=== PATIENT | female | born 1960 | race African-American/Black ===

== ENCOUNTER 2017-06-01 15:18 | Outpatient (CLI) | payer MEDICARE, MEDICAID | END 2017-06-01 15:19 | disposition home or self-care (01) | LOC: BICMAMMO 15:18 | PROVIDERS: ATTEND Family Medicine | DX: Z12.31 Encounter for screening mammogram for malignant neoplasm of breast (principal) | CPT/HCPCS: 77063; 77067 ==

== ENCOUNTER 2017-10-05 11:43 | Outpatient (CLI) | payer MEDICARE, MEDICAID | END 2017-10-05 11:44 | disposition home or self-care (01) | LOC: BICRAD 11:43 | PROVIDERS: ATTEND Internal Medicine | DX: R10.12 Left upper quadrant pain (principal); R10.13 Epigastric pain; K59.00 Constipation, unspecified; R11.2 Nausea with vomiting, unspecified; R63.4 Abnormal weight loss; I70.0 Atherosclerosis of aorta; I77.810 Thoracic aortic ectasia | CPT/HCPCS: 74022 ==

== ENCOUNTER 2017-12-20 08:38 | Outpatient (CLI) | payer MEDICARE, MEDICAID ==
--- NOTE | 2017-12-20 10:51 | CT ---
CT ABDOMEN AND PELVIS WITHOUT CONTRAST: 12/20/2017 PROVIDED CLINICAL HISTORY: Left upper quadrant pain. Early satiety. COMPARISON: 12/02/2014 FINDINGS: The visualized lung bases are free of significant opacity. The solid abdominal organs are suboptimally evaluated in the absence of IV contrast material. Promin ent vascular calcifications are seen. Predominantly vascular calcifications are noted involving each kidney, with urinary tract calculi difficult to entirely exclude. There is no evidence for ureteral or bladder calculus. There is no bowel dilatation, inflammatory fat stranding, free fluid, or lymph node enlargement appar ent. The abdominal aorta is ectatic, measuring up to 2.7 cm proximally. Conspicuous atherosclerotic vascular calcification involves the iliac arteries bilaterally. The osseous structures demonstrate no concerning osteoblastic or osteolytic lesions. A benign appear ing sclerotic focus in the left femoral neck appears stable, with respect to the prior study. There is a small gastric diverticulum arising from the gastric cardia. IMPRESSION: No evidence for an acute process. POS: [facility]
== END 2017-12-20 08:39 | disposition home or self-care (01) ==
LOC: BICCT 08:38
PROVIDERS: ATTEND Internal Medicine
DX: K29.60 Other gastritis without bleeding (principal); R10.12 Left upper quadrant pain; R68.81 Early satiety; R63.4 Abnormal weight loss
CPT/HCPCS: 74176

== ENCOUNTER 2018-01-11 06:59 | Outpatient (CLI) | payer MEDICARE, MEDICAID ==
--- NOTE | 2018-01-11 13:09 | NM ---
RADIONUCLIDE GASTRIC EMPTYING SCAN: HISTORY: Abdominal pain. Gastritis. FINDINGS: Gated anterior planar images show good mixing of radiotracer. Half-life emptying calculated at 81 mi nutes. TIME PERCENT EMPTYING 30 minutes 26% 60 minutes 42% 2 hours 68% 3 hours 83% 4 hours 91% IMPRESSION: No evidence of gastric outlet obstruction. Half-life emptying upper limits of normal. POS: [facility]
== END 2018-01-11 07:00 | disposition home or self-care (01) ==
LOC: NM 06:59
PROVIDERS: ATTEND Internal Medicine
DX: K29.60 Other gastritis without bleeding (principal); R10.12 Left upper quadrant pain; R68.81 Early satiety
CPT/HCPCS: 78264; A9541

== ENCOUNTER 2018-02-10 09:54 | Inpatient (IN) | payer MEDICARE, MEDICAID ==
[2018-02-10] MEDS ORDERED: Nitroglycerin 2% Ointment 1 INCH/1 GM Packet ONE (10:22)
[2018-02-10] MEDS ORDERED: Metoprolol Tartrate 5 MG/5 ML VIAL ONE ×2 (10:22→12:33)
[2018-02-10 10:25] LABS: #Lymphocytes 2.1 thou/uL (1.20-3.40); #Monocytes 0.4 thou/uL (0.11-0.59); #Neutrophils 5.7 thou/uL (1.40-6.50); %Basophils 0.4 % (0.0-1.0); %Eosinophils 0.5 % (0.0-10.0); %Lymphocytes 24.7 % (21.0-51.0); %Monocytes 5.2 % (0.0-10.0); %Neutrophils 69.2 % (42.0-75.0); Hemoglobin 11.2 g/dL (12.0-16.0); Mean Corpuscular HGB CONC 32.4 g/dL (32.0-36.0); Mean Corpuscular Hemoglobin 33.2 pg (27.0-31.0); Mean Platelet Volume 7.7 fL (7.4-10.4); Platelet Count 212 thou/uL (130-400); RBC Distribution Width 16.2 % (11.5-14.5); Red Blood Cell (RBC) Count 3.38 mill/uL (4.20-5.40); White Blood Cell (WBC) Count 8.3 thou/uL (4.8-10.8)
[2018-02-10] MEDS ORDERED: Ondansetron PF 4 MG/2 ML Vial ONE (10:33)
[2018-02-10 10:39] LABS: ALT (SGPT) 7 U/L (8-55); AST (SGOT) 12 U/L (5-34); Albumin 3.7 g/dL (3.5-5.0); Alkaline Phosphatase 80 U/L (40-150); Anion Gap 19 mmol/L (10-20); BUN (Urea Nitrogen) 17 mg/dL (9.8-20.1); Bilirubin, Total 0.6 mg/dL (0.2-1.2); CK (CPK) 63 U/L (29-168); Calc. Creatinine Clearance 0 mL/min (70-130); Calcium 9.5 mg/dL (7.8-10.44); Carbon Dioxide 19 mmol/L (22-29); Chloride 104 mmol/L (98-107); Estimated GFR-MDRD 45; Globulin 4.1 g/dL (2.4-3.5); Glucose 92 mg/dL (70-105); Protein, Total 7.8 g/dL (6.0-8.3); Sodium 138 mmol/L (136-145)
[2018-02-10 10:44] LABS: CKMB 2.2 ng/mL (0-6.6); Troponin I 0.215 ng/mL (< 0.028)
--- NOTE | 2018-02-10 12:14 | RAD ---
PORTABLE CHEST 1 VIEW: Date: 02/10/18 Time: 0927 hours HISTORY: Chest pain. FINDINGS: Comparison made with exam of 12/25/07. The heart size is normal. The aorta is tortuous. The lungs are well expanded without focal areas of c onsolidation, pneumothoraces, or pleural effusions. IMPRESSION: No radiographic evidence of acute cardiopulmonary process. POS: [facility]
--- NOTE | 2018-02-10 12:26 | PDOC.FPRHP ---
- History of Present Illness Chief Complaint: Chest pain History of Present Illness: Ms. Bustillos is a 58 year old female that presents to the ED with complain of CP She reports the CP began this morning and describes it as right sided and radiating into both arms, made worse by lying flat. She attempted taking Pepcid without relief. She has never had this kind of pain before, she reports abdominal pain for 6 months with associated nausea with PO intake. She does not have a history of CAD disease and denies SOB, CARPENTER, palpitations, N/V/D, changes in vision or headache. Pain is not made worse with activity. She reports vomiting red tinged sputum in ED. recently being treated outpatient for h. pylori gastritis and gastroparesis ED Course: CBC, CMP, Lipase, CK, Trop .215, occult blood of sputum Zofran, metoprolol, TD nitro Dynamic EKG changes: T wave inversions/ST segment depression - Allergies/Adverse Reactions Allergies Allergy/AdvReac Type Severity Reaction Status Date / Time sulfamethoxazole Allergy Verified 01/28/16 15:21 [From Bactrim] trimethoprim [From Bactrim] Allergy Verified 01/28/16 15:21 - Home Medications Medication Instructions Recorded Confirmed Type Aspirin [Ecotrin] 81 mg PO DAILY 02/10/18 02/10/18 History Clopidogrel Bisulfate [Plavix] 75 mg PO DAILY 02/10/18 02/10/18 History Lubiprostone [Amitiza] 24 mcg PO BID- 02/10/18 02/10/18 History Metoclopramide HCl [Reglan] 5 mg PO TID- 02/10/18 02/10/18 History Metoprolol Tartrate [Lopressor] 50 mg PO BID 02/10/18 02/10/18 History NIFEdipine [Nifedipine ER] 60 mg PO DAILY 02/10/18 02/10/18 History Pioglitazone HCl [Actos] 45 mg PO DAILY 02/10/18 02/10/18 History Simvastatin 40 mg PO HS 02/10/18 02/10/18 History - History PMHx:DMII, HTN, HLD, PVD, h. pylori gastritis, gastroparesis, CKD3 PSHx: AKA, vascular stenting of carotid and LE, hysterectomy, csection FHx: unsure Social: 30+ pk year smoking history, former alcohol and drug abuser, still smoking marijuana, no IVDA - Review of Systems General: reports: weight/appetite/sleep changes. denies: fever/chills, night sweats Eyes: denies: eye pain, vision changes ENT: reports: nasal congestion, rhinorrhea Respiratory: reports: cough, congestion. denies: shortness of breath, exercise intolerance Cardiovascular: reports: chest pain. denies: palpitation, edema, paroxysmal nocturnal dyspnea, orthopnea Gastrointestinal: reports: nausea, vomiting, abdominal pain. denies: diarrhea, constipation Genitourinary: denies: incontinence, dysuria Skin: denies: rashes, lesions Musculoskeletal: denies: pain, tenderness Neurological: denies: numbness, syncope, weakness - Vital signs BP: 164/97 HR: 73 RR: 18 Tmax: 98.4 Pox: 98% on RA Wt: 59.42kg - Physical Exam Constitutional: NAD HEENT: normocephalic and atraumatic, grossly normal vision, grossly normal hearing Neck: trachea midline Chest: no-tender to palpation, no lesions Heart: RRR, normal S1/S2, no murmurs/rubs/gallops, pulses present, no edema Lungs: CTAB, no respiratory distress, good air movement, no wheezing, no retractions Abdomen: soft, non-tender Musculoskeletal: normal structure, ROM grossly normal Neurological: no focal deficit Skin: no rash/lesions, good turgor Heme/Lymphatic: no unusual bruising or bleeding Psychiatric: normal mood and affect FMR H&P: Results - Labs Result Diagrams: 02/10/18 10:06 02/10/18 10:06 Lab results: WBC 8.3 thou/uL (4.8-10.8) 02/10/18 10:06 Hgb 11.2 g/dL (12.0-16.0) L 02/10/18 10:06 Hct 34.6 % (36.0-47.0) L 02/10/18 10:06 MCV 102.0 fL (78.0-98.0) H 02/10/18 10:06 Plt Count 212 thou/uL (130-400) 02/10/18 10:06 Neutrophils % 69.2 % (42.0-75.0) 02/10/18 10:06 Sodium 138 mmol/L (136-145) 02/10/18 10:06 Potassium 4.0 mmol/L (3.5-5.1) 02/10/18 10:06 Chloride 104 mmol/L (98-107) 02/10/18 10:06 Carbon Dioxide 19 mmol/L (22-29) L 02/10/18 10:06 BUN 17 mg/dL (9.8-20.1) 02/10/18 10:06 Creatinine 1.44 mg/dL (0.6-1.1) H 02/10/18 10:06 Glucose 92 mg/dL (70-105) 02/10/18 10:06 Calcium 9.5 mg/dL (7.8-10.44) 02/10/18 10:06 Total Bilirubin 0.6 mg/dL (0.2-1.2) 02/10/18 10:06 AST 12 U/L (5-34) 02/10/18 10:06 ALT 7 U/L (8-55) L 02/10/18 10:06 Alkaline Phosphatase 80 U/L (40-150) 02/10/18 10:06 Creatine Kinase 63 U/L (29-168) 02/10/18 10:06 CK-MB (CK-2) 2.2 ng/mL (0-6.6) 02/10/18 10:06 Serum Total Protein 7.8 g/dL (6.0-8.3) 02/10/18 10:06 Albumin 3.7 g/dL (3.5-5.0) 02/10/18 10:06 Lipase 4 U/L (8-78) L 02/10/18 10:06 - EKG Interpretation EK EKGs with dynamic changes: t wave inversions and ST depression FMR H&P: A/P - Problem List (1) Atypical chest pain Current Visit: Yes Status: Acute Code(s): R07.89 - OTHER CHEST PAIN (2) Elevated troponin Current Visit: Yes Status: Acute Code(s): R74.8 - ABNORMAL LEVELS OF OTHER SERUM ENZYMES (3) PVD (peripheral vascular disease) Current Visit: Yes Status: Acute Code(s): I73.9 - PERIPHERAL VASCULAR DISEASE, UNSPECIFIED (4) S/P AKA (above knee amputation) Current Visit: Yes Status: Acute Code(s): Z89.619 - ACQUIRED ABSENCE OF UNSPECIFIED LEG ABOVE KNEE (5) HTN (hypertension) Current Visit: Yes Status: Acute Code(s): I10 - ESSENTIAL (PRIMARY) HYPERTENSION (6) DMII (diabetes mellitus, type 2) Current Visit: Yes Status: Acute (7) HLD (hyperlipidemia) Current Visit: Yes Status: Acute Code(s): E78.5 - HYPERLIPIDEMIA, UNSPECIFIED (8) Tobacco abuse Current Visit: Yes Status: Acute Code(s): Z72.0 - TOBACCO USE - Plan Atypical chest pain - NSTEMI, poss. pericarditis - trop: .214-->2.41, EKG NSR w/ ST depression and inverted T waves, CXR neg - ESR/CRP pending - ASA and Nitro TD, consider therapeutic lovenox - admit to telemetry, trend troponins, EKG for chest pain, vital signs Q4hr - NM stress test and echo pending - cardiology, Dr. hSort consulted, appreciate recs PVD - h/o multiple stent placement, antiplatelet therapy initiated in the past - home asa and plavix DMII - well controlled, recent hba1c 5.1 - continue home medications HTN - elevated, hydralazine PRN - continue home medications HLD - continue home medication Gastritis - continue home meds, IV protonix - possible source of red GI material, positive occult blood - consider GI consult, hold plavix Tobacco abuse - encourage cessation Code: full PPX: lovenox Disposition/LOS: admit to telemetry, trend troponin, stress and echo in AM FMR H&P: Upper Level - Pertinent history 58 y/o F with PMHx DM2, HTN, HLD, CKD3 who presents to the ED complaining of chest pain. The patient reports that her chest pain started at 3 am when she woke up and is in the center of her chest radiating to bilateral arms. She had difficulty describing the pain. She took peptobismol because she was concerned for it being from her stomach, but that did not help. She reports the pain is worse when lying flat and was relieved by sitting up. She reports that she recently started feeling like she was getting an acute URI. She endorses a h/o H. pylori. She denies any SOB, palpitations, diaphoresis. She states that the chest pain has resolved after getting nitro in the ED. - Pertinent findings Vitals: BP 163/107, HR 79, RR 16, Temp 98.4, O2 sat 96% on RA PE: Gen - alert, oriented, NAD CV - RRR, 3/6 systolic murmur Resp - CTAB, no wheezes, rubs, rales, rhonchi Abd - soft, NTTP, normoactive bowel sounds Ext - R AKA EKG - NSR, age undetermined anteroseptal infarct, T wave inversions in leads I, V1, V2 Trop 0.215->2.128, Gastric occult blood positive, Hb 11.2 CXR - no acute intrathoracic abnormality - Plan Date/Time: 02/10/18 1224 I, Lizbeth Rollins MD, PGY-2, have evaluated this patient and agree with findings/ plan as outlined by international trade compliance manager resident. Pertinent changes/additions are listed here. 58 y/o F presents with atypical chest pain and hematemesis. 1. NSTEMI Heart score 6. Two prior normal stress tests "several years ago". Initial trop 0.215, trended up to 2.128. Three EKG's were done that showed various different abnormalities including T wave inversions in leads I, V1, and V2. -Admit to tele -Echo -Nitro prn -Consulted Dr. Short with Cardiology, appreciate recs regarding anticoagulation vs laborer yard -Trend trops 2. Hematemesis likely 2/2 Erosive Gastritis. Pt had gastric secretions positive for occult blood. Reviewing Dr. Domingeuz's prior EGD report from 11/10, the patient had severe erosive gastritis and the biopsy came back as chronic gastritis. She has a h/o H. pylori that has been successfully treated. -Protonix 40mg IV BID -NPO -Will trend H/H -Consult Dr. Dominguez tomorrow 3. Reviewed and agree with international trade compliance manager assessment and plan for chronic medical conditions. Code status: Full Attending Addendum - Attending Addendum Date/Time: 02/10/18 0531 I personally evaluated the patient and discussed the management with Dr. Aguirre. I agree with the History, Examination, Assessment and Plan documented above with any addition or exceptions noted below. The patient presents after waking up with substernal chest at 3 a.m. this morning. She is unable to describe the pain but notes it is worse when lying flat and gets better when sitting up. She has also had nausea and vomiting that was positive for occult blood. She has a history of severe erosive gastritis and has had GI workup in past few months. She tried pepto-bismol for the pain but it didn't help. She rates the pain as a 10/10 at its worse and states it has come and gone several times while in the ER. Pt has peripheral vascular disease and has history of prior stents and takes aspirin and plavix regularly. Initial trop indeterminate and repeat troponin up to 2. Initial ekg showed inverted t-waves that changed on subsequent ekg's. We have consulted cardiology. It appears pt is having an nstemi. With her possible GI bleed we are deferring anticoagulation to cardiology as there is concern that it could worsen a possible bleed. She has already received aspirin. Currently she is chest pain free. Also checking esr and crp. Trend hemoglobin and may consult gi tomorrow.
[2018-02-10] MEDS ORDERED: Labetalol HCl 100 MG/20 ML VIAL ONE (12:36)
[2018-02-10 14:05] LABS: Troponin I 2.128 ng/mL (< 0.028)
[2018-02-10] MEDS ORDERED: Ondansetron PF 4 MG/2 ML Vial IVP PRN (14:55)
[2018-02-10] MEDS ORDERED: Ondansetron ODT 4 MG TAB PO PRN (14:55)
[2018-02-10] MEDS ORDERED: hydrALAZINE 20 MG/ML VIAL SLOW IVP PRN (14:55)
[2018-02-10] MEDS ORDERED: Nitroglycerin 2% Ointment 1 INCH/1 GM Packet TOP PRN (14:55)
[2018-02-10] MEDS ORDERED: HumaLOG 300 UNITS/3 ML VIAL SC PRN ×2 (15:05)
[2018-02-10] MEDS ORDERED: Dextrose 50% Abboject 50 ML SYRINGE SLOW IVP PRN (15:05)
[2018-02-10] MEDS ORDERED: Dextrose 5% in Water 1,000 ML IV PRN (15:05)
[2018-02-10 16:21] LABS: Hemoglobin 10.7 g/dL (12.0-16.0)
[2018-02-10 16:48] LABS: Troponin I 8.075 ng/mL (< 0.028)
[2018-02-10] MEDS: Lactated Ringer's 1,000 ML IV SCH (18:13)
[2018-02-10] MEDS ORDERED: Metoclopramide HCl 10 MG TAB PO SCH (19:45)
[2018-02-10 19:48] LABS: Troponin I 9.355 ng/mL (< 0.028)
[2018-02-10] MEDS: Pantoprazole 40 MG VIAL IVP SCH (20:09)
[2018-02-10] MEDS: Atorvastatin Calcium 40 MG TAB PO SCH (20:09)
[2018-02-10] MEDS: Metoprolol Tartrate 50 MG TAB PO SCH (20:09)
[2018-02-10] MEDS ORDERED: Heparin 10,000 UNITS/ 10 ML VIAL SLOW IVP SCH (21:00)
[2018-02-10] MEDS ORDERED: Heparin 25,000 units/D5W 500 ML IVPB SCH (21:00)
[2018-02-10 21:30] LABS: Hemoglobin 9.5 g/dL (12.0-16.0); Platelet Count 140 thou/uL (130-400)
[2018-02-10 22:09] LABS: CKMB 43.3 ng/mL (0-6.6); Troponin I 10.362 ng/mL (< 0.028)
[2018-02-11] MEDS: Lactated Ringer's 1,000 ML IV SCH ×3 (03:30→20:39)
[2018-02-11 03:39] LABS: #Basophils 0.1 thou/uL (0.0-0.2); #Lymphocytes 1.3 thou/uL (1.20-3.40); #Monocytes 0.4 thou/uL (0.11-0.59); #Neutrophils 5.3 thou/uL (1.40-6.50); %Eosinophils 0.7 % (0.0-10.0); %Lymphocytes 17.9 % (21.0-51.0); %Monocytes 6.2 % (0.0-10.0); %Neutrophils 74.2 % (42.0-75.0); Hemoglobin 9.4 g/dL (12.0-16.0); Mean Corpuscular HGB CONC 32.5 g/dL (32.0-36.0); Mean Corpuscular Hemoglobin 33.2 pg (27.0-31.0); Mean Platelet Volume 8.1 fL (7.4-10.4); Platelet Count 197 thou/uL (130-400); RBC Distribution Width 16.3 % (11.5-14.5); Red Blood Cell (RBC) Count 2.83 mill/uL (4.20-5.40); White Blood Cell (WBC) Count 7.1 thou/uL (4.8-10.8)
[2018-02-11 03:58] LABS: Anion Gap 11 mmol/L (10-20); BUN (Urea Nitrogen) 19 mg/dL (9.8-20.1); Calc. Creatinine Clearance 45 mL/min (70-130); Calcium 8.9 mg/dL (7.8-10.44); Carbon Dioxide 23 mmol/L (22-29); Chloride 107 mmol/L (98-107); Estimated GFR-MDRD 49; Glucose 105 mg/dL (70-105); Sodium 137 mmol/L (136-145)
[2018-02-11 05:23] LABS: Critical Call Chem Troponin I RESULT DECREASING; Troponin I 9.601 ng/mL (< 0.028)
--- NOTE | 2018-02-11 06:18 | PDOC.FM ---
- Subjective Subjective: Ms. Bustillos reports feeling well today. Had an episode of chest pain yesterday at 3am, review of tele strip shows NSR. Denies any further episodes of hematemesis. Denies feeling lightheaded, dizzy, or having palpitations. - Objective MAR Reviewed: Yes Vital Signs & Weight: Vital Signs (12 hours) Temp Pulse Resp BP Pulse Ox 02/11/18 04:16 94 L 02/11/18 03:31 97.9 F 87 18 115/54 L 95 02/10/18 19:40 98.5 F 98 18 141/63 H 92 L Weight Weight 61.689 kg I&O: 02/09/18 02/10/18 02/11/18 06:59 06:59 06:59 Intake Total 0 Output Total 0 Balance 0 Result Diagrams: 02/11/18 03:26 02/11/18 03:26 EKG Reviewed by me: Yes <Jacqui Louise - Last Filed: 02/11/18 07:45> - Objective Vital Signs & Weight: Vital Signs (12 hours) Temp Pulse Resp BP Pulse Ox 02/11/18 07:15 98.5 F 86 15 125/58 L 93 L 02/11/18 04:16 94 L 02/11/18 03:31 97.9 F 87 18 115/54 L 95 Weight Weight 61.377 kg I&O: 02/10/18 02/11/18 02/12/18 06:59 06:59 06:59 Intake Total 1377 Output Total 0 Balance 1377 Result Diagrams: 02/11/18 03:26 02/11/18 03:26 <Wu Lin - Last Filed: 02/11/18 11:02> Phys Exam - Physical Examination Constitutional: NAD HEENT: PERRLA, sclera anicteric Neck: full ROM Respiratory: no rales, no rhonchi decreased breath sounds b/l Cardiovascular: RRR, no significant murmur Gastrointestinal: soft, non-tender, no distention, positive bowel sounds Musculoskeletal: no edema, pulses present AKA Neurological: moves all 4 limbs Psychiatric: normal affect, A&O x 3 Skin: no rash, normal turgor, cap refill <2 seconds <Jacqui Louise - Last Filed: 02/11/18 07:45> Dx/Plan (1) NSTEMI (non-ST elevated myocardial infarction) Code(s): I21.4 - NON-ST ELEVATION (NSTEMI) MYOCARDIAL INFARCTION Status: Acute (2) Upper gastrointestinal bleed Code(s): K92.2 - GASTROINTESTINAL HEMORRHAGE, UNSPECIFIED Status: Acute (3) PVD (peripheral vascular disease) Code(s): I73.9 - PERIPHERAL VASCULAR DISEASE, UNSPECIFIED Status: Acute (4) S/P AKA (above knee amputation) Code(s): Z89.619 - ACQUIRED ABSENCE OF UNSPECIFIED LEG ABOVE KNEE Status: Acute (5) HTN (hypertension) Code(s): I10 - ESSENTIAL (PRIMARY) HYPERTENSION Status: Acute (6) DMII (diabetes mellitus, type 2) Status: Acute (7) HLD (hyperlipidemia) Code(s): E78.5 - HYPERLIPIDEMIA, UNSPECIFIED Status: Acute (8) Tobacco abuse Code(s): Z72.0 - TOBACCO USE Status: Acute - Plan Plan: 58 yo F with PMH DM2, PVD, HLD, HTN with NSTEMI and UGI bleed NSTEMI -Trops elevated by plateaued at 9 (from 10) -Tele strip shows NSR -On ASA, statin, heparin, transdermal nitro, BB -Dr. Short consulted & on board- follow rx regarding cath. Will hold heparin this AM for procedure -Echo pending -Elevated ESR/CRP, pending cath results can consider pericarditis PVD -hx of multiple stent placements -on ASA Upper GI Bleed -FOBT+, recent hematemesis -IV protonix -Endoscopic gastric path in 10/2017 showed chronic gastritis, negative for H. pylori -Hb stable at 9.4 (11 at admission) -clinically stable, continue to monitor H/H -will consult Dr. Dominguez Chronic Gastritis -see above Delayed gastric emptying -per GET done on 12/2017 -on metoclopramide, continue Macrocytic anemia -prior records show this is chronic -will check folate & b12 -can consider pernicious anemia if b12 low CKD3 -unchanged from baseline per prior hospital admissions -IVF, continue to monitor HTN -hydralazine PRN -procardia HLD -statin DM2, controlled -contine home meds Tobacco abuse - aware, discuss cessation dvt ppx: heparin (held for procedure) gi ppx: protonix <Jacqui Louise - Last Filed: 02/11/18 07:45> Attending Addendum - Attending Addendum Date/Time: 02/11/18 1100 I personally evaluated the patient and discussed the management with Dr. Shoshana Louise. I agree with the History, Examination, Assessment and Plan documented above with any addition or exceptions noted below. Patient here with currently presumed NSTEMI versus possible pericarditis. She is undergoing heart cath this morning after overnight heparin drip. Await cardiology recs after procedure. This is also suggestion of upper GI bleed after episode of emesis in known setting of erosive gastritis. Continue Protonix IV BID and trending H/H. If continues to trend down, consult GI and transfuse as necessary. Trop now downtrending, Renal function stable. <Wu Lin - Last Filed: 02/11/18 11:02>
[2018-02-11] MEDS: NIFEdipine XL 60 MG TAB PO SCH (08:40)
[2018-02-11] MEDS: Metoprolol Tartrate 50 MG TAB PO SCH ×2 (08:40→20:26)
[2018-02-11] MEDS: Pantoprazole 40 MG VIAL IVP SCH ×2 (08:47→20:26)
[2018-02-11] MEDS ORDERED: Lidocaine 1% (PF) 30 ML VIAL ONE (09:23)
[2018-02-11] MEDS ORDERED: HumaLOG 300 UNITS/3 ML VIAL SC PRN ×2 (09:27→14:00)
--- NOTE | 2018-02-11 10:21 | CON ---
DATE OF CONSULTATION: 02/11/2018 HISTORY OF PRESENT ILLNESS: Ms. Bustillos is a 58-year-old black female who was admitted for NSTEMI. Cardiology has evaluated this patient. The plan is for her to go for possible cardiac catheterizatio n. We are being consulted for her chronic renal failure. I saw this patient at the [facility] on 01/02 and her creatinine was noted at 1.25. She has underlying chronic renal failure from hyper tensive nephropathy. This morning, she denies any overt chest pain or shortness of breath. REVIEW OF SYSTEMS: No chest pain or shortness of breath, no nausea, no vomiting, no diarrhea, no con stipation, no syncopal episode, no productive cough, no fever or chills. Appetite and energy level i s fair. HOME MEDICATIONS: Includes the following, aspirin 81 mg tab once a day, clopidogrel 75 mg tab once a day, Amitiza 24 mcg p.o. b.i.d., Reglan 5 mg p.o. t.i.d. with meals, metoprolol 50 mg p.o. b.i.d., n ifedipine 60 mg ER tab once a day. CURRENT MEDICATIONS: Includes Humalog sliding scale, Protonix 40 mg IV q.12 hours, Actos 45 mg once a day. PAST MEDICAL HISTORY: 1. Chronic renal failure from hypertensive nephropathy. 2. Coronary artery disease. 3. Peripheral vascular disease. 4. Type 2 diabetes mellitus. 5. Hyperlipidemia. 6. Hypertension. PAST SURGICAL HISTORY: 1. Status post left AKA. 2. Status post right CEA. 3. Status post hysterectomy. 4. Status post colonoscopy. 5. Status post section. 6. Status post right nipple surgery. 7. Status post stent placement of the left femoral artery. SOCIAL HISTORY: Patient is single, lives in [place]. She has 5 children with one . Retired w [employer]. Education: GED. Alcohol none. Occasional marijuana use. Sedentary lifestyle. She smoke d for 30 years about 1 pack a day, currently still smoking occasionally. Minimal alcohol. FAMILY HISTORY: Noncontributory. ALLERGIES: BACTRIM. TRAUMA: None. IMMUNIZATIONS: Up to date. HOSPITALIZATIONS: Please see past medical history. PHYSICAL EXAMINATION: VITAL SIGNS: Blood pressure is 125/58, heart rate 86, respiratory rate 15, temperature 98.5, pulse o x 93% on room air. GENERAL: Awake, alert, comfortable, not in distress. SKIN: Adequate turgor. HEENT: She has pinkish conjunctivae, anicteric sclerae. NECK: No neck mass, no carotid bruits, no JVD. CHEST: No deformities. LUNGS: Clear breath sounds, no wheezing, no crackles. HEART: Normal sinus rhythm. Grade 2/6 systolic murmur, no gallops or rubs. ABDOMEN: Globular, soft, nontender, no masses. EXTREMITIES: Status post AKA. LABORATORY DATA: Of 02/11/2018, white count 7.1, hemoglobin 9.4. Sodium 137, potassium 4, chloride 107, carbon dioxide 23, BUN 19, creatinine 1.35, calcium 8.9, troponin I 9.61. ASSESSMENT AND PLAN: 1. [id number] elevation myocardial infarction - Cardiology following for possible cardiac cathet erization. 2. Chronic renal failure from hypertensive nephropathy. I agree with current IV volume repletion pr ior to the said cardiac catheterization. My feeling is she will tolerate the said cardiac catheteriz ation from a renal point of view. We did use a precaution of IV hydration before and after the said procedure. Please note, there is no indication for any dialytic intervention. 3. Chronic renal failure. This is secondary from her hypertensive nephropathy. Continue supportive care. Continue gentle volume IV hydration.
[2018-02-11] MEDS: Metoclopramide HCl 10 MG TAB PO SCH ×3 (10:26→17:35)
[2018-02-11] MEDS ORDERED: Iopamidol 370 76% 100 ML VIAL ONE (10:55)
[2018-02-11] MEDS ORDERED: Nitroglycerin 0.4 MG TAB (25 Tab Bottle) SL PRN (11:08)
[2018-02-11] MEDS ORDERED: traMADol HCl 50 MG TAB PO PRN (11:08)
[2018-02-11] MEDS ORDERED: Acetaminophen/Codeine 30-300mg Tablet PO PRN ×2 (11:08)
[2018-02-11] MEDS ORDERED: Sodium Chloride 0.9% 200 ML IV SCH (11:08)
[2018-02-11] MEDS ORDERED: Clopidogrel Bisulfate 75 MG TAB PO SCH (11:15)
[2018-02-11] MEDS: Pioglitazone HCl 45 MG TAB PO SCH (11:40)
[2018-02-11] MEDS: Lubiprostone 24 MCG CAP PO SCH ×2 (11:44→16:59)
[2018-02-11 12:55] LABS: Folate (Folic Acid) 4.6 ng/mL (7.0-31.4)
--- NOTE | 2018-02-11 14:15 | CON ---
CARDIOLOGY CONSULT NOTE DATE OF ADMISSION: 02/10/2018 DATE OF CONSULTATION: 02/10/2018 INDICATION FOR CONSULTATION: This is a 58-year-old female with a non-ST segment elevation myocardial infarction. HISTORY OF PRESENT ILLNESS: This is a very unfortunate 58-year-old female who I followed on and off for about 17 years, had developed frontal chest pain around 3:00 this morning. She took some aspirin . The pain persisted. She eventually went to the emergency room around 3:00 in the afternoon and wa s given some medications and now the discomfort apparently has resolved. In the interim, she was not ed to have slight elevation of the cardiac enzymes. Her troponin I on admission was 0.215 and then i ncreased to 2.1 and now has increased up to 8.075. Her initial MB was 2.2. At this time, she is melissa n free. The EKG still shows no acute changes. She did have some nonspecific T-wave inversions in th e lateral leads. She has decreased R-wave progression in V1 through V3, which is an old finding for her. She has had no significant R-wave progression in the past. She has had negative stress test. Her last one was in 2011, which showed ejection fraction of 78% with no evidence of ischemia. She al so a stress test in 2007, which showed no evidence of ischemia. She has not had a cardiac catheteriz ation. She has had significant peripheral vascular disease, she has undergone a right iliac stent pl acement and then re-dilatation by Dr. 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 She is able to walk some, but mainly is in a wheelchair the majority of the time. She denied any claudication symptoms at this time. She h as been having some GI problems. She actually had a nuclear evaluation, which showed a gastric empty ing to be the upper limits of normal. She had no outlet obstruction. She says she has lost about 70 pounds, so she can eat; when she eats, she has nausea and vomiting. She was started on metocloprami de, but still continues to have nausea and vomiting after she eats. She was treated for H. pylori in September of this year. Since that time, she has lost about 60-70 pounds. At this time, she is pain kim e. She is asymptomatic. PAST MEDICAL HISTORY: Significant for the peripheral vascular disease of the right iliac stent place ment to left AKA due to embolic phenomena with uncertain etiology origin. She has chronic kidney dis ease for which she has been followed by Dr. Louise. She has had a cholecystectomy, hysterectomy, and C- section. She has had a right breast biopsy. She has had a history of H. pylori. She has had hypert ension, hypercholesterolemia, diabetes. SOCIAL HISTORY: She continues to smoke a pack a day. No significant alcohol use. FAMILY HISTORY: Unremarkable for any early heart disease. Her mother at age 53 and had a histo ry of hypertension and hypercholesterolemia. MEDICATIONS: Include potassium, Plavix, pioglitazone, aspirin, simvastatin, nifedipine, metoprolol, Amitiza, and metoclopramide. ALLERGIES: None. REVIEW OF SYSTEMS: A 12-point review of systems is unremarkable. She denied any new headache, visua l changes, or hearing loss. She had no pulmonary complaints such as asthma, emphysema, bronchitis, o r coughing. She does smoke and smokes about a pack a day and has done so for many years. She has sm oked up to as much as 2 to 2-1/2 packs a day. Cardiovascular: Only for what is noted in the history of present illness. She denied any chest pain or significant dyspnea on exertion or shortness of br eath. Gastrointestinal: As noted above. She has abdominal pain, nausea, and vomiting and has lost significant weight. She has been seen by the GI doctors. Genitourinary: She denies any dysuria, po lyuria, or hematuria. Musculoskeletal: No significant swelling, myalgias, or arthralgias; however, she is unable to ambulate very far as she mainly is in a wheelchair. Neurological: No history of se izures or syncope. PHYSICAL EXAMINATION: GENERAL: Reveals a middle-aged female who is in no acute distress. VITAL SIGNS: Her blood pressure is 189/106, previous was 149/89, heart rate is 81 and regular, respi ratory rate is 20. HEENT: Shows head to be normocephalic and atraumatic. There were no significant bruits. She does h ave what appears to be a soft bruit on the left side, carotid bruit. Otherwise, there were no signif icant bruits noted. There is no JVD noted. The thyroid did not appear to be enlarged. CHEST: Clear to auscultation without any rales, rhonchi, or wheezing. CARDIOVASCULAR: Reveals a regular rate and rhythm with normal S1, S2. There were no S3, S4. There were no significant murmurs, heaves, thrills, bruits, or rubs. ABDOMEN: Soft and nontender. Positive bowel sounds are present. She also has abdominal bruits whic h may be of the iliac area or she may have renal artery stenosis also, cannot determine exactly where these bruits are coming from, but she does have abdominal bruits. Femoral pulses are very decreased femoral pulse on the left side. She does have a femoral pulse on the right side. A popliteal pulse on the right was not palpable. I cannot palpate pedal pulses on the radial, she does have a palpabl e radial pulse, but the artery does appear to be stiff. DIAGNOSTIC DATA: EKG shows normal sinus rhythm with decreased R-wave progression in V1 through V3 wi th T-wave inversions in I, aVL, V1 and V2, very minimal changes compared to old EKG except for the T- wave abnormalities. IMPRESSION: 1. Non-ST segment elevation myocardial infarction with decreased R-wave progression in anterior lead s. She has had similar EKG in the past and had normal ejection fraction, did not have any indication that she has had a previous anterior myocardial infarction. It is probably best since she has had t he chest pain and abnormal cardiac enzymes, to proceed with a cardiac catheterization. We will try t o hydrate the patient first, will obtain an echocardiogram to see what the left ventricular systolic function is. We will encourage fluids, may need to have the assistance of the bellmaker in order to prevent renal damage in this patient with contrast. Once she is stable, I would suggest that she undergo cardiac catheterization, should she become an emergency, then we will proceed with cardiac ca theterization, but would be risky to cause further renal damage. 2. History of peripheral vascular disease. Hopefully, we will be able to gain access in this lady t hrough the right groin area to the common femoral artery up to the iliacs. We will also reevaluate t hat at that time, based on gradients, but would not suggest an arteriogram at this time. 3. History of diabetes. This will be dealt with by the primary care service. Blood sugar today was 92, it is under good control. 4. History of hypertension. We will need to readjust her medications, again may need the assistance of Nephrology in order to do this. She has no allergies. She is not a candidate for MARKO inhibitors or ARBs to her renal insufficiency. 5. History of tobacco abuse. I have requested that she stopped smoking for the last 17 years and ob viously does not appear that she is going to do so. 6. History of hypercholesterolemia. She will continue with her simvastatin. We will be more than happy to continue to follow this patient with you. Total time evaluating this patient was over 45 minutes after I have reviewed the records, the old rec ords, and also the office note from this lady and also discussed the plan with the patient and also I have also discussed this with her primary tooth grinder.
[2018-02-11] MEDS: Benzonatate 100 MG CAP PO PRN ×2 (15:07→21:59)
[2018-02-11] MEDS ORDERED: Folic Acid 1 MG TAB PO SCH (17:15)
[2018-02-11] MEDS: Atorvastatin Calcium 40 MG TAB PO SCH (20:26)
[2018-02-11] MEDS: Tetrahydrozoline 0.05% OPTH 15 ML BOT EA EYE SCH (21:53)
[2018-02-12] MEDS: Lactated Ringer's 1,000 ML IV SCH ×2 (06:27→15:33)
[2018-02-12] MEDS: Benzonatate 100 MG CAP PO PRN (08:25)
[2018-02-12] MEDS: NIFEdipine XL 60 MG TAB PO SCH (08:25)
[2018-02-12] MEDS: Metoprolol Tartrate 50 MG TAB PO SCH ×2 (08:25→21:05)
[2018-02-12] MEDS: Lubiprostone 24 MCG CAP PO SCH ×2 (08:25→17:15)
--- NOTE | 2018-02-12 08:25 | PDOC.FM ---
- Subjective Subjective: Pt. reports feeling well, feels mildly lightheaded with abrupt sudden position change. Denies palpitations, chest pain, weakness. Also c/o of bilat eye d/c denies vision change, associated with itchiness. - Objective MAR Reviewed: Yes Vital Signs & Weight: Vital Signs (12 hours) Temp Pulse Resp BP Pulse Ox 02/12/18 03:21 98.7 F 89 16 116/57 L 96 Weight Weight 61.263 kg I&O: 02/11/18 02/12/18 02/13/18 06:59 06:59 06:59 Intake Total 1377 2726 Output Total 0 200 Balance 1377 2526 Result Diagrams: 02/11/18 03:26 02/11/18 03:26 <Jacqui Louise - Last Filed: 02/12/18 08:20> - Objective Vital Signs & Weight: Vital Signs (12 hours) Temp Pulse Resp BP Pulse Ox 02/12/18 07:25 97.8 F 81 17 124/60 93 L 02/12/18 03:21 98.7 F 89 16 116/57 L 96 Weight Weight 61.263 kg I&O: 02/11/18 02/12/18 02/13/18 06:59 06:59 06:59 Intake Total 1377 2726 Output Total 0 200 Balance 1377 2526 Result Diagrams: 02/12/18 09:38 02/12/18 09:38 <Wu Lin - Last Filed: 02/12/18 10:46> Phys Exam - Physical Examination Constitutional: NAD HEENT: PERRLA, moist MMs Neck: no nodes Respiratory: no wheezing, no rales, clear to auscultation bilateral Cardiovascular: RRR, no significant murmur Gastrointestinal: soft, non-tender, no distention Musculoskeletal: no edema, pulses present Neurological: moves all 4 limbs Psychiatric: normal affect, A&O x 3 Skin: no rash <Jacqui Louise - Last Filed: 02/12/18 08:20> Dx/Plan (1) NSTEMI (non-ST elevated myocardial infarction) Code(s): I21.4 - NON-ST ELEVATION (NSTEMI) MYOCARDIAL INFARCTION Status: Resolved (2) Erosive gastritis Code(s): K29.60 - OTHER GASTRITIS WITHOUT BLEEDING Status: Acute (3) PVD (peripheral vascular disease) Code(s): I73.9 - PERIPHERAL VASCULAR DISEASE, UNSPECIFIED Status: Acute (4) S/P AKA (above knee amputation) Code(s): Z89.619 - ACQUIRED ABSENCE OF UNSPECIFIED LEG ABOVE KNEE Status: Acute (5) HTN (hypertension) Code(s): I10 - ESSENTIAL (PRIMARY) HYPERTENSION Status: Acute (6) DMII (diabetes mellitus, type 2) Status: Acute (7) HLD (hyperlipidemia) Code(s): E78.5 - HYPERLIPIDEMIA, UNSPECIFIED Status: Acute (8) Tobacco abuse Code(s): Z72.0 - TOBACCO USE Status: Acute - Plan Plan: 58 yo F with PMH DM2, PVD, HLD, HTN with NSTEMI NSTEMI, resolved -s/p cardiac cath, results showed no significant stenosis -continue with agressive medical mgmt: DUAP with plavix, ASA, statin, BB, procardia -Dr. Short following Erosive gastritis -likely source of one episode of mild hematemesis -Dr. Cespedes seen yesterday, was told will consider abd. imaging, appreciate further rx PVD -hx of multiple stent placements -on ASA Delayed gastric emptying -per GET done on 12/2017 -on metoclopramide, continue Macrocytic anemia 2/2 folic acid deficiency -prior records show this is chronic -continue folic acid CKD3 -unchanged from baseline per prior hospital admissions -IVF, continue to monitor -Dr. Cyndie Louise following Allergic conjunctivitis -will give antihistamine drops HTN -hydralazine PRN -procardia HLD -statin DM2, controlled -continue home meds Tobacco abuse - aware, discuss cessation dvt ppx: hold gi ppx: protonix dispo: Continue medical mgmt of chronic conditions, monitor H/H, await specialist recs <Jacqui Louise - Last Filed: 02/12/18 08:20> Attending Addendum - Attending Addendum Date/Time: 02/12/18 1045 I personally evaluated the patient and discussed the management with Dr. Louise. I agree with the History, Examination, Assessment and Plan documented above with any addition or exceptions noted below. Patient here with presumed NSTEMI but negative cath yesterday. Medical mgmt at this time with DAPT. GI recs pending on her chronic gastritis in light of her needing DAPT. Renal function pending this morning but anticipate that it is stable. Mild temperature yesterday that was likely 2/2 cath procedure. Echo was normal. <Wu Lin - Last Filed: 02/12/18 10:46>
[2018-02-12] MEDS: Clopidogrel Bisulfate 75 MG TAB PO SCH (08:26)
[2018-02-12] MEDS: Tetrahydrozoline 0.05% OPTH 15 ML BOT EA EYE SCH ×2 (08:26→21:08)
[2018-02-12] MEDS: Metoclopramide HCl 10 MG TAB PO SCH ×3 (08:26→17:15)
[2018-02-12] MEDS: Pantoprazole 40 MG VIAL IVP SCH ×2 (08:26→21:05)
[2018-02-12] MEDS: Folic Acid 1 MG TAB PO SCH (08:26)
[2018-02-12] MEDS: Pioglitazone HCl 45 MG TAB PO SCH (08:26)
--- NOTE | 2018-02-12 09:24 | CON ---
DATE OF CONSULTATION: 02/11/2018 GI CONSULT REASON FOR CONSULTATION: "Possible erosive gastritis." HISTORY OF PRESENT ILLNESS: Ms. Megan Bustillos is a 58-year-old female, who has been seeing Dr. Dominguez in our office with regard to intermittent pain after eating and probably in the epigastrium and left upper quadrant and intermittent vomiting. She had upper and lower endoscopies earlier this year in 0 10/2017, at which time, she was found to have gastritis. Biopsy showed this to be a chronic inactive gastritis with no H. pylori. Previously in 2016, she has had a colon polyp. She was treated with mu ltiple PPIs, and despite this, still was having early satiety, and again, she reports ongoing weight loss, and ultimately, she had a gastric emptying scan on 01/11/2018. This revealed a gastric half-li fe upper limits of normal. She was 91% emptying at 4 hours. She was started on low dose Reglan 5 mg before meals and at bedtime. This admission, she came to the emergency room today about 9:00 a.m. f or evaluation of chest pain for about 6 hours. She was found at home she reports she had episode of coffee-ground emesis. Here, she had a troponin of 8 and then 10 and was brought emergently to the ca th lab where she was found to have an overt obstruction. She had a proximal and distal RCA occlusion about 30%. She had no stents placed. Presently, she has had no further nausea or vomiting. She st ates that the IV medicines that were given to her seemed to help her stomach. She is going to eat a little bit better than she has in the past several weeks. PAST MEDICAL HISTORY: Diabetes type 2, hypertension, hyperlipidemia, peripheral vascular disease. A bout a year ago, she was treated for H. pylori. More recently, she was found to have mild inactive g astritis on EGD. She does have borderline gastric emptying scan and chronic kidney disease. PAST SURGICAL HISTORY: Includes AKA, vascular stenting of carotid , hysterectomy, . S he has had upper and lower endoscopies in 10/2017. SOCIAL HISTORY: A [id number] smoking history. Former alcohol and drug abuser. Still smokes Snapt uana at times. No IV drug abuse. REVIEW OF SYSTEMS: Early satiety, weight loss, anorexia, nausea if she eats too much with some vomit ing. She has some issues with constipation in the past. She denies any dysphagia or odynophagia. S he had some coffee-ground emesis at home prior to this admission. No melena. She has no fever or ch ills. HOME MEDICATIONS: Simvastatin, Actos, nifedipine, metoprolol, Reglan 5 p.o. t.i.d. with meals, Amiti za, Plavix and aspirin as well as Dexilant. Presently here, she has p.r.n. Tylenol, aspirin, atorvas tatin, Plavix, insulin sliding scale, Amitiza, Reglan 5 p.o. t.i.d. with meals, Procardia p.r.n., nit roglycerin, Nitrostat p.r.n., Zofran p.r.n., Protonix 40 IV q.12 hours, tramadol p.r.n. PHYSICAL EXAMINATION: VITAL SIGNS: Temperature 100.6, on admission 98.5; blood pressure 155/86; respirations 18. HEENT: Oropharynx without lesions. NECK: Supple without adenopathy. LUNGS: Clear. CARDIOVASCULAR: Regular rate and rhythm without clicks, rubs or murmurs. ABDOMEN: Soft, nontender with no rebound or guarding. There were no bruits auscultated. LABORATORY AND X-RAY FINDINGS: Labs at 1600 hours today, the troponin was 8. Her other labs have be en notable for lipase of 4, normal comp metabolic profile, BUN and creatinine 17 and 1.44. Normal li alexandrea function test, AST and ALT of 12 and 7, albumin of 3.7. White count was 8.3 yesterday, hemoglobi n 11.2, platelet count 212. Hemoglobin is now 9.4, it was 10.7 yesterday. PTT is 38.9. INR was 1.1 on admission. ASSESSMENT: 1. Here with myocardial infarction, for which she went to catheterization lab yesterday, now more st abilized. 2. Abdominal pain, epigastric, left upper quadrant after eating with early satiety, sitophobia and w eight loss. She has a borderline gastric emptying scan, upper limits of normal, has been tried on Re glan. I think that likely she has mesenteric ischemia. She continues to smoke and has extensive per ipheral vascular disease. Family notes that Dr. Dominguez has mentioned this in the past as well. With h er borderline renal function, she had not undergone mesenteric imaging. 3. Hematemesis. This apparently occurred while she was in the midst of her myocardial infarction. There has been no significant drop in hemoglobin. No ongoing bleeding. 4. Borderline gastroparesis, likely related to her diabetes. 5. Peripheral vascular disease with coronary artery disease, unlikely she has mesenteric disease. S he continues to smoke. The best thing she could do for herself is stop. RECOMMENDATIONS: 1. Stop smoking. 2. We will discuss with Nephrology and a spread cutter. It may be reasonable to go and get a mesente gabbie angiogram while she is here, but I would not do that today or tomorrow, she had a cardiac cathete rization just yesterday. 3. Continue IV PPIs. 4. Continue p.r.n. Reglan. We will follow along with you.
[2018-02-12] MEDS: Ketotifen Fumarate 0.025% Ophth Soln 5 ml Bottle L EYE SCH ×2 (09:40→21:08)
--- NOTE | 2018-02-12 09:53 | PRG ---
DATE OF SERVICE: 02/12/2018 SUBJECTIVE: Ms. 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 Cardiac catheterization showed no significant stenosis. A cardiac echo has also been do ne, which showed a normal EF. She is being evaluated by GI due to difficulty in eating or developmen t of abdominal pain while eating. The consideration is that she may have significant vascular diseas e in her GI gut. Consideration for CT angio is being entertained; however, due to the recent contras t, we are not able to proceed with this immediately. Renal function has remained stable. A repeat b ase met was ordered today. No other complaints, no chest pain or shortness of breath. PHYSICAL EXAMINATION: VITAL SIGNS: Blood pressure is 116/57, heart rate 89, respiratory rate 16, temperature 98.7, pulse o x 96%. GENERAL EXAM: Awake, alert, comfortable, not in distress. SKIN: Adequate turgor. HEENT: She has pinkish conjunctivae, anicteric sclerae. NECK: No neck mass, no carotid bruits, no JVD. CHEST: No deformities. LUNGS: Clear breath sounds. HEART: Normal sinus rhythm. No murmur, no gallops, no rubs. ABDOMEN: Globular, soft, nontender, no masses. EXTREMITIES: Show no edema on the thigh - please note she has bilateral leg amputation. Please note , she has a left AKA. Medications of 02/12/2018 reviewed. LABORATORY DATA: Laboratories of 02/11/2018, hemoglobin 9.4. 02/12/2018, base met pending. BUN 19, creatinine 1.35 with a GFR of 49 mL per minute. ASSESSMENT AND PLAN: 1. Chronic renal failure from hypertensive nephropathy. The patient is status post cardiac catheter ization with contrast load. Awaiting repeat base met. I agree with current IV fluid. Continue IV h ydration with this patient. 2. Abdominal pain - GI is evaluating. Consideration for a CT angiogram ? in the near future. Overall, agree with current management. There is no indication for any dialytic intervention.
[2018-02-12 09:58] LABS: #Eosinphils 0.1 thou/uL (0.0-0.7); #Lymphocytes 1.3 thou/uL (1.20-3.40); #Monocytes 0.3 thou/uL (0.11-0.59); #Neutrophils 2.8 thou/uL (1.40-6.50); %Basophils 0.6 % (0.0-1.0); %Eosinophils 1.4 % (0.0-10.0); %Lymphocytes 29.1 % (21.0-51.0); %Monocytes 6.6 % (0.0-10.0); %Neutrophils 62.2 % (42.0-75.0); Mean Corpuscular HGB CONC 32.4 g/dL (32.0-36.0); Mean Corpuscular Hemoglobin 33.1 pg (27.0-31.0); Mean Platelet Volume 7.7 fL (7.4-10.4); Platelet Count 133 thou/uL (130-400); White Blood Cell (WBC) Count 4.5 thou/uL (4.8-10.8)
[2018-02-12 10:12] LABS: Anion Gap 10 mmol/L (10-20); BUN (Urea Nitrogen) 10 mg/dL (9.8-20.1); Calc. Creatinine Clearance 61 mL/min (70-130); Calcium 8.4 mg/dL (7.8-10.44); Carbon Dioxide 23 mmol/L (22-29); Chloride 106 mmol/L (98-107); Estimated GFR-MDRD 70; Glucose 92 mg/dL (70-105); Potassium 3.4 mmol/L (3.5-5.1); Sodium 136 mmol/L (136-145)
[2018-02-12] MEDS ORDERED: Potassium Chloride 20 MEQ TAB PO SCH (11:00)
[2018-02-12] MEDS ORDERED: Cepastat Lozenges 1 LOZ PO PRN (11:46)
--- NOTE | 2018-02-12 12:26 | PDOC.CTH ---
Cardiology Progress Note - Subjective The pt seen and examined. No overnight events. No cardiac complaints. - Objective Vital Signs Temp Pulse Resp BP Pulse Ox 02/12/18 07:25 97.8 F 81 17 124/60 93 L 02/12/18 03:21 98.7 F 89 16 116/57 L 96 Weight 135 lb 1 oz 02/11/18 02/12/18 02/13/18 06:59 06:59 06:59 Intake Total 1377 2726 Output Total 0 200 Balance 1377 2526 - Physical Examination General/Neuro: alert & oriented x3 Neck: no JVD present Lungs: CTA Heart: RRR Abdomen: soft Extremities: other: - Telemetry Telemetry Rhythm: SR - Labs Result Diagrams: 02/12/18 09:38 02/12/18 09:38 Troponin/CKMB CK-MB (CK-2) 43.3 ng/mL (0-6.6) H* 02/10/18 21:21 Troponin I 9.601 ng/mL (< 0.028) H* 02/11/18 03:26 - Assessment/Plan 1. NSTEMI with s/p cardiac cath on 02/11/18 with 30% stenosis in porx and distal RCA - stable; on Plavix, ASA, statin, Bblocker. 2. Macrocytic anemia 2/2 folic acid deficiency and acute blood loss - 3. HTN - stable 4. CKD stage 3 - 5. mild hematemesis - no more occurrence since 02/10/18 6. PVD with s/p Rt AKA - 7. DM type 2 - managed by PCP 8. Hyperlipidemia - on Statin Tobacco abuse - smoking cessation education given to the pt and family. MAR reviewed * Echo on 02/11/18 showed EF 55-60%, trace MR, mild TR, and mild TN Review of Systems - Review of Systems Constitutional: reports: no symptoms reported EENTM: reports: no symptoms reported Respiratory: reports: no symptoms reported Cardiac (ROS): reports: no symptoms reported ABD/GI: reports: no symptoms reported : reports: no symptoms reported Musculoskeletal: reports: no symptoms reported
--- NOTE | 2018-02-12 12:34 | PRG ---
DATE OF SERVICE: 02/12/2018 Ms. Bustillos states she is eating well. Her daughter states she is eating well. She is not having an y pain. PHYSICAL EXAMINATION: VITAL SIGNS: Temperature 97, pulse 81, blood pressure 124/60. ABDOMEN: The abdomen is soft, nontender. Bowel sounds are positive. LABORATORY STUDIES: White count 4.5, hemoglobin 8.0, platelet count 133. Sodium 136, potassium 3.4, BUN and creatinine are 10 and 0.9. ASSESSMENT: 1. Postprandial pain with weight loss over several months. She had a borderline gastric emptying sc an with 91% emptying at 4 hours. On Reglan here scheduled and IV Protonix her stomach feels better. 2. She did have an myocardial infarction here, and had a cath with no interventions. 3. Chronic renal insufficiency. With hydration her renal function is doing well. 4. Concern for mesenteric ischemia with history of amputated leg and peripheral vascular stents. RECOMMENDATIONS: While the patient is here I would get a CT mesenteric angiogram to evaluate for pos sible reversible causes of chronic mesenteric ischemia and abdominal vasculature. I have also recomm ended this patient stopped smoking as she will develop more vascular disease with time, at risk for s troke and heart attack as well as mesenteric infarction if she continues to smoke.
[2018-02-12] MEDS: Atorvastatin Calcium 40 MG TAB PO SCH (21:05)
[2018-02-13] MEDS: Lactated Ringer's 1,000 ML IV SCH (02:00)
--- NOTE | 2018-02-13 05:56 | PDOC.FM ---
- Subjective Subjective: No acute events overnight. Patient had mild posprandial pain with lunch yesterday and so did not eat dinner. Asked for nicotine patch. No other concerns voiced. - Objective MAR Reviewed: Yes Vital Signs & Weight: Vital Signs (12 hours) Temp Pulse Resp BP BP Pulse Ox 02/13/18 03:08 99.2 F 87 14 116/56 L 96 02/12/18 23:32 98.6 F 79 18 117/57 L 93 L 02/12/18 20:00 99.1 F 89 20 121/60 96 Weight Weight 61.263 kg I&O: 02/11/18 02/12/18 02/13/18 06:59 06:59 06:59 Intake Total 1377 2726 1660 Output Total 0 200 Balance 1377 2526 1660 Result Diagrams: 02/13/18 05:15 02/13/18 05:15 <Jacqui Louise - Last Filed: 02/13/18 08:43> - Objective Vital Signs & Weight: Vital Signs (12 hours) Temp Pulse Resp BP BP BP Pulse Ox 02/13/18 10:28 84 132/64 02/13/18 07:58 98.0 F 83 16 118/56 L 96 02/13/18 03:08 99.2 F 87 14 116/56 L 96 Weight Weight 64.365 kg I&O: 02/12/18 02/13/18 02/14/18 06:59 06:59 06:59 Intake Total 2726 2993 Output Total 200 700 Balance 2526 2293 Result Diagrams: 02/13/18 05:15 02/13/18 05:15 <Wu Lin - Last Filed: 02/13/18 11:48> Phys Exam - Physical Examination Constitutional: NAD HEENT: moist MMs Respiratory: no wheezing, no rales, clear to auscultation bilateral Cardiovascular: RRR, no significant murmur Gastrointestinal: soft, non-tender, no distention, positive bowel sounds Musculoskeletal: no edema, pulses present Neurological: moves all 4 limbs Psychiatric: normal affect, A&O x 3 Skin: no rash, normal turgor <Jacqui Louise - Last Filed: 02/13/18 08:43> Dx/Plan (1) NSTEMI (non-ST elevated myocardial infarction) Code(s): I21.4 - NON-ST ELEVATION (NSTEMI) MYOCARDIAL INFARCTION Status: Resolved (2) Erosive gastritis Code(s): K29.60 - OTHER GASTRITIS WITHOUT BLEEDING Status: Acute (3) PVD (peripheral vascular disease) Code(s): I73.9 - PERIPHERAL VASCULAR DISEASE, UNSPECIFIED Status: Acute (4) S/P AKA (above knee amputation) Code(s): Z89.619 - ACQUIRED ABSENCE OF UNSPECIFIED LEG ABOVE KNEE Status: Acute (5) HTN (hypertension) Code(s): I10 - ESSENTIAL (PRIMARY) HYPERTENSION Status: Acute (6) DMII (diabetes mellitus, type 2) Status: Acute (7) HLD (hyperlipidemia) Code(s): E78.5 - HYPERLIPIDEMIA, UNSPECIFIED Status: Acute (8) Tobacco abuse Code(s): Z72.0 - TOBACCO USE Status: Acute - Plan Plan: 58 yo F with PMH NSTEMI s/p cardiac cath, suspected mesenteric ischemia Erosive gastritis with concern for mesenteric ischemia -Will plan for CT mesenteric angiogram today due to concern for mesenteric ischemia -Hx of chronic postprandial pain -Continue reglan & IV protonix -Dr. Matute following, will follow recs on this NSTEMI s/p cardiac catheterization with no intervention -s/p cardiac cath & stable -continue with aggressive medical mgmt: DUAP, statin, BB, procardia -echo with -Cards following, will follow any changes in rx regarding this PVD with multiple stent placements -see above Macrocytic anemia 2/2 folic acid deficiency & acute blood loss -prior records show this is chronic -continue folic acid -Currently Hb stable at 8, patient stable -Will trend with daily CBC CKD3 -unchanged from baseline per prior hospital admissions -Continue IVF with daily BMPs -Dr. Cyndie Louise following Allergic conjunctivitis -Improved, continue antihistamine drops HTN -stable -hydralazine PRN & procardia HLD -statin DM2, controlled -continue home meds Tobacco abuse - aware, discussed cessation & possibility of starting on nicotine patch/ chantix dvt ppx: hold gi ppx: protonix dispo: Continue medical mgmt of chronic conditions, monitor H/H, CT mesenteric angiogram today <Jacqui Louise - Last Filed: 02/13/18 08:43> Attending Addendum - Attending Addendum Date/Time: 02/13/18 7825 I personally evaluated the patient and discussed the management with Dr. Louise. I agree with the History, Examination, Assessment and Plan documented above with any addition or exceptions noted below. Patient doing well this morning. H/H stable. She is undergoing CTA this morning per recs from GI. No chest pain and on DAPT without issue. Await further specialists recs after CTA but it appears that she is probably stable for discharge home. <Wu Lin - Last Filed: 02/13/18 11:48>
[2018-02-13 05:57] LABS: #Eosinphils 0.1 thou/uL (0.0-0.7); #Lymphocytes 1.3 thou/uL (1.20-3.40); #Monocytes 0.3 thou/uL (0.11-0.59); #Neutrophils 2.7 thou/uL (1.40-6.50); %Basophils 0.4 % (0.0-1.0); %Eosinophils 1.2 % (0.0-10.0); %Lymphocytes 30.8 % (21.0-51.0); %Monocytes 5.7 % (0.0-10.0); Hemoglobin 8.7 g/dL (12.0-16.0); Mean Corpuscular HGB CONC 31.2 g/dL (32.0-36.0); Mean Corpuscular Hemoglobin 32.8 pg (27.0-31.0); Mean Platelet Volume 8.4 fL (7.4-10.4); Platelet Count 154 thou/uL (130-400); RBC Distribution Width 16.1 % (11.5-14.5); Red Blood Cell (RBC) Count 2.64 mill/uL (4.20-5.40); White Blood Cell (WBC) Count 4.4 thou/uL (4.8-10.8)
[2018-02-13 06:19] LABS: Anion Gap 12 mmol/L (10-20); BUN (Urea Nitrogen) 6 mg/dL (9.8-20.1); Calc. Creatinine Clearance 63 mL/min (70-130); Calcium 8.5 mg/dL (7.8-10.44); Carbon Dioxide 22 mmol/L (22-29); Chloride 108 mmol/L (98-107); Estimated GFR-MDRD 73; Glucose 83 mg/dL (70-105); Potassium 4.2 mmol/L (3.5-5.1); Sodium 138 mmol/L (136-145)
[2018-02-13] MEDS ORDERED: Nicotine 7 MG PATCH TD SCH (09:00)
[2018-02-13 09:03] VITALS: TEMP 98
[2018-02-13] MEDS: Metoclopramide HCl 10 MG TAB PO SCH ×2 (09:20→12:42)
[2018-02-13] MEDS: Lubiprostone 24 MCG CAP PO SCH (09:22)
[2018-02-13] MEDS: Tetrahydrozoline 0.05% OPTH 15 ML BOT EA EYE SCH (09:23)
[2018-02-13] MEDS: Pioglitazone HCl 45 MG TAB PO SCH (09:23)
[2018-02-13] MEDS: Ketotifen Fumarate 0.025% Ophth Soln 5 ml Bottle L EYE SCH (09:25)
[2018-02-13] MEDS: Pantoprazole 40 MG VIAL IVP SCH (09:26)
--- NOTE | 2018-02-13 09:58 | PRG ---
DATE OF SERVICE: 02/13/2018 SUBJECTIVE: Ms. Bustillos is a 58-year-old black female who is followed up by the Renal Service for he r chronic renal failure from presumed hypertensive nephropathy. In addition, the patient has had als o cardiac catheterization with no significant findings. This morning she underwent a CT angio of the abdomen to rule out any possible ischemic etiology. Her creatinine is much improved this morning. No acute events noted last night. The patient denies any chest pain or shortness of breath. PHYSICAL EXAMINATION: VITAL SIGNS: Blood pressure is 118/56, heart rate 83, respiratory rate 16, temperature 98, pulse ox 96%. GENERAL: The patient is awake, alert, sitting comfortable, not in distress. SKIN: Adequate turgor. HEENT: She has pinkish conjunctivae, anicteric sclerae. NECK: No neck mass, no carotid bruits, no JVD. CHEST: No deformities. LUNGS: Clear breath sounds. No wheezing, no crackles. HEART: Normal sinus rhythm. No murmur, no gallops, no rubs. ABDOMEN: Globular, soft, nontender, no masses. Positive for bowel sounds. EXTREMITIES: The patient has no edema - she is actually status post left AKA. MEDICATIONS: 02/13/2018 - Reviewed. LABORATORY: 02/13/2018 - White count 4.4, hemoglobin 8.7. Sodium 138, potassium 4.2, chloride 108, carbon dioxide 22, BUN is 6, creatinine 0.95, calcium is 8.5. ASSESSMENT AND PLAN: 1. Chronic renal failure - initially felt to be from hypertensive nephropathy, but with IV hydration much improved creatinine and it is now noted to be within normal, consider the possibility of a pre viously hemodynamically mediated renal dysfunction for this patient. Continue current management, co ntinue current medications. 2. Postprandial pain. Patient has undergone a CTA of the abdomen and pelvis. Awaiting further resu lts. 3. Chest pain, resolved - last cardiac catheterization showed no significant coronary vessel disease . Cardiology is following. Overall I agree with current management.
[2018-02-13] MEDS: Folic Acid 1 MG TAB PO SCH (10:28)
[2018-02-13] MEDS: Metoprolol Tartrate 50 MG TAB PO SCH (10:28)
[2018-02-13] MEDS: NIFEdipine XL 60 MG TAB PO SCH (10:28)
[2018-02-13] MEDS: Clopidogrel Bisulfate 75 MG TAB PO SCH (10:28)
--- NOTE | 2018-02-13 10:28 | CT ---
CT ANGIOGRAM ABDOMEN AND PELVIS WITH CONTRAST: HISTORY: Abdominal pain. COMPARISON: CT 12/20/2017. FINDINGS: There is mild edema in the lung bases with some peripheral septal thickening. No pericardial effusio n. There is stranding along the right inguinal region, new from the comparison examination. No free intraperitoneal gas or fluid. Evaluation of the solid organs is limited due to the phase of contrast, although the liver, spleen, and pancreas appear unremarkable. No retroperitoneal adenopath y is appreciated. The appendix is visualized and is normal. There are bone infarcts of the intratrochanteric portion of the left femur. Mild facet arthropathy l ower lumbar spine. VESSELS: There is some focal ectasia of the infrarenal abdominal aorta measuring up to 2.7 cm without aneurysm al dilatation. There are bilateral iliac arterial stents. These are patent. Just at the distal end of the left iliac arterial stent, there is high-grade stenosis, greater than 7 5%, of the external iliac artery. There is minimal contrast within the external iliac artery. There is occlusion of what appears to be a common femoral stent and femoral arterial stent with contrast f eeding the external iliac artery via the inferior epigastrics. There is posterior cortical tunneling of the left humeral metadiaphysis, incompletely evaluated on th is examination. There is possible cortical erosion posteriorly on axial image 175. The right biofuels technology development manager al iliac artery is patent. Common femoral artery is patent. The deep femoral artery is patent. The femoral artery is occluded. The celiac trunk is patent. There is greater than 75% narrowing of the superior mesenteric artery du e to calcific and soft plaque for a length of 4 centimeters. The left renal artery is patent as well as the right renal artery. Inferior mesenteric artery is patent. IMPRESSION: 1. New soft tissue stranding on the right groin may be from prior intervention. 2. Extensive vascular disease as described with multifocal bilateral lower extremity stenoses. 3. High-grade narrowing of the superior mesenteric artery greater than 75% due to calcific and soft plaque for 3 cm. 4. Mild pulmonary edema in the lung bases. 5. Cortical tunneling on the posterior margin of the intratrochanteric region of the left femur as w ell as of the proximal metaphysis. This cortical tunneling may be sequelae of hyperparathyroidism wi th focal single cortical break posteriorly. There are also some adjacent bone infarcts. The patient is at risk for developing a stress or pathologic fracture. There is also a possible soft tissue den sity along the cortex posteriorly for which MRI of the proximal left femur with and without contrast would be beneficial. POS: PAZ
[2018-02-13 10:33] VITALS: BP 132/64
== END 2018-02-13 15:41 | disposition home or self-care (01) | DRG 280 ==
LOC: ERS 09:54 → ERHOLD 11:40 → 2NO 14:41
PROVIDERS: ADMIT Family Medicine; ATTEND Family Medicine
PROC: 4A023N7 Measurement of Cardiac Sampling and Pressure, Left Heart, Percutaneous Approach (ICD-10-PCS; principal; 2018-02-11)
PROC: B2111ZZ Fluoroscopy of Multiple Coronary Arteries using Low Osmolar Contrast (ICD-10-PCS; 2018-02-11)
DX: I21.4 Non-ST elevation (NSTEMI) myocardial infarction (principal); K55.059 Acute (reversible) ischemia of intestine, part and extent unspecified; I31.9 Disease of pericardium, unspecified; K92.0 Hematemesis; I25.10 Atherosclerotic heart disease of native coronary artery without angina pectoris; I25.84 Coronary atherosclerosis due to calcified coronary lesion; E11.22 Type 2 diabetes mellitus with diabetic chronic kidney disease; I12.9 Hypertensive chronic kidney disease with stage 1 through stage 4 chronic kidney disease, or unspecified chronic kidney disease; N18.3 Chronic kidney disease, stage 3 (moderate); E78.5 Hyperlipidemia, unspecified; E11.51 Type 2 diabetes mellitus with diabetic peripheral angiopathy without gangrene; F12.90 Cannabis use, unspecified, uncomplicated; F17.210 Nicotine dependence, cigarettes, uncomplicated; K29.70 Gastritis, unspecified, without bleeding; D52.9 Folate deficiency anemia, unspecified; H10.10 Acute atopic conjunctivitis, unspecified eye; E11.43 Type 2 diabetes mellitus with diabetic autonomic (poly)neuropathy; K31.84 Gastroparesis; Z79.82 Long term (current) use of aspirin; Z88.2 Allergy status to sulfonamides; Z89.611 Acquired absence of right leg above knee
CPT/HCPCS: 36252; 36415; 36416; 71045; 74174; 80048; 80053; 82271; 82553; 82607; 82746; 83690; 84484; 85025; 85652; 85730; 86140; 86850; 86900; 86901; 86922; 93005; 93010; 93306; 93458; 93798; 94760; 96374; 96375; C1769; C9113; J1644; J2001; J2405; J7120; Q0162

== ENCOUNTER 2018-05-06 09:34 | Inpatient (IN) | payer MEDICARE, MEDICAID ==
[2018-05-06 10:13] LABS: #Eosinphils 0.1 thou/uL (0.0-0.7); #Lymphocytes 1.4 thou/uL (1.20-3.40); #Monocytes 0.3 thou/uL (0.11-0.59); #Neutrophils 2.8 thou/uL (1.40-6.50); %Basophils 0.2 % (0.0-1.0); %Eosinophils 1.2 % (0.0-10.0); %Lymphocytes 30.4 % (21.0-51.0); %Neutrophils 61.3 % (42.0-75.0); Hemoglobin 8.6 g/dL (12.0-16.0); Mean Corpuscular HGB CONC 31.3 g/dL (32.0-36.0); Mean Corpuscular Hemoglobin 32.7 pg (27.0-31.0); Mean Platelet Volume 7.4 fL (7.4-10.4); Platelet Count 318 thou/uL (130-400); RBC Distribution Width 16.4 % (11.5-14.5); Red Blood Cell (RBC) Count 2.61 mill/uL (4.20-5.40); White Blood Cell (WBC) Count 4.6 thou/uL (4.8-10.8)
[2018-05-06 10:38] LABS: ALT (SGPT) 9 U/L (8-55); AST (SGOT) 13 U/L (5-34); Albumin 3.3 g/dL (3.5-5.0); Alkaline Phosphatase 100 U/L (40-150); Anion Gap 18 mmol/L (10-20); BUN (Urea Nitrogen) 15 mg/dL (9.8-20.1); Bilirubin, Total 0.3 mg/dL (0.2-1.2); CK (CPK) 124 U/L (29-168); Calc. Creatinine Clearance 0 mL/min (70-130); Calcium 8.1 mg/dL (7.8-10.44); Carbon Dioxide 17 mmol/L (22-29); Chloride 107 mmol/L (98-107); Estimated GFR-MDRD 63; Globulin 3.4 g/dL (2.4-3.5); Glucose 83 mg/dL (70-105); Lipase 8 U/L (8-78); Potassium 3.2 mmol/L (3.5-5.1); Protein, Total 6.7 g/dL (6.0-8.3); Sodium 139 mmol/L (136-145)
--- NOTE | 2018-05-06 10:55 | RAD ---
PORTABLE CHEST: Date: 05/06/18 PROVIDED CLINICAL HISTORY: Chest pain. FINDINGS: Comparison with 02/10/18. The cardiac silhouette appears enlarged. Vascular calcification involves the aortic arch. Prominence of the pulmonary vasculature and pulmonary interstitium are noted. There are bilateral pleural effusi ons with bibasilar subsegmental atelectasis and/or infiltrate. IMPRESSION: Findings compatible with congestive failure with bilateral pleural effusions. Bibasilar subsegmental atelectasis or infiltrate. Follow-up is recommended. POS: [facility]
[2018-05-06] MEDS ORDERED: Furosemide 20 MG/2 ML VIAL ONE (12:13)
[2018-05-06] MEDS ORDERED: Potassium Chloride 20 MEQ TAB ONE (12:13)
--- NOTE | 2018-05-06 12:14 | ULT ---
RIGHT LOWER EXTREMITY VENOUS DOPPLER: HISTORY: Pain and edema. COMPARISON: None. TECHNIQUE: Real-time, rapp scale, color Doppler, and spectral analysis of the right lower extremity venous syste m was performed. The common femoral, femoral, proximal portion of greater saphenous and deep femoral veins as well as the popliteal and posterior tibial veins were interrogated. Normal flow, augmentation, and compression. Moderate edema. IMPRESSION: No deep vein thrombosis. POS: ADRIANA
--- NOTE | 2018-05-06 12:34 | PDOC.FPRHP ---
- History of Present Illness Chief Complaint: SOB, Rt leg swelling History of Present Illness: 58 yo F vasculopath with HTN, DM2, PVD, HLD, and L AKCamila with recent history of KS presents for Rt leg and left flank swelling x2 weeks, increased SOB for about 1.5 weeks. She states that she has not been able to sleep laying flat, but has been sleeping in a recliner. She reports exercise intolerance, orthopnea , and paroxysmal nocturnal dyspnea. She has also had a dry cough, that has not improved with OTC cough medicine. She does report subjective fever, rhinorrhea, sore throat. She has a recent history of hospitalization Jan 2018 for high grade narrowing of SMA (>75%), which was stented in February. Patient reports she had an KS in Jan/Feb here, as well as at [facility]. She states she had cardiac caths each time with no stents placed. She reports she has never been diagnosed with CHF, but both her parents had CHF. In ED, EKG wnl, CXR c/w CHF. Trop negx1, RLE US showed no DVT. BNP 600s. Patient hypoxic in upper 80s, improved to 96% on 2L BNC. Lasix initiated, and potassium replaced. - Allergies/Adverse Reactions Allergies Allergy/AdvReac Type Severity Reaction Status Date / Time sulfamethoxazole Allergy Verified 03/08/18 15:24 [From Bactrim] trimethoprim [From Bactrim] Allergy Verified 03/08/18 15:24 - Home Medications Medication Instructions Recorded Confirmed Type Pioglitazone HCl [Actos] 45 mg PO QAM 02/10/18 05/06/18 History Atorvastatin Calcium [Lipitor] 80 mg PO HS 30 Days tab 02/13/18 05/06/18 Rx Metoprolol Tartrate [Lopressor] 50 mg PO BID 30 Days tab 02/13/18 05/06/18 Rx Aspirin [Ecotrin Low Strength] 81 mg PO QAM 03/08/18 05/06/18 History Clopidogrel Bisulfate [Plavix] 75 mg PO QPM 03/08/18 05/06/18 History NIFEdipine [Procardia XL] 60 mg PO QAM 03/08/18 05/06/18 History - History PMHx: DM2, HTN, HLD, PVD, H pylori s/p treatment, CKD3, anemia 2/2 folic acid deficiency, allergic conjunctivitis, tobacco abuse, 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 PSHx: Left AKA, vascular stenting carotid, Hysterectomy, , Feb 2018 stenting SMA, recent cath March 2018 @ [facility] without stenting, right nipple removed FHx: both parents had CHF, no thyroid disease, sister with lupus Social: >30 pack year smoking history, quit 2.5 weeks ago cold turkey; hx of drug and alcohol abuse, current marijuana abuse, no IVDA - Review of Systems General: reports: fever/chills (subjective), weight/appetite/sleep changes ( weight increased appropriately since SMA stenting). denies: night sweats, fatigue Eyes: reports: eye pain (light sensitivity, now resolved). denies: vision changes ENT: reports: nasal congestion, rhinorrhea Respiratory: reports: cough, congestion, shortness of breath, exercise intolerance, other (PND) Cardiovascular: reports: edema, paroxysmal nocturnal dyspnea, orthopnea. denies : chest pain, palpitation Gastrointestinal: reports: constipation. denies: nausea, vomiting, diarrhea, abdominal pain, GI bleeding, other (denied melena or hematochezia) Genitourinary: denies: dysuria, polyuria Skin: denies: rashes, lesions Musculoskeletal: reports: swelling. denies: pain Neurological: denies: numbness, weakness Psychological: denies: anxiety, depression - Vital signs BP: [132/67] HR: [64] RR: [20] Tmax: [98.4] Pox: [96]% on [2L BNC] Wt: [63.5 kg] - Physical Exam Constitutional: NAD, awake, alert and oriented HEENT: normocephalic and atraumatic, PERRLA, EOMI, conjunctiva clear, MMM, oropharynx clear Neck: supple, other (+bilat cervical lymphadenopathy and tenderness) Heart: RRR, normal S1/S2, pulses present, other (1/6 systolic murmur, 1+ pitting edema RLE, no pitting edema left stump) Lungs: no respiratory distress, good air movement, no wheezing, no retractions, other (crackles inspiratory and expiratory bilateral bases) Abdomen: soft, non-tender, bowel sounds present, no masses/distention Musculoskeletal: normal structure (except for Left AKA), normal tone, ROM grossly normal Neurological: no focal deficit, CN II-XII intact Skin: no rash/lesions, good turgor, capillary refill <2 seconds, no jaundice Heme/Lymphatic: no unusual bruising or bleeding, no purpura Psychiatric: normal mood and affect, good judgment and insight, intact recent and remote memory FMR H&P: Results - Labs Result Diagrams: 05/07/18 04:39 05/07/18 04:39 Lab results: WBC 4.6 thou/uL (4.8-10.8) L 05/06/18 10:03 Hgb 8.6 g/dL (12.0-16.0) L 05/06/18 10:03 Hct 27.3 % (36.0-47.0) L 05/06/18 10:03 MCV 104.0 fL (78.0-98.0) H 05/06/18 10:03 Plt Count 318 thou/uL (130-400) 05/06/18 10:03 Neutrophils % 61.3 % (42.0-75.0) 05/06/18 10:03 Sodium 139 mmol/L (136-145) 05/06/18 10:03 Potassium 3.2 mmol/L (3.5-5.1) L 05/06/18 10:03 Chloride 107 mmol/L (98-107) 05/06/18 10:03 Carbon Dioxide 17 mmol/L (22-29) L 05/06/18 10:03 BUN 15 mg/dL (9.8-20.1) 05/06/18 10:03 Creatinine 1.09 mg/dL (0.6-1.1) 05/06/18 10:03 Glucose 83 mg/dL (70-105) 05/06/18 10:03 Calcium 8.1 mg/dL (7.8-10.44) 05/06/18 10:03 Total Bilirubin 0.3 mg/dL (0.2-1.2) 05/06/18 10:03 AST 13 U/L (5-34) 05/06/18 10:03 ALT 9 U/L (8-55) 05/06/18 10:03 Alkaline Phosphatase 100 U/L (40-150) 05/06/18 10:03 Creatine Kinase 124 U/L (29-168) 05/06/18 10:03 B-Natriuretic Peptide 662.5 pg/mL (0-100) H 05/06/18 10:04 Serum Total Protein 6.7 g/dL (6.0-8.3) 05/06/18 10:03 Albumin 3.3 g/dL (3.5-5.0) L 05/06/18 10:03 Lipase 8 U/L (8-78) 05/06/18 10:03 - EKG Interpretation EKG: NSR - Radiology Interpretation Chest x-ray Status: image reviewed by me, report reviewed by me Additional comment: cardiomegaly and bilateral pleural effusions, consistent with CHF US - venous Status: report reviewed by me Additional comment: No DVT present in RLE FMR H&P: A/P - Problem List (1) Acute respiratory failure with hypoxia Current Visit: Yes Status: Acute Code(s): J96.01 - ACUTE RESPIRATORY FAILURE WITH HYPOXIA (2) CHF exacerbation Current Visit: Yes Status: Acute Code(s): I50.9 - HEART FAILURE, UNSPECIFIED (3) DMII (diabetes mellitus, type 2) Current Visit: No Status: Chronic (4) HLD (hyperlipidemia) Current Visit: No Status: Chronic Code(s): E78.5 - HYPERLIPIDEMIA, UNSPECIFIED (5) HTN (hypertension) Current Visit: No Status: Chronic Code(s): I10 - ESSENTIAL (PRIMARY) HYPERTENSION (6) PVD (peripheral vascular disease) Current Visit: No Status: Chronic Code(s): I73.9 - PERIPHERAL VASCULAR DISEASE, UNSPECIFIED (7) S/P AKA (above knee amputation) Current Visit: No Status: Chronic Code(s): Z89.619 - ACQUIRED ABSENCE OF UNSPECIFIED LEG ABOVE KNEE (8) Tobacco abuse Current Visit: No Status: Chronic Code(s): Z72.0 - TOBACCO USE (9) Hypokalemia Current Visit: Yes Status: Acute Code(s): E87.6 - HYPOKALEMIA - Plan Acute Hypoxic Respiratory Failure 2/2 volume overload - CXR showed interstitial infiltrate, bilat pleural effusions, c/w CHF - Lasix initiated - 20 mg IV BID, as patient lasix naive - fluid restrict to 1800 ml/day - continue to wean O2 as tolerated New Onset CHF Exacerbation - Patient hypoxic in upper 80s on presentation, improved to 96% on 2L BNC; SOB, CARPENTER, orthopneic, PND, RLE swelling; bilateral lower lobe fine crackles on physical exam - Recent history of MIx2 Feb 2018 and Mar 2018 with recent cath, no stents placed - Recent EF 55-60% (01/2018), however in setting of recent KS repeat Echo - EKG NSR; CXR c/w CHF: bilat pleural effusions, cardiomegaly; BNP 600s. - Trop negx1, continue to trend - RLE US showed no DVT - TSH pending - Continue ASA and statin - Consult heart failure clinic - Strict I/Os, daily weights Hypokalemia - K 3.2 - potassium will be monitored and replaced as needed - AM BMP Macrocytic Anemia -Hgb 8.6, MCV >100 -Hx of anemia 2/2 to folic acid deficiency - Recheck B12 and folate, as patient does not seem to be on supplementation currently -Multivitamin -continue to monitor DM2 -continue pioglitazone -mild SSI with accuchecks -CC diet -A1C pending HTN -continue home meds HLD -continue ASA and statin PVD CKD3 -aware, BUN/Cr at baseline Tobacco abuse -Quit cold turkey 2.5 wks ago ->30 PY history Hx of H pylori, s/p treatment Hx SMA stenosis s/p stenting DVT Ppx: lovenox GI ppx: Ranitidine Dispo: Admit to tele inpatient, expect LOS >2midnights PCP: Dr. Jourdan Liao, [facility] Code status: full code FMR H&P: Upper Level - Pertinent history 58 y/o F with DM2, CAD, CHF, CKD presents for SOB, worsening leg edema for 1-2 weeks. States SOB is worse with movement and cannot move from bed to chair without symptoms. Improved with rest. Went to PCPs office and was sent to ED where DVT was ruled out via US LE. In ED, she was placed on 2L O2 after desaturations measured as low as 86%. She was given 20mg Lasix and potassium supplement. Admits to orthopnea, flank L edema. She denies chest pain, palpitations, dizziness, vision changes. alfonso Soliman AKA. - Pertinent findings PE: GEN: NAD, calmly talking and appears well. CARDIO: RRR, no MRG LUNGS: lungs CTAB, no wheezes MSK: 2+ pitting edema Imaging and labs as below - Plan Date/Time: 05/06/18 1234 I, Agustin Mock, have evaluated this patient and agree with findings/plan as outlined by industrial engineering intern resident. Pertinent changes/additions are listed here. 1. Acute Hypoxic Respiratory Failure 2/2 volume overload Interstitial infiltrates visualized on CXR as well as b/l pleural effusions. Pt is on 2L O2 at 94%. Will continue O2 and wean as tolerated. 2. CHF Exacerbation EF 55-60% in 01/2018, but hx/o KS x2 in February 2018. Will recheck echocardiogram, continue diuresis, monitor daily weights, I/Os, and symptoms. 3. CKD3 Cr and GFR at baseline 4. Hypokalemia Potassium given in ED, recheck in AM 5. Macrocytic Anemia Check Folate/B12 6. HTN: controlled 7. HLD: continue home meds Addendum - Attending - Attending Attestation Date/Time: 05/07/18 8817 I personally evaluated the patient and discussed the management with Dr. Almaz Byrne on 05/06/2018 I agree with the History, Examination, Assessment and Plan documented above with any addition or exceptions noted below- 58 yo female with h/o DM, HTN, HLD , and PVD presented c/o 2 week h/o progressive SOB. (+)orthopnea. (+) cough with minimal clear sputum. Denies any fever, chest pain. (+) pedal edema. PMH/ PSH/Meds/SH reviewed and agree with resident's documentation. BP 119/53 P95 RR20 T98.2 936% on 2L NC. Exam repeated by me and agree with resident's findings. Labs: H/H=8.6/27.3, Bm=999, K=3.8, Pm=177, CO2=24, BUN/Cr=17/1.08, Gluc=85, TSH= 1.4595, JGA=267.5, trop I= neg x2, CXR- increased vascular markings. EKG- NSR, no ST changes. A/P: 1) New onset CHF- admit to telemetry. Lasix for diuresis. Will order echo to evaluate EF. 2) FM- continue home meds; monitor BG. 3) HTN- continue home meds and adjust as needed.
[2018-05-06] MEDS ORDERED: Acetaminophen 325 MG TAB PO PRN (13:31)
[2018-05-06] MEDS ORDERED: Enoxaparin Sodium 40 MG/0.4 ML SYRINGE SC SCH (14:00)
[2018-05-06] MEDS ORDERED: Dextrose 50% Abboject 50 ML SYRINGE SLOW IVP PRN (14:00)
[2018-05-06] MEDS ORDERED: HumaLOG 300 UNITS/3 ML VIAL SC PRN (14:00)
[2018-05-06] MEDS ORDERED: Furosemide 40 MG/4 ML VIAL SLOW IVP SCH (14:00)
[2018-05-06] MEDS ORDERED: Dextrose 5% in Water 1,000 ML IV PRN (14:00)
[2018-05-06 14:04] LABS: Troponin I Less than 0.010 ng/mL (< 0.028)
[2018-05-06 15:53] LABS: Hemoglobin A1c 5.1 % (4.0-6.0)
[2018-05-06 16:01] VITALS: BMI 22.4
[2018-05-06] MEDS ORDERED: Magnesium 2 GM/50 ML 2 GM in Premix Bag 1 BAG IVPB SCH (16:45)
[2018-05-06 17:32] LABS: Troponin I Less than 0.010 ng/mL (< 0.028)
[2018-05-06] MEDS: Potassium Chloride 20 MEQ TAB PO SCH (17:45)
[2018-05-06] MEDS: Atorvastatin Calcium 40 MG TAB PO SCH (20:47)
[2018-05-06] MEDS: Clopidogrel Bisulfate 75 MG TAB PO SCH (20:47)
[2018-05-06] MEDS: Famotidine 20 MG TAB PO SCH (20:48)
[2018-05-06] MEDS: Metoprolol Tartrate 50 MG TAB PO SCH (20:48)
[2018-05-07 05:10] LABS: #Eosinphils 0.1 thou/uL (0.0-0.7); #Lymphocytes 1.4 thou/uL (1.20-3.40); #Monocytes 0.4 thou/uL (0.11-0.59); #Neutrophils 2.9 thou/uL (1.40-6.50); %Basophils 0.7 % (0.0-1.0); %Eosinophils 1.3 % (0.0-10.0); %Lymphocytes 28.8 % (21.0-51.0); %Monocytes 7.7 % (0.0-10.0); %Neutrophils 61.5 % (42.0-75.0); Hemoglobin 7.4 g/dL (12.0-16.0); Mean Corpuscular Hemoglobin 33.1 pg (27.0-31.0); Mean Platelet Volume 7.2 fL (7.4-10.4); Platelet Count 289 thou/uL (130-400); RBC Distribution Width 16.3 % (11.5-14.5); Red Blood Cell (RBC) Count 2.24 mill/uL (4.20-5.40); White Blood Cell (WBC) Count 4.7 thou/uL (4.8-10.8)
[2018-05-07 05:25] LABS: Anion Gap 12 mmol/L (10-20); BUN (Urea Nitrogen) 17 mg/dL (9.8-20.1); Calc. Creatinine Clearance 63 mL/min (70-130); Calcium 8.1 mg/dL (7.8-10.44); Carbon Dioxide 24 mmol/L (22-29); Chloride 107 mmol/L (98-107); Estimated GFR-MDRD 63; Glucose 85 mg/dL (70-105); Potassium 3.8 mmol/L (3.5-5.1); Sodium 139 mmol/L (136-145)
[2018-05-07] MEDS ORDERED: Furosemide 20 MG/2 ML VIAL SLOW IVP SCH (06:00)
--- NOTE | 2018-05-07 06:16 | PDOC.FM ---
- Subjective Subjective: Difficulty breathing overnight, could not sleep laying down because she felt SOB. Reports swelling in her leg and left flank have improved. Water intake was not limited yesterday as patient not aware, but patient has been made aware today and will limit O2 intake. - Objective Vital Signs & Weight: Vital Signs (12 hours) Temp Pulse Resp BP BP Pulse Ox 05/07/18 04:00 98.5 F 78 20 131/63 93 L 05/06/18 19:30 98.1 F 89 18 111/61 93 L Weight Weight 68.946 kg Result Diagrams: 05/07/18 04:39 05/07/18 04:39 Phys Exam - Physical Examination Constitutional: NAD HEENT: moist MMs, sclera anicteric, oral pharynx no lesions insp and exp crackles bilateral bases, upper lobes BCTA Cardiovascular: RRR, no significant murmur Gastrointestinal: soft, non-tender, positive bowel sounds Musculoskeletal: pulses present, edema present (1+ pitting edema present RLE, improved slightly from yesterday) Neurological: moves all 4 limbs Dx/Plan (1) Acute respiratory failure with hypoxia Code(s): J96.01 - ACUTE RESPIRATORY FAILURE WITH HYPOXIA Status: Acute (2) CHF exacerbation Code(s): I50.9 - HEART FAILURE, UNSPECIFIED Status: Acute (3) DMII (diabetes mellitus, type 2) Status: Chronic (4) HLD (hyperlipidemia) Code(s): E78.5 - HYPERLIPIDEMIA, UNSPECIFIED Status: Chronic (5) HTN (hypertension) Code(s): I10 - ESSENTIAL (PRIMARY) HYPERTENSION Status: Chronic (6) PVD (peripheral vascular disease) Code(s): I73.9 - PERIPHERAL VASCULAR DISEASE, UNSPECIFIED Status: Chronic (7) S/P AKA (above knee amputation) Code(s): Z89.619 - ACQUIRED ABSENCE OF UNSPECIFIED LEG ABOVE KNEE Status: Chronic (8) Tobacco abuse Code(s): Z72.0 - TOBACCO USE Status: Chronic (9) Hypokalemia Code(s): E87.6 - HYPOKALEMIA Status: Acute - Plan Plan: Acute Hypoxic Respiratory Failure 2/2 volume overload - CXR showed interstitial infiltrate, bilat pleural effusions, c/w CHF - Minimal improvement in fluid status from yesterday - Lasix increased from 20 yesterday to 40 mg IV BID - fluid restrict to 1800 ml/day - Strict I/Os - continue to wean O2 as tolerated - output 700 ml yesterday + 1 unmeasured per nursing; intake ~ 1000 ml yesterday New Onset CHF Exacerbation - Patient hypoxic in upper 80s on presentation, improved to 96% on 2L BNC; SOB, CARPENTER, orthopneic, PND, RLE swelling; bilateral lower lobe fine crackles on physical exam, no tachycardia - Recent history of MIx2 Feb 2018 and Mar 2018 with recent cath, no stents placed - Recent EF 55-60% (01/2018), however in setting of recent LA repeat Echo - EKG NSR; CXR c/w CHF: bilat pleural effusions, cardiomegaly; BNP 600s. - Trop negx3 - RLE US showed no DVT - TSH wnl - Continue ASA and statin - Consult heart failure clinic - Strict I/Os, daily weights Hypokalemia - K 3.2 -> 3.8 - potassium will be monitored and replaced as needed - AM BMP Macrocytic Anemia 2/2 folate deficiency - Hgb 8.6 -> 7.4, MCV >100 - Hx of anemia 2/2 to folic acid deficiency - Recheck B12 wnl, folate LOW - Folate/B12 daily vitamin DM2 -continue pioglitazone -mild SSI with accuchecks -CC diet -A1C 5.1 HTN -continue home meds HLD -continue ASA and statin PVD CKD3 -aware, BUN/Cr at baseline Tobacco abuse -Quit cold turkey 2.5 wks ago ->30 PY history Hx of H pylori, s/p treatment Hx SMA stenosis s/p stenting DVT Ppx: lovenox GI ppx: Ranitidine Dispo: Admit to tele inpatient, expect LOS >2midnights PCP: Dr. Jourdan Liao, [facility] Code status: full code Addendum - Attending - Attending Attestation Date/Time: 05/07/18 2256 I personally evaluated the patient and discussed the management with Dr. Kumar I agree with the History, Examination, Assessment and Plan documented above with any addition or exceptions noted below. Patient with clinical improvement continue diuresis convert po rx. Recommend d/c pioglitazone in setting of CHF.
[2018-05-07] MEDS ORDERED: Furosemide 40 MG TAB PO SCH (09:00)
[2018-05-07] MEDS ORDERED: Pioglitazone HCl 45 MG TAB PO SCH (09:00)
[2018-05-07] MEDS ORDERED: Multivitamin W/ Minerals 1 TAB PO SCH (09:00)
[2018-05-07] MEDS: Folic Acid/Vit B Comp W-C PO SCH (09:09)
[2018-05-07] MEDS: Aspirin 81 mg Enteric Coated Tablet PO SCH (09:09)
[2018-05-07] MEDS: NIFEdipine XL 60 MG TAB PO SCH (09:10)
[2018-05-07] MEDS: Metoprolol Tartrate 50 MG TAB PO SCH ×2 (09:11→20:01)
[2018-05-07] MEDS: Famotidine 20 MG TAB PO SCH ×2 (09:11→20:01)
[2018-05-07] MEDS: Potassium Chloride 20 MEQ TAB PO SCH ×2 (09:11→16:23)
[2018-05-07] MEDS: Enoxaparin Sodium 40 MG/0.4 ML SYRINGE SC SCH (09:12)
[2018-05-07] MEDS ORDERED: Furosemide 40 MG/4 ML VIAL SLOW IVP SCH (14:00)
[2018-05-07] MEDS ORDERED: Furosemide 80 MG TAB PO SCH (14:00)
[2018-05-07] MEDS: Clopidogrel Bisulfate 75 MG TAB PO SCH (20:01)
[2018-05-07] MEDS: Atorvastatin Calcium 40 MG TAB PO SCH (20:01)
[2018-05-08 04:49] LABS: #Eosinphils 0.1 thou/uL (0.0-0.7); #Lymphocytes 1.5 thou/uL (1.20-3.40); #Monocytes 0.4 thou/uL (0.11-0.59); #Neutrophils 3.1 thou/uL (1.40-6.50); %Basophils 0.5 % (0.0-1.0); %Eosinophils 1.5 % (0.0-10.0); %Lymphocytes 29.4 % (21.0-51.0); %Monocytes 7.5 % (0.0-10.0); %Neutrophils 61.2 % (42.0-75.0); Mean Corpuscular HGB CONC 31.9 g/dL (32.0-36.0); Mean Corpuscular Hemoglobin 32.9 pg (27.0-31.0); Mean Platelet Volume 7.3 fL (7.4-10.4); Platelet Count 269 thou/uL (130-400); RBC Distribution Width 16.2 % (11.5-14.5); Red Blood Cell (RBC) Count 2.12 mill/uL (4.20-5.40); White Blood Cell (WBC) Count 5.1 thou/uL (4.8-10.8)
[2018-05-08 05:10] LABS: Anion Gap 12 mmol/L (10-20); BUN (Urea Nitrogen) 17 mg/dL (9.8-20.1); Calc. Creatinine Clearance 57 mL/min (70-130); Calcium 8.4 mg/dL (7.8-10.44); Carbon Dioxide 23 mmol/L (22-29); Chloride 108 mmol/L (98-107); Estimated GFR-MDRD 58; Glucose 83 mg/dL (70-105); Potassium 3.6 mmol/L (3.5-5.1); Sodium 139 mmol/L (136-145)
--- NOTE | 2018-05-08 06:34 | PDOC.FM ---
- Subjective Subjective: Pt reports she is feeling well this morning. States she was able to lie flat to sleep, however she awoke out of breath. Her swelling is improved. No complaints. - Objective Vital Signs & Weight: Vital Signs (12 hours) Temp Pulse Resp BP BP Pulse Ox 05/08/18 04:00 97.7 F 75 14 124/59 L 92 L 05/07/18 20:00 98.0 F 86 18 97/71 92 L Weight Weight 67.699 kg I&O: 05/06/18 05/07/18 05/08/18 06:59 06:59 06:59 Intake Total 1000 1320 Output Total 700 1400 Balance 300 -80 Result Diagrams: 05/08/18 09:26 05/08/18 04:18 Phys Exam - Physical Examination Constitutional: NAD HEENT: moist MMs Respiratory: no wheezing, clear to auscultation bilateral Cardiovascular: RRR, no significant murmur Gastrointestinal: soft, non-tender, positive bowel sounds Musculoskeletal: no edema, pulses present trace pitting edema Neurological: moves all 4 limbs Psychiatric: normal affect, A&O x 3 Skin: no rash, normal turgor Dx/Plan (1) Acute respiratory failure with hypoxia Code(s): J96.01 - ACUTE RESPIRATORY FAILURE WITH HYPOXIA Status: Acute (2) CHF exacerbation Code(s): I50.9 - HEART FAILURE, UNSPECIFIED Status: Acute (3) DMII (diabetes mellitus, type 2) Status: Chronic (4) HLD (hyperlipidemia) Code(s): E78.5 - HYPERLIPIDEMIA, UNSPECIFIED Status: Chronic (5) HTN (hypertension) Code(s): I10 - ESSENTIAL (PRIMARY) HYPERTENSION Status: Chronic (6) PVD (peripheral vascular disease) Code(s): I73.9 - PERIPHERAL VASCULAR DISEASE, UNSPECIFIED Status: Chronic (7) S/P AKA (above knee amputation) Code(s): Z89.619 - ACQUIRED ABSENCE OF UNSPECIFIED LEG ABOVE KNEE Status: Chronic (8) Tobacco abuse Code(s): Z72.0 - TOBACCO USE Status: Chronic (9) Hypokalemia Code(s): E87.6 - HYPOKALEMIA Status: Acute - Plan Plan: Macrocytic Anemia 2/2 folate deficiency and Concern for GI bleed - Hgb 8.6 -> 7.4 -> 7.0, MCV >100 - Hx of anemia 2/2 to folic acid deficiency - B12 wnl, folate LOW, replaced with daily vitamin (folate and B12) and SC folic acid - FOBT to check for GI bleed, patient reports dark stools and has history of H pylori s/p treatment - Retic shows appropriate elevation - LDH, Haptoglobin pending - Symptomatic with SOB, give 1 unit PRBCs and ofelia with Lasix - MMA pending and Homocysteine elevated - Peripheral blood smear pending Acute Hypoxic Respiratory Failure 2/2 volume overload, improving - CXR showed interstitial infiltrate, bilat pleural effusions, c/w CHF - Minimal improvement in fluid status from yesterday - Lasix 40 mg IV BID, as only -80 yesterday - fluid restrict to 1800 ml/day - Strict I/Os - 92% on 1.5 L BNC, continue to wean O2 as tolerated HFpHF , new onset CHF Exacerbation, improving - Patient hypoxic in upper 80s on presentation, improved to 96% on 2L BNC; SOB, CARPENTER, orthopneic, PND, RLE swelling; bilateral lower lobe fine crackles on physical exam, no tachycardia - Recent history of MIx2 Feb 2018 and Mar 2018 with recent cath, no stents placed -01/2018 EF 55-60% - Repeat Echo 05/07/18: EF 60-65%, diastolic dysfunction with mild LA dilation - EKG NSR; CXR c/w CHF: bilat pleural effusions, cardiomegaly; BNP 600s. - Trop negx3 - RLE US showed no DVT - TSH wnl - Continue ASA and statin - Consulted heart failure clinic - Strict I/Os, daily weights Hypokalemia, resolved - K 3.2 -> 3.8 -> 3.6 - potassium will be monitored and replaced as needed - AM BMP DM2, controlled -continue pioglitazone -mild SSI with accuchecks -CC diet -A1C 5.1 HTN -continue home meds HLD -continue ASA and statin PVD CKD3 -aware, BUN/Cr at baseline Tobacco abuse -Quit cold turkey 2.5 wks ago ->30 PY history Hx of H pylori, s/p treatment Hx SMA stenosis s/p stenting DVT Ppx: lovenox GI ppx: Ranitidine Dispo: tele inpatient, expect LOS >2midnights PCP: Dr. L Yanni, [facility] Code status: full code Addendum - Attending - Attending Attestation Date/Time: 05/08/18 1681 I personally evaluated the patient and discussed the management with Dr. Jourdan Byrne I agree with the History, Examination, Assessment and Plan documented above with any addition or exceptions noted below. Given symptoms of dyspnea would rec transfusion prbc followed by IV lasix additional dose blood work obtained for macrocytic anemia work up r/o occult GI blood loss as well.
[2018-05-08] MEDS: Potassium Chloride 20 MEQ TAB PO SCH ×2 (07:46→16:19)
[2018-05-08] MEDS ORDERED: Furosemide 100 MG/10 ML VIAL SLOW IVP SCH (08:45)
[2018-05-08] MEDS: NIFEdipine XL 60 MG TAB PO SCH (08:49)
[2018-05-08] MEDS: Metoprolol Tartrate 50 MG TAB PO SCH ×2 (08:49→20:38)
[2018-05-08] MEDS: Folic Acid/Vit B Comp W-C PO SCH (08:49)
[2018-05-08] MEDS: Famotidine 20 MG TAB PO SCH ×2 (08:49→20:38)
[2018-05-08] MEDS: Aspirin 81 mg Enteric Coated Tablet PO SCH (08:50)
[2018-05-08] MEDS: Enoxaparin Sodium 40 MG/0.4 ML SYRINGE SC SCH (08:50)
[2018-05-08] MEDS ORDERED: Furosemide 20 MG TAB PO SCH (09:00)
[2018-05-08 10:03] LABS: Hemoglobin 7.4 g/dL (12.0-16.0); Mean Corpuscular Hemoglobin 33.1 pg (27.0-31.0); Mean Platelet Volume 7.3 fL (7.4-10.4); Platelet Count 311 thou/uL (130-400); RBC Distribution Width 16.4 % (11.5-14.5); Red Blood Cell (RBC) Count 2.25 mill/uL (4.20-5.40); Reticulocyte Count 4.5 % (0.5-1.5)
[2018-05-08 11:01] LABS: MDiff Complete? YES
[2018-05-08 11:27] LABS: Band 3 % (5-11); Eosinophils 2 % (0-10); Lymphocytes 28 % (21-51); Monocytes 4 % (0-10); Neutrophil 63 % (42-75)
[2018-05-08 11:28] LABS: Macrocytosis SLIGHT = 6-15 cells (100X) (0-5/hpf); Platelet Morphology Comment Appears Adequate; Polychromasia MODERATE = 3-4 cells (100X) (0-2/hpf)
[2018-05-08] MEDS ORDERED: Furosemide 40 MG/4 ML VIAL IVP SCH (13:15)
[2018-05-08] MEDS: Furosemide 40 MG/4 ML VIAL SLOW IVP SCH (13:52)
[2018-05-08 19:57] LABS: #Eosinphils 0.1 thou/uL (0.0-0.7); #Lymphocytes 1.4 thou/uL (1.20-3.40); #Monocytes 0.4 thou/uL (0.11-0.59); #Neutrophils 3.4 thou/uL (1.40-6.50); %Basophils 0.4 % (0.0-1.0); %Eosinophils 1.9 % (0.0-10.0); %Lymphocytes 25.7 % (21.0-51.0); %Monocytes 7.7 % (0.0-10.0); %Neutrophils 64.3 % (42.0-75.0); Hemoglobin 8.4 g/dL (12.0-16.0); Mean Corpuscular HGB CONC 31.1 g/dL (32.0-36.0); Mean Corpuscular Hemoglobin 30.9 pg (27.0-31.0); Mean Corpuscular Volume 99.5 fL (78.0-98.0); Mean Platelet Volume 6.9 fL (7.4-10.4); Platelet Count 292 thou/uL (130-400); RBC Distribution Width 17.3 % (11.5-14.5); Red Blood Cell (RBC) Count 2.71 mill/uL (4.20-5.40); White Blood Cell (WBC) Count 5.3 thou/uL (4.8-10.8)
[2018-05-08] MEDS: Atorvastatin Calcium 40 MG TAB PO SCH (20:38)
[2018-05-08] MEDS: Clopidogrel Bisulfate 75 MG TAB PO SCH (20:38)
[2018-05-09] MEDS: Furosemide 40 MG/4 ML VIAL SLOW IVP SCH (05:18)
--- NOTE | 2018-05-09 05:28 | PDOC.FM ---
- Subjective Subjective: Patient reports she is able to lie down on her back and her O2 stays elevated, reports when she lies on her right side, she begins coughing more. Otherwise feeling well this AM. - Objective Vital Signs & Weight: Vital Signs (12 hours) Temp Pulse Pulse Resp BP BP Pulse Ox 05/09/18 03:35 98.7 F 84 18 110/56 L 96 05/08/18 22:30 92 L 05/08/18 20:35 97.9 F 87 18 121/55 L 96 05/08/18 18:46 98.9 F 87 18 120/58 L Weight Weight 67.699 kg I&O: 05/07/18 05/08/18 05/09/18 06:59 06:59 06:59 Intake Total 1000 1320 1310 Output Total 700 1400 2500 Balance Result Diagrams: 05/09/18 05:30 05/09/18 05:30 Phys Exam - Physical Examination Constitutional: NAD HEENT: moist MMs Neck: no nodes, supple Respiratory: no wheezing, clear to auscultation bilateral Cardiovascular: RRR, no rub 2/6 systolic murmur Gastrointestinal: soft, non-tender, no distention, positive bowel sounds trace pitting edema in lower extremity Neurological: moves all 4 limbs Psychiatric: normal affect, A&O x 3 Skin: no rash, normal turgor, cap refill <2 seconds Dx/Plan (1) Acute respiratory failure with hypoxia Code(s): J96.01 - ACUTE RESPIRATORY FAILURE WITH HYPOXIA Status: Acute (2) CHF exacerbation Code(s): I50.9 - HEART FAILURE, UNSPECIFIED Status: Acute (3) DMII (diabetes mellitus, type 2) Status: Chronic (4) HLD (hyperlipidemia) Code(s): E78.5 - HYPERLIPIDEMIA, UNSPECIFIED Status: Chronic (5) HTN (hypertension) Code(s): I10 - ESSENTIAL (PRIMARY) HYPERTENSION Status: Chronic (6) PVD (peripheral vascular disease) Code(s): I73.9 - PERIPHERAL VASCULAR DISEASE, UNSPECIFIED Status: Chronic (7) S/P AKA (above knee amputation) Code(s): Z89.619 - ACQUIRED ABSENCE OF UNSPECIFIED LEG ABOVE KNEE Status: Chronic (8) Tobacco abuse Code(s): Z72.0 - TOBACCO USE Status: Chronic (9) Hypokalemia Code(s): E87.6 - HYPOKALEMIA Status: Acute - Plan Plan: Macrocytic Anemia 2/2 folate deficiency and CKD, improving -Hgb down to 7.0, symptomatic with SOB - Hgb improved from 7.4 to 8.4 after 1 unit PRBCs followed by Lasix, O2 needs reduced now on RA satting 95% - Stool occult blood negative - B12 wnl, folate LOW, replaced with daily vitamin (folate and B12) - Retic shows appropriate elevation - LDH elevated, Haptoglobin drawn but pending - MMA pending and Homocysteine elevated to evaluate for B12 deficiency - Peripheral blood smear pending Acute Hypoxic Respiratory Failure 2/2 volume overload, improving - CXR showed interstitial infiltrate, bilat pleural effusions, c/w CHF - Decreased lasix to 40 PO BID as BUN/Cr trending up, and had -3 L yesterday - fluid restrict to 1800 ml/day - Strict I/Os - 95% on RA today HFpHF , new onset CHF Exacerbation, improving - Patient hypoxic in upper 80s on presentation, improved to 96% on 2L BNC; SOB, CARPENTER, orthopneic, PND, RLE swelling; bilateral lower lobe fine crackles on physical exam, no tachycardia - Recent history of MIx2 Feb 2018 and Mar 2018 with recent cath, no stents placed - Echo 05/07/18: EF 60-65%, diastolic dysfunction with mild LA dilation - EKG NSR; CXR c/w CHF: bilat pleural effusions, cardiomegaly; BNP 600s. - Trop negx3 - RLE US showed no DVT - TSH wnl - Continue ASA and statin - Consulted heart failure clinic - Strict I/Os, daily weights Hypokalemia, resolved - K 3.2 -> 3.8 -> 3.6 -> 4.1 - potassium will be monitored and replaced as needed - AM BMP DM2, controlled -continue pioglitazone -mild SSI with accuchecks -CC diet -A1C 5.1 HTN, controlled -continue home meds HLD -continue ASA and statin PVD CKD3 -aware, BUN/Cr at baseline Tobacco abuse -Quit cold turkey 2.5 wks ago ->30 PY history Hx of H pylori, s/p treatment Hx SMA stenosis s/p stenting DVT Ppx: lovenox GI ppx: Ranitidine Dispo: tele inpatient, expect LOS >2midnights PCP: [facility] Code status: full code Addendum - Attending - Attending Attestation Date/Time: 05/09/18 4368 I personally evaluated the patient and discussed the management with Dr. Almaz Byrne I agree with the History, Examination, Assessment and Plan documented above with any addition or exceptions noted below. Macrocytic anemia folate deficiency MMA pending convert to po and continue observation.
[2018-05-09 06:12] LABS: #Eosinphils 0.1 thou/uL (0.0-0.7); #Lymphocytes 1.2 thou/uL (1.20-3.40); #Monocytes 0.5 thou/uL (0.11-0.59); #Neutrophils 3.5 thou/uL (1.40-6.50); %Basophils 0.8 % (0.0-1.0); %Eosinophils 1.4 % (0.0-10.0); %Neutrophils 65.9 % (42.0-75.0); Hemoglobin 8.5 g/dL (12.0-16.0); Mean Corpuscular HGB CONC 32.3 g/dL (32.0-36.0); Mean Corpuscular Hemoglobin 32.1 pg (27.0-31.0); Mean Corpuscular Volume 99.3 fL (78.0-98.0); Mean Platelet Volume 7.6 fL (7.4-10.4); Platelet Count 285 thou/uL (130-400); RBC Distribution Width 17.3 % (11.5-14.5); Red Blood Cell (RBC) Count 2.66 mill/uL (4.20-5.40); White Blood Cell (WBC) Count 5.4 thou/uL (4.8-10.8)
[2018-05-09 06:31] LABS: Anion Gap 14 mmol/L (10-20); BUN (Urea Nitrogen) 18 mg/dL (9.8-20.1); Calc. Creatinine Clearance 51 mL/min (70-130); Calcium 8.9 mg/dL (7.8-10.44); Carbon Dioxide 24 mmol/L (22-29); Chloride 104 mmol/L (98-107); Estimated GFR-MDRD 53; Glucose 81 mg/dL (70-105); Potassium 4.1 mmol/L (3.5-5.1); Sodium 138 mmol/L (136-145)
[2018-05-09] MEDS ORDERED: Folic Acid 0.4 MG in Admixture Fee 1 EACH SC SCH (09:00)
[2018-05-09] MEDS ORDERED: Furosemide 20 MG TAB PO SCH (09:00)
[2018-05-09] MEDS: Famotidine 20 MG TAB PO SCH ×2 (09:24→21:15)
[2018-05-09] MEDS: Folic Acid/Vit B Comp W-C PO SCH (09:25)
[2018-05-09] MEDS: Aspirin 81 mg Enteric Coated Tablet PO SCH (09:25)
[2018-05-09] MEDS: Potassium Chloride 20 MEQ TAB PO SCH ×2 (09:25→21:21)
[2018-05-09] MEDS: NIFEdipine XL 60 MG TAB PO SCH (09:25)
[2018-05-09] MEDS: Enoxaparin Sodium 40 MG/0.4 ML SYRINGE SC SCH (09:26)
[2018-05-09] MEDS: Metoprolol Tartrate 50 MG TAB PO SCH ×2 (09:36→21:16)
[2018-05-09] MEDS: Furosemide 40 MG TAB PO SCH ×2 (09:36→13:30)
[2018-05-09] MEDS ORDERED: Cyanocobalamin 1000 MCG/ML VIAL IM SCH (13:00)
[2018-05-09] MEDS: Atorvastatin Calcium 40 MG TAB PO SCH ×2 (21:14→21:15)
[2018-05-09] MEDS: Clopidogrel Bisulfate 75 MG TAB PO SCH (21:15)
[2018-05-10 05:53] LABS: #Eosinphils 0.1 thou/uL (0.0-0.7); #Lymphocytes 1.2 thou/uL (1.20-3.40); #Monocytes 0.4 thou/uL (0.11-0.59); #Neutrophils 3.5 thou/uL (1.40-6.50); %Basophils 0.1 % (0.0-1.0); %Eosinophils 1.5 % (0.0-10.0); %Lymphocytes 22.8 % (21.0-51.0); %Monocytes 8.5 % (0.0-10.0); %Neutrophils 67.1 % (42.0-75.0); Hemoglobin 8.6 g/dL (12.0-16.0); Mean Corpuscular HGB CONC 31.3 g/dL (32.0-36.0); Mean Corpuscular Hemoglobin 31.3 pg (27.0-31.0); Mean Corpuscular Volume 99.9 fL (78.0-98.0); Mean Platelet Volume 7.2 fL (7.4-10.4); Platelet Count 282 thou/uL (130-400); Red Blood Cell (RBC) Count 2.74 mill/uL (4.20-5.40); White Blood Cell (WBC) Count 5.2 thou/uL (4.8-10.8)
--- NOTE | 2018-05-10 06:08 | PDOC.FM ---
- Subjective Subjective: Patient feels well today, has continued to have dry cough. States also has some soreness on top of right foot. States she has been off O2 all of last day, and was able to sleep well last night. Discussed fluid restriction and avoiding salt intake. - Objective Vital Signs & Weight: Vital Signs (12 hours) Temp Pulse Resp BP BP Pulse Ox 05/10/18 04:00 98.1 F 83 17 118/61 96 05/09/18 20:15 100 05/09/18 19:20 98 F 87 16 126/58 L 100 Weight Weight 62.46 kg I&O: 05/08/18 05/09/18 05/10/18 06:59 06:59 06:59 Intake Total 1320 1670 1260 Output Total 1400 5500 4250 Balance -80 -7005 -2999 Result Diagrams: 05/10/18 05:18 05/10/18 05:18 Phys Exam - Physical Examination Constitutional: NAD Respiratory: no wheezing, no rales, no rhonchi Cardiovascular: RRR, no significant murmur, no rub Gastrointestinal: soft, non-tender, no distention Musculoskeletal: no edema, pulses present Neurological: non-focal, moves all 4 limbs slight tenderness to palpation over dorsal surface of foot Psychiatric: normal affect, A&O x 3 Skin: no rash, normal turgor, cap refill <2 seconds Dx/Plan (1) Acute respiratory failure with hypoxia Code(s): J96.01 - ACUTE RESPIRATORY FAILURE WITH HYPOXIA Status: Acute (2) CHF exacerbation Code(s): I50.9 - HEART FAILURE, UNSPECIFIED Status: Acute (3) DMII (diabetes mellitus, type 2) Status: Chronic (4) HLD (hyperlipidemia) Code(s): E78.5 - HYPERLIPIDEMIA, UNSPECIFIED Status: Chronic (5) HTN (hypertension) Code(s): I10 - ESSENTIAL (PRIMARY) HYPERTENSION Status: Chronic (6) PVD (peripheral vascular disease) Code(s): I73.9 - PERIPHERAL VASCULAR DISEASE, UNSPECIFIED Status: Chronic (7) S/P AKA (above knee amputation) Code(s): Z89.619 - ACQUIRED ABSENCE OF UNSPECIFIED LEG ABOVE KNEE Status: Chronic (8) Tobacco abuse Code(s): Z72.0 - TOBACCO USE Status: Chronic (9) Hypokalemia Code(s): E87.6 - HYPOKALEMIA Status: Acute - Plan Plan: Macrocytic Anemia 2/2 folate deficiency and CKD, improving - Hgb improved from 7.4 to 8.4 after 1 unit PRBCs followed by Lasix, O2 needs reduced now on RA satting 95% - Stool occult blood negative - Retic shows appropriate elevation - LDH elevated, Haptoglobin drawn but pending - B12 wnl, folate LOW, replaced both with daily vitamin - MMA pending and Homocysteine elevated to evaluate for B12 deficiency - Peripheral blood smear shows only macrocytosis - S/p B12 injection 05/09 Acute Hypoxic Respiratory Failure 2/2 volume overload, improving - CXR showed interstitial infiltrate, bilat pleural effusions, c/w CHF - Lasix 40 PO BID, and had -3 L again - fluid restrict to 1800 ml/day - Strict I/Os - 95% on RA today, slept well overnight HFpHF , new onset CHF Exacerbation, improving - Patient hypoxic in upper 80s on presentation, improved to 96% on 2L BNC; SOB, CARPENTER, orthopneic, PND, RLE swelling; bilateral lower lobe fine crackles on physical exam, no tachycardia - Recent history of MIx2 Feb 2018 and Mar 2018 with recent cath, no stents placed - Echo 05/07/18: EF 60-65%, diastolic dysfunction with mild LA dilation - EKG NSR; CXR c/w CHF: bilat pleural effusions, cardiomegaly; BNP 600s. - Trop negx3 - RLE US showed no DVT - TSH wnl - Continue ASA and statin - Consulted heart failure clinic - Strict I/Os, daily weights Hypokalemia, resolved - K 3.2 -> 4.1 - potassium will be monitored and replaced as needed DM2, controlled -continue pioglitazone -mild SSI with accuchecks -CC diet -A1C 5.1 HTN, controlled -continue home meds HLD -continue ASA and statin PVD CKD3 -aware, BUN/Cr at baseline Tobacco abuse -Quit cold turkey 2.5 wks ago ->30 PY history Hx of H pylori, s/p treatment Hx SMA stenosis s/p stenting DVT Ppx: lovenox GI ppx: Ranitidine Dispo: most likely home today, pending clinical status changes PCP: Dr. Jourdan Liao, [facility] Code status: full code Addendum - Attending - Attending Attestation Date/Time: 05/10/18 5616 I personally evaluated the patient and discussed the management with Dr. Kumar I agree with the History, Examination, Assessment and Plan documented above with any addition or exceptions noted below. De-escalate furosemide and short term f/u outpatient MMA still pending and rec outpt spirometry.
[2018-05-10 06:15] LABS: Anion Gap 13 mmol/L (10-20); BUN (Urea Nitrogen) 20 mg/dL (9.8-20.1); Calc. Creatinine Clearance 47 mL/min (70-130); Carbon Dioxide 27 mmol/L (22-29); Chloride 105 mmol/L (98-107); Estimated GFR-MDRD 51; Glucose 79 mg/dL (70-105); Potassium 3.9 mmol/L (3.5-5.1); Sodium 141 mmol/L (136-145)
[2018-05-10 07:53] VITALS: TEMP 97.8
[2018-05-10] MEDS: Metoprolol Tartrate 50 MG TAB PO SCH (08:00)
[2018-05-10] MEDS: Aspirin 81 mg Enteric Coated Tablet PO SCH (08:00)
[2018-05-10] MEDS: Famotidine 20 MG TAB PO SCH (08:00)
[2018-05-10] MEDS: Potassium Chloride 20 MEQ TAB PO SCH (08:00)
[2018-05-10] MEDS: Enoxaparin Sodium 40 MG/0.4 ML SYRINGE SC SCH (08:00)
[2018-05-10] MEDS: NIFEdipine XL 60 MG TAB PO SCH (08:01)
[2018-05-10] MEDS: Furosemide 40 MG TAB PO SCH (08:01)
[2018-05-10] MEDS ORDERED: Folic Acid/Vit B Comp W-C PO SCH (09:00)
[2018-05-10 12:01] VITALS: BP 162/72
[2018-05-11 06:15] LABS: Methylmalonic Acid 251 nmol/L (0-378)
== END 2018-05-10 12:41 | disposition home or self-care (01) | DRG 291 ==
LOC: ERS 09:34 → ERHOLD 12:55 → 2NO 14:57
PROVIDERS: ADMIT Family Medicine; ATTEND Family Medicine
DX: I13.0 Hypertensive heart and chronic kidney disease with heart failure and stage 1 through stage 4 chronic kidney disease, or unspecified chronic kidney disease (principal); I50.33 Acute on chronic diastolic (congestive) heart failure; J96.01 Acute respiratory failure with hypoxia; E78.5 Hyperlipidemia, unspecified; E11.51 Type 2 diabetes mellitus with diabetic peripheral angiopathy without gangrene; E11.22 Type 2 diabetes mellitus with diabetic chronic kidney disease; N18.3 Chronic kidney disease, stage 3 (moderate); F17.210 Nicotine dependence, cigarettes, uncomplicated; F12.10 Cannabis abuse, uncomplicated; E87.6 Hypokalemia; D53.9 Nutritional anemia, unspecified; E53.8 Deficiency of other specified B group vitamins; Z79.82 Long term (current) use of aspirin; Z88.2 Allergy status to sulfonamides; I25.2 Old myocardial infarction; Z89.612 Acquired absence of left leg above knee
CPT/HCPCS: 36415; 36416; 36430; 71045; 80048; 80053; 82274; 82550; 82607; 82746; 83010; 83036; 83090; 83615; 83690; 83735; 83880; 83921; 84443; 84484; 85025; 85046; 85060; 86850; 86900; 86901; 93005; 93306; 93798; 96374; J1650; J1940; J3420; J3475; P9016

== ENCOUNTER 2018-11-08 09:13 | Day surgery (SDC) | payer MEDICARE, MEDICAID ==
[2018-11-08 10:14] VITALS: BP 199/80; TEMP 97.6
[2018-11-08] MEDS ORDERED: EPOETIN ALFA-EPBX (ESRD) 40,000 UNIT/ML VIAL SC SCH (10:30)
== END 2018-11-08 15:17 | disposition home or self-care (01) ==
LOC: ONC/OP 09:13
PROVIDERS: ATTEND Internal Medicine Hematology & Oncology
DX: D63.1 Anemia in chronic kidney disease (principal); N18.9 Chronic kidney disease, unspecified; Z88.2 Allergy status to sulfonamides
CPT/HCPCS: 96372; Q5105

== ENCOUNTER → 2018-11-22 | Day surgery (SDC) | payer MEDICARE, MEDICAID ==
[~2018-11-22] MED LIST: EPOETIN ALFA-EPBX (ESRD) 40,000 UNIT/ML VIAL ONE; EPOETIN ALFA-EPBX (ESRD) 40,000 UNIT/ML VIAL SC SCH
[2018-11-22 09:07] VITALS: BP 183/72; TEMP 97.4
== END ==
LOC: ONC/OP 08:39
PROVIDERS: ATTEND Internal Medicine Hematology & Oncology
DX: N18.9 Chronic kidney disease, unspecified (principal); D63.1 Anemia in chronic kidney disease; Z88.2 Allergy status to sulfonamides; Z88.8 Allergy status to other drugs, medicaments and biological substances
CPT/HCPCS: 96372; Q5105

== ENCOUNTER 2018-12-06 08:56 | Day surgery (SDC) | payer MEDICARE, MEDICAID ==
[2018-12-06 09:03] VITALS: BP 186/79; TEMP 97.9
[2018-12-06] MEDS ORDERED: EPOETIN ALFA-EPBX (ESRD) 40,000 UNIT/ML VIAL SC SCH (09:45)
== END 2018-12-06 10:11 | disposition home or self-care (01) ==
LOC: ONC/OP 08:56
PROVIDERS: ATTEND Internal Medicine Hematology & Oncology
DX: N18.9 Chronic kidney disease, unspecified (principal); D63.1 Anemia in chronic kidney disease; Z88.2 Allergy status to sulfonamides
CPT/HCPCS: 96372; Q5105

== ENCOUNTER 2018-12-20 09:39 | Day surgery (SDC) | payer MEDICARE, MEDICAID ==
[2018-12-20] MEDS ORDERED: EPOETIN ALFA-EPBX (ESRD) 40,000 UNIT/ML VIAL ONE (09:41)
[2018-12-20] MEDS ORDERED: EPOETIN ALFA-EPBX (ESRD) 40,000 UNIT/ML VIAL SC SCH (10:00)
[2018-12-20 10:44] VITALS: BP 166/60; TEMP 98.6
== END 2018-12-20 11:09 | disposition home or self-care (01) ==
LOC: ONC/OP 09:39
PROVIDERS: ATTEND Internal Medicine Hematology & Oncology
DX: N18.9 Chronic kidney disease, unspecified (principal); D63.1 Anemia in chronic kidney disease; Z88.2 Allergy status to sulfonamides
CPT/HCPCS: 96367; Q5105

== ENCOUNTER 2019-01-03 09:42 | Day surgery (SDC) | payer MEDICARE, MEDICAID ==
[2019-01-03] MEDS ORDERED: EPOETIN ALFA-EPBX (ESRD) 40,000 UNIT/ML VIAL ONE (10:12)
[2019-01-03 10:15] VITALS: BP 137/63; TEMP 98.1
== END 2019-01-03 10:18 | disposition home or self-care (01) ==
LOC: ONC/OP 09:42
PROVIDERS: ATTEND Internal Medicine Hematology & Oncology
DX: N18.9 Chronic kidney disease, unspecified (principal); D63.1 Anemia in chronic kidney disease; Z88.1 Allergy status to other antibiotic agents; Z88.2 Allergy status to sulfonamides
CPT/HCPCS: 36415; 82607; 82728; 96372; Q5105

== ENCOUNTER 2019-04-11 09:08 | Day surgery (SDC) | payer MEDICARE, MEDICAID ==
[2019-04-11] MEDS ORDERED: EPOETIN ALFA-EPBX (ESRD) 40,000 UNIT/ML VIAL ONE (09:11)
[2019-04-11 10:18] VITALS: BP 171/72; TEMP 98
== END 2019-04-11 10:38 | disposition home or self-care (01) ==
LOC: ONC/OP 09:08
PROVIDERS: ATTEND Internal Medicine Hematology & Oncology
DX: N18.9 Chronic kidney disease, unspecified (principal); D63.1 Anemia in chronic kidney disease; Z88.2 Allergy status to sulfonamides
CPT/HCPCS: 82728; 83540; 83550; 96372; Q5105

== ENCOUNTER 2019-05-09 09:10 | Day surgery (SDC) | payer MEDICARE, MEDICAID ==
[~2019-05-09 09:10] MED LIST changes: -EPOETIN ALFA-EPBX (ESRD) 40,000 UNIT/ML VIAL ONE
[2019-05-09] MEDS ORDERED: EPOETIN ALFA-EPBX (ESRD) 40,000 UNIT/ML VIAL ONE (09:14)
[2019-05-09 10:05] VITALS: BP 145/65; TEMP 97.8
== END 2019-05-09 11:41 | disposition home or self-care (01) ==
LOC: ONC/OP 09:10
PROVIDERS: ATTEND Internal Medicine Hematology & Oncology
DX: N18.9 Chronic kidney disease, unspecified (principal); D63.1 Anemia in chronic kidney disease; Z88.2 Allergy status to sulfonamides
CPT/HCPCS: 96372; Q5105

== ENCOUNTER 2019-07-02 05:59 | Inpatient (IN) | payer MEDICARE, MEDICAID ==
[2019-07-02 06:41] LABS: #Basophils 0.1 thou/uL (0.0-0.2); #Eosinphils 0.1 thou/uL (0.0-0.7); #Lymphocytes 1.6 thou/uL (1.20-3.40); #Monocytes 0.3 thou/uL (0.11-0.59); #Neutrophils 3.3 thou/uL (1.40-6.50); %Eosinophils 1.2 % (0.0-10.0); %Lymphocytes 29.2 % (21.0-51.0); %Monocytes 5.8 % (0.0-10.0); %Neutrophils 62.8 % (42.0-75.0); Hemoglobin 11.1 g/dL (12.0-16.0); Mean Corpuscular HGB CONC 33.3 g/dL (32.0-36.0); Mean Platelet Volume 8.8 fL (7.4-10.4); Platelet Count 152 thou/uL (130-400); RBC Distribution Width 14.3 % (11.5-14.5); Red Blood Cell (RBC) Count 3.08 mill/uL (4.20-5.40); White Blood Cell (WBC) Count 5.3 thou/uL (4.8-10.8)
[2019-07-02 06:47] LABS: PTT 34.3 SEC (22.9-36.1); Prothrombin Time 13.3 SEC (12.0-14.7)
[2019-07-02 07:04] LABS: ALT (SGPT) 16 U/L (8-55); AST (SGOT) 21 U/L (5-34); Albumin 3.7 g/dL (3.5-5.0); Alkaline Phosphatase 90 U/L (40-110); Anion Gap 12 mmol/L (10-20); BUN (Urea Nitrogen) 32 mg/dL (9.8-20.1); Bilirubin, Total 0.2 mg/dL (0.2-1.2); Calc. Creatinine Clearance 0 mL/min (70-130); Calcium 9.1 mg/dL (7.8-10.44); Carbon Dioxide 21 mmol/L (22-29); Chloride 111 mmol/L (98-107); Estimated GFR-MDRD 32; Globulin 3.6 g/dL (2.4-3.5); Glucose 93 mg/dL (70-105); Potassium 4.3 mmol/L (3.5-5.1); Protein, Total 7.3 g/dL (6.0-8.3); Sodium 140 mmol/L (136-145)
[2019-07-02] MEDS ORDERED: Midazolam HCl 2 mg/2 ml Vial ONE (09:33)
[2019-07-02] MEDS ORDERED: hydrALAZINE 20 MG/ML VIAL ONE (09:41)
[2019-07-02] MEDS ORDERED: Fentanyl 100 MCG/2 ML VIAL ONE ×2 (09:45→10:56)
[2019-07-02] MEDS ORDERED: Morphine 2 MG/ML SYRINGE ONE (10:37)
--- NOTE | 2019-07-02 12:12 | CON ---
DATE OF CONSULTATION: HISTORY OF PRESENT ILLNESS: This is a 59-year-old female with a long history of peripheral vascular disease, having multiple procedures on her left leg, ultimately resulting in an [id number] amputation. She then had a right common iliac stent for rest pain in 2006 and has managed to go many years before developing ischemic rest pain again on that right leg. Cardiovascular risk factors include a continued and longstanding smoking history, hypertension, dyslipidemia, diabetes mellitus. OTHER PAST MEDICAL HISTORY: Includes chronic anemia, congestive heart failure due to diastolic dysfunction with a normal ejection fraction. Mild coronary artery disease with two recent cardiac catheterizations, 1 at [facility] and 1 here in 2018. Chronic kidney disease, followed by Dr. Louise. PAST SURGICAL HISTORY: Includes left [id number] amputation, right carotid endarterectomy, hysterectomy, , right iliac stent 2006, right breast cyst removal. SOCIAL HISTORY: She lives alone, but her daughter accompanies her frequently. The patient admits to smoking at least to half a pack of cigarettes a day. PHYSICAL EXAMINATION: GENERAL: Alert, cooperative lady, in no distress. Blood pressure is 120/80, weight 188, heart rate 67. NECK EXAMINATION: Harsh right carotid bruit with a right carotid endarterectomy scar. Soft left carotid bruit. CARDIAC EXAM: Regular rate and rhythm. No murmurs. Distant heart sounds. LUNGS: Clear to auscultation anteriorly. ABDOMEN: Obese, nontender. EXTREMITIES: She has a dressing on the right groin. She has swelling in her right foot. She has no palpable pedal pulses in her right foot and had previous left [id number] amputation. IMAGING STUDIES: I have reviewed her CT scan from 2018 as well as angiography from that time and angiography today. She appears to have about a 60% stenosis in her right common iliac artery stent and complete occlusion of the right superficial femoral artery with reconstitution above the knee, and then patent anterior tibial and peroneal vessels that appear to taper at the ankle. Posterior tibial . Due to ischemic rest pain with the patient having to hang her foot off the bed for the last 2 weeks for relief, I feel that she needs urgent revascularization and will plan a repeat stenting of the common iliac artery as well as right femoral-popliteal bypass. I have performed an ultrasound on her saphenous vein and it appears usable. MEDICATIONS: Include, 1. Bupropion 150 extended release daily. 2. Lasix 20 mg a day. 3. Plavix 75 mg a day. 4. Aspirin 81 a day. 5. Metoprolol tartrate 50 b.i.d. 6. Lipitor 80 at bedtime. 7. Protonix 20 daily. 8. Potassium 10 daily. 9. Iron replacement. 10. Pioglitazone 45 mg daily. 11. Procrit injections. ALLERGIES: SHE REPORTS ALLERGIES TO SULFA AND BACTRIM. INFORMED CONSENT HAS BEEN OBTAINED. Job ID: [id number]
[2019-07-02] MEDS: Sodium Chloride 0.9% 1,000 ML IV SCH (13:55)
[2019-07-02] MEDS ORDERED: Nitroglycerin 0.4 MG TAB (25 Tab Bottle) SL PRN (14:15)
[2019-07-02] MEDS ORDERED: traMADol HCl 50 MG TAB PO PRN (14:15)
[2019-07-02] MEDS ORDERED: Sodium Chloride 0.9% 1,000 ML IV SCH (14:15)
[2019-07-02] MEDS ORDERED: Acetaminophen/Codeine 30-300mg Tablet PO PRN ×2 (14:15)
[2019-07-02] MEDS ORDERED: Dextrose 50% Abboject 50 ML SYRINGE SLOW IVP PRN (14:17)
[2019-07-02] MEDS ORDERED: Acetaminophen 325 MG TAB PO PRN (14:17)
[2019-07-02] MEDS ORDERED: Insulin Regular 300 UNITS/3 ML VIAL SC PRN (14:17)
[2019-07-02] MEDS ORDERED: Ondansetron PF 4 MG/2 ML Vial IVP PRN (14:17)
[2019-07-02] MEDS ORDERED: Dextrose 5% in Water 1,000 ML IV PRN (14:17)
[2019-07-02] MEDS ORDERED: Fentanyl 100 MCG/2 ML VIAL SLOW IVP PRN (14:17)
[2019-07-02] MEDS ORDERED: Senokot S 8.6-50 MG TAB PO PRN (14:17)
[2019-07-02 14:35] VITALS: BMI 26.6
[2019-07-02] MEDS: Famotidine 20 MG TAB PO SCH (20:05)
[2019-07-02] MEDS: HYDROcodone/Acetaminophen 5/325 mg Tablet PO PRN (20:05)
[2019-07-02] MEDS: Atorvastatin Calcium 40 MG TAB PO SCH (20:06)
[2019-07-02] MEDS: Metoprolol Tartrate 50 MG TAB PO SCH (20:06)
[2019-07-03] MEDS: Sodium Chloride 0.9% 1,000 ML IV SCH ×2 (04:56→16:14)
[2019-07-03 05:45] LABS: #Eosinphils 0.1 thou/uL (0.0-0.7); #Lymphocytes 1.4 thou/uL (1.20-3.40); #Monocytes 0.3 thou/uL (0.11-0.59); #Neutrophils 2.8 thou/uL (1.40-6.50); %Basophils 0.5 % (0.0-1.0); %Eosinophils 1.1 % (0.0-10.0); %Lymphocytes 30.1 % (21.0-51.0); %Monocytes 7.1 % (0.0-10.0); %Neutrophils 61.2 % (42.0-75.0); Hemoglobin 10.2 g/dL (12.0-16.0); Mean Corpuscular HGB CONC 33.3 g/dL (32.0-36.0); Mean Corpuscular Hemoglobin 36.2 pg (27.0-31.0); Platelet Count 138 thou/uL (130-400); RBC Distribution Width 14.3 % (11.5-14.5); Red Blood Cell (RBC) Count 2.82 mill/uL (4.20-5.40); White Blood Cell (WBC) Count 4.6 thou/uL (4.8-10.8)
[2019-07-03 06:05] LABS: Anion Gap 12 mmol/L (10-20); BUN (Urea Nitrogen) 26 mg/dL (9.8-20.1); Calc. Creatinine Clearance 47 mL/min (70-130); Calcium 8.6 mg/dL (7.8-10.44); Carbon Dioxide 18 mmol/L (22-29); Chloride 112 mmol/L (98-107); Estimated GFR-MDRD 38; Glucose 86 mg/dL (70-105); Potassium 3.9 mmol/L (3.5-5.1); Sodium 138 mmol/L (136-145)
[2019-07-03] MEDS: Metoprolol Tartrate 50 MG TAB PO SCH ×2 (06:29→19:31)
[2019-07-03] MEDS ORDERED: Protamine Sulfate 50 MG/5 ML VIAL ONE (06:31)
[2019-07-03] MEDS ORDERED: Heparin 5,000 UNITS/ML VIAL ONE (06:31)
[2019-07-03] MEDS ORDERED: Fentanyl 250 MCG/5 ML VIAL ONE (06:47)
[2019-07-03] MEDS ORDERED: Midazolam HCl 2 mg/2 ml Vial ONE (07:01)
[2019-07-03] MEDS ORDERED: Iothalamate Meglumine 60% 50 ML VIAL FS ONE (07:44)
[2019-07-03] MEDS: Bupropion 150 MG SR TAB PO SCH (10:10)
[2019-07-03] MEDS ORDERED: Dexamethasone 20 MG/5 ML VIAL ONE (11:21)
[2019-07-03] MEDS ORDERED: PROPOFOL 200 MG/20 ML VIAL ONE (11:21)
[2019-07-03] MEDS ORDERED: Rocuronium Bromide 10 MG/ML (10ML VIAL) ONE (11:21)
[2019-07-03] MEDS ORDERED: Labetalol HCl 100 MG/20 ML VIAL ONE (11:21)
[2019-07-03] MEDS ORDERED: Ondansetron PF 4 MG/2 ML Vial ONE (11:21)
[2019-07-03] MEDS ORDERED: Lidocaine 1% PF 5 ML VIAL ONE (11:21)
[2019-07-03] MEDS ORDERED: Glycopyrrolate 0.2 MG/ML 5 ML SYRINGE ONE (11:21)
[2019-07-03] MEDS ORDERED: hydrALAZINE 20 MG/ML VIAL ONE (11:47)
[2019-07-03] MEDS ORDERED: Fentanyl 100 MCG/2 ML VIAL SLOW IVP PRN (11:59)
[2019-07-03] MEDS ORDERED: HYDROcodone/Acetaminophen 5/325 mg Tablet PO PRN (11:59)
[2019-07-03] MEDS ORDERED: Ondansetron HCl/PF 4 MG/2 ML Vial IVP PRN (12:10)
[2019-07-03] MEDS ORDERED: Promethazine HCl 25 MG/ML VIAL SLOW IVP PRN (12:10)
[2019-07-03] MEDS ORDERED: Promethazine HCl 25 MG/ML VIAL IM PRN (12:10)
--- NOTE | 2019-07-03 12:19 | DIS ---
DATE OF ADMISSION: 07/02/2019 DATE OF DISCHARGE: DATE OF THE PROCEDURE AN OUTPATIENT: 07/02/2019. ADMITTING DIAGNOSES: Included peripheral vascular disease, status post multiple procedures on the iliacs and femoral arteries. She has also had a stent placement to the superior mesenteric artery. She has hypertension, hypercholesterolemia, diabetes, continues to smoke. She has had a left above knee amputation. DISCHARGE DIAGNOSES: Included peripheral vascular disease, status post multiple procedures on the iliacs and femoral arteries. She has also had a stent placement to the superior mesenteric artery. She has hypertension, hypercholesterolemia, diabetes, continues to smoke. She has had a left above knee amputation. She has diffuse peripheral vascular disease with severe peripheral mass disease involving the right superficial femoral artery as well as bilateral common iliac stenosis. PROCEDURES PERFORMED: Distal aortogram with runoff to lower extremity, also selective injections involving the right common femoral artery, also bilateral selective injections of the renal arteries using minimal contrast. Total contrast for the procedure was 40 mL. She will be seen in consultation by Dr. Enrique for peripheral vascular disease for possible intervention. DISCHARGE MEDICATIONS: Will be the same as her admission medications. These include, 1. Tylenol. 2. Aspirin 81 mg a day. 3. Lipitor 80 mg a day. 4. Plavix 75 mg a day. 5. Ferrous sulfate 65 mg once a day. 6. Folic acid 5 mg a day. 7. Lasix 20 mg a day. 8. Metoprolol 50 mg a day. 9. Actos 45 mg q.a.m. FOLLOWUP: She will follow with me in approximately 1 month in the office. She will be at the discretion of Dr. Enrique for further interventions. HOSPITAL COURSE: 1. As noted, 59-year-old female with severe peripheral vascular disease, who has undergone multiple procedures, mostly by Dr. Enrique in the past, now presented with further episodes of severe claudication and images, Doppler evaluation showed severe disease of the right lower extremity. She was advised to undergo a distal aortogram with runoff to lower extremities using minimal contrast. She was taken to cardiac sanitation lab[facility], where this was performed today without difficulties or complications encountered. She was found to have no evidence of renal artery stenosis. 2. Bilateral common iliac stenosis is more than 80% with a gradient 30 mm gradient across the right common iliac. She had a previously placed stent in both external iliacs extending up into the common iliacs. The stent on the right side remained patent. The stent on the left side was not clearly evaluated, but the left external iliac into the common femoral artery appears to be 100% occluded. 3. Patent stent in the right common to external iliac. There was a 20 mm gradient distal to the stent in the right external iliac. The right superficial femoral artery is subtotal in the proximal area and in the mid area, has heavy calcifications and no significant flow was noted. There was been reconstitution of the distal superficial femoral artery just above the level of the popliteal artery via collateral fillings by the profunda femoral artery. She does have two- vessel runoff noted to the foot, both in the peroneal and the anterior tibial artery. The posterior tibial was 100% occluded. I will discuss her case with the surgeons as to whether or not she may need to undergo further angioplasty and stent placement to the right common iliac to reopen this vessel and then perform a femoral- popliteal bypass to the severely stenosed right superficial femoral artery. She tolerated the procedure well. There were no difficulties encountered. She remained stable. She will be discharged home later today. She does have significant hypertension during the procedure. She had a systolic blood pressure over 200. She did require, I believe 20 mg of hydralazine in the procedure just for the lowering of the blood pressure. She did also receive 25mg fentanyl due to back pain and received 1 mg of IV versed for conscious sedation to the procedure. Job ID: [id number] [facility]
--- NOTE | 2019-07-03 12:24 | OP ---
DATE OF PROCEDURE: 07/02/2019 PREOPERATIVE DIAGNOSIS: Ischemic rest pain, right foot. PROCEDURES PERFORMED: Right common iliac stent 7 x 27 balloon expandable stent and then right common and deep femoral endarterectomy with right femoral to infrageniculate popliteal artery bypass with reverse saphenous vein. DESCRIPTION OF PROCEDURE: After adequate anesthesia had been obtained, the patient was prepped and draped. Initially, the incision was made below the knee, exposing the saphenous vein here and then the popliteal artery. The popliteal artery had areas of calcification and probably measured about 3 to 4 mm. Following this, the saphenous vein was harvested in the thigh using an endovascular vein harvest technique. After this had been done, incision was made in the right groin exposing the common femoral artery up to the inguinal ligament and then down onto the superficial femoral and deep femoral artery. The patient was fully heparinized, and ACTs were monitored. Needle puncture in the right femoral artery was carried out. Wire was passed into the aorta hanging up at the proximal common iliac artery several times before passing. Following this, a 7-Fijian marker sheath was placed, and angiography was obtained demonstrating the significant stenosis at the origin of the common iliac artery. A 7 x 27 mm stent was then deployed here with a good result. There was minimal external iliac artery stenosis. Following removal of the wire, clamps were applied. Arteriotomy was performed for about 3 to 4 cm extending onto the large profunda branch. There was dense calcification, which was endarterectomized from the common femoral artery including the profunda orifice. Following this, the vein was reversed after ligating branches and was used as a long onlay patch onto the common and then onto the deep femoral artery. It was then brought through the tunnel with the assistance of the endovascular harvest equipment. It was then passed posterior to the knee, and the popliteal artery was then opened and partially endarterectomized to allow needle punctures to be carried out, and then the suture line was completed. Following this, there was good Doppler signal distally. Hemostasis was obtained. Heparin was reversed, and the wounds were then closed in layers. Job ID: [id number]
[2019-07-03 12:37] LABS: Hemoglobin 9.4 g/dL (12.0-16.0); Platelet Count 133 thou/uL (130-400)
[2019-07-03] MEDS ORDERED: Fentanyl 100 MCG/2 ML VIAL ONE (12:39)
[2019-07-03] MEDS ORDERED: Sodium Chloride 0.9% 10 ML ONE (12:41)
[2019-07-03] MEDS: CEFAZOLIN 2 GM in Premix Bag 1 BAG IVPB SCH ×2 (14:48→21:55)
[2019-07-03] MEDS: HYDROcodone/Acetaminophen 5/325 mg Tablet PO PRN (16:13)
--- NOTE | 2019-07-03 19:02 | CCL ---
DATE OF PROCEDURE: 07/02/19 INDICATION FOR PROCEDURE: 59-year-old female with long history of diabetes, hypertension, hypercholesterolemia and tobacco abus e. She continues to smoke. She has had severe peripheral vascular disease noted in the past. She has chronic kidney disease. She complained of lower extremity claudication and underwent further evaluati on. She has had previous iliac stents placed. She also has had a superior mesenteric artery stent miguel cement. The iliac stents were from the common iliac all the way down to the external iliac. She had a totally occluded left external iliac in the past. She had a left AKA. She presented with further sym ptoms of claudication and was advised to undergo a repeat arteriogram to see if there was any further procedure that could be performed on the right leg. She was taken to the [facility] where she was prepped and draped in a sterile fashion. Using a 5 Tongan introducer sheath, placed into the righ t femoral artery using a #4 Tongan contra catheter placed in the distal aorta. Images were obtained. Hand injections were obtained with runoff using DSA technology. Also we placed a 5 Tongan JR4 cathet er in both the renal arteries. There was no significant renal artery gradients noted. IMPRESSION: 1. No evidence of renal artery stenosis. She does have plaque formation in the right renal arter y. She has a patent stent in the right common external iliac. She has bilateral common iliac stenosis of more than 80% bilaterally. There is a 30 mm gradient across the right common iliac into the diste nded area and beyond distal to the stent was another 20 mmHg gradient drop. Therefore the gradient be tween the aorta and the common femoral artery was about 50 mm gradient. The right superficial femoral artery is subtotal just after the takeoff from the common femoral artery. The superficial femoral ar francisca was then heavily calcified and no flow was noted until it reconstitutes down at the distal super ficial femoral artery just proximal to the popliteal artery. This reconstitution is via the profunda femoral artery. She does have two vessel runoff to the foot which includes the anterior tibial and th e peroneal. The posterior tibial artery is 100% occluded. She is status post left AKA. The left super ficial femoral artery is 100% occluded. The left external iliac has diffuse disease and stenosis. Tot al contrast was 40 mL. She was given 1 mg of IV versed. She was also given 25 mg of fentanyl for the procedure as she complained of back pain. She tolerated the procedure well. Throughout the procedure she was monitored by an independent observer present for heart rate, blood pressure and O2 saturation s and remained stable. 2. At this time the impression is severe peripheral vascular disease. We will discuss her case w ith the CV surgeons. She may need to undergo a femoropopliteal bypass. The common femoral artery uday eared to be at least patent and did not have any significant stenosis. Also she may need to undergo r epeat stent placement to the right common iliac in order to open this vessel up prior to undergoing t he bypass of the femoral popliteal artery. If she continues to smoke and she has been heavily encoura ged to stop smoking before she continues. Otherwise she tolerated the procedure well.
[2019-07-03] MEDS: Famotidine 20 MG TAB PO SCH (19:31)
[2019-07-03] MEDS: Atorvastatin Calcium 40 MG TAB PO SCH (19:31)
[2019-07-04] MEDS: HYDROcodone/Acetaminophen 5/325 mg Tablet PO PRN ×2 (00:17→09:49)
[2019-07-04] MEDS: CEFAZOLIN 2 GM in Premix Bag 1 BAG IVPB SCH ×2 (05:30→13:34)
[2019-07-04 06:50] LABS: Anion Gap 14 mmol/L (10-20); BUN (Urea Nitrogen) 25 mg/dL (9.8-20.1); Calc. Creatinine Clearance 45 mL/min (70-130); Calcium 7.8 mg/dL (7.8-10.44); Carbon Dioxide 15 mmol/L (22-29); Chloride 113 mmol/L (98-107); Estimated GFR-MDRD 36; Glucose 103 mg/dL (70-105); Sodium 138 mmol/L (136-145)
--- NOTE | 2019-07-04 07:05 | PRG ---
DATE OF SERVICE: 07/04/2019 SUBJECTIVE: The patient is now postoperative day #1 from a right common iliac artery stent, right common and profunda endarterectomy, right popliteal endarterectomy, and reverse saphenous vein bypass femoral to infrapopliteal artery. Blood pressure is 100 to 150, heart rate is in the 80s. She was sleeping when I examined her this morning, awakens easily with complaints only of some burning in her right 3rd toe. She slept well. She does still have some edema in her foot from having slept with her foot hanging down for the past 2 weeks. She had a good Doppler signal in her femoral-popliteal graft as well as her dorsalis pedis, really distal anterior tibial at the ankle. PLAN: Plan at this time is to begin gradual physical therapy and I have instructed her not to bend her right knee to 90 degrees for any prolonged period of time. Job ID: [id number]
[2019-07-04 07:26] LABS: #Lymphocytes 1.1 thou/uL (1.20-3.40); #Monocytes 0.5 thou/uL (0.11-0.59); #Neutrophils 5.6 thou/uL (1.40-6.50); %Basophils 0.1 % (0.0-1.0); %Eosinophils 0.3 % (0.0-10.0); %Lymphocytes 14.8 % (21.0-51.0); %Monocytes 7.5 % (0.0-10.0); %Neutrophils 77.2 % (42.0-75.0); MDiff Complete? YES; Mean Corpuscular HGB CONC 32.3 g/dL (32.0-36.0); Mean Corpuscular Hemoglobin 35.1 pg (27.0-31.0); Mean Platelet Volume 8.8 fL (7.4-10.4); Platelet Count 102 thou/uL (130-400); Platelet Morphology Comment Appears Decreased; Polychromasia SLIGHT = 2-3 cells (100X) (0-2/hpf); RBC Distribution Width 14.3 % (11.5-14.5); Red Blood Cell (RBC) Count 2.56 mill/uL (4.20-5.40); White Blood Cell (WBC) Count 7.2 thou/uL (4.8-10.8)
[2019-07-04] MEDS: Sodium Chloride 0.9% 1,000 ML IV SCH (07:54)
--- NOTE | 2019-07-04 08:37 | PDOC.CPN ---
- Subjective Date: 07/04/19 Time: 08:30 Interval history: The pt seen and examined. No overnight events. No cardiac complaints. Only symptom she has is mild pain to her Rt 3rd toe. - Objective Allergies/Adverse Reactions: Allergies Allergy/AdvReac Type Severity Reaction Status Date / Time sulfamethoxazole Allergy Verified 07/02/19 14:29 [From Bactrim] trimethoprim [From Bactrim] Allergy Verified 07/02/19 14:29 Visit Medications: Current Medications Acetaminophen (Tylenol) 650 mg PO Q4H PRN PRN Reason: Headache/Fever/Mild Pain (1-3) Hydrocodone Bitart/Acetaminophen ([place] 5/325) 1 tab PO Q4H PRN PRN Reason: Moderate Pain (4-6) Last Admin: 07/04/19 00:17 Dose: 1 tab Hydrocodone Bitart/Acetaminophen ([place] 5/325) 2 tab PO Q4H PRN PRN Reason: Severe Pain (7-10) Aspirin (Ecotrin) 81 mg PO QAM [facility] Atorvastatin Calcium (Lipitor) 80 mg PO HS [facility] Last Admin: 07/03/19 19:31 Dose: 80 mg Bupropion HCl (Wellbutrin Sr) 150 mg PO DAILY [facility] Stop: 07/05/19 09:01 Last Admin: 07/03/19 10:10 Dose: Not Given Clopidogrel Bisulfate (Plavix) 75 mg PO QPM [facility] Dextrose/Water (Dextrose 50%) 25 gm SLOW IVP PRN PRN PRN Reason: Hypoglycemia Enoxaparin Sodium (Lovenox) 40 mg SC 2100 [facility] Famotidine (Pepcid) 20 mg PO 2100 [facility] Last Admin: 07/03/19 19:31 Dose: 20 mg Fentanyl (Sublimaze) 25 mcg SLOW IVP Q2H PRN PRN Reason: Severe Pain (7-10) Fentanyl (Sublimaze) 50 mcg SLOW IVP Q2H PRN PRN Reason: Pain Glucagon (Glucagon) 1 mg IM PRN PRN PRN Reason: Hypoglycemia Dextrose/Water (D5w) 1,000 mls @ 0 mls/hr IV .Q0M PRN PRN Reason: Hypoglycemia Cefazolin Sodium/Dextrose 2 gm (/ Device) 50 mls @ 100 mls/hr IVPB Q8HR [facility] Stop: 07/04/19 21:00 Last Admin: 07/04/19 05:30 Dose: 50 mls Insulin Human Regular (Humulin R) 0 units SC .MILD SLIDING SCALE PRN PRN Reason: Mild Correctional Scale Last Admin: 07/03/19 16:43 Dose: 2 unit Metoprolol Tartrate (Lopressor) 50 mg PO BID [facility] Last Admin: 07/03/19 19:31 Dose: 50 mg Nitroglycerin (Nitrostat) 0.4 mg SL Q5MIN PRN PRN Reason: Chest Pain Ondansetron HCl (Zofran) 4 mg IVP Q6H PRN PRN Reason: Nausea/Vomiting Pioglitazone HCl (Actos) 45 mg PO QAM [facility] Senna/Docusate Sodium (Senokot S) 2 tab PO BID PRN PRN Reason: Constipation Sodium Chloride (Flush - Normal Saline) 10 ml IVF PRN PRN PRN Reason: Saline Flush Sodium Chloride (Flush - Normal Saline) 10 ml IVF Q12HR [facility] Last Admin: 07/03/19 19:38 Dose: Not Given Tramadol HCl (Ultram) 50 mg PO Q6H PRN PRN Reason: Pain Last Admin: 07/03/19 19:31 Dose: 50 mg Vital Signs & Weight: Vital Signs Temp Pulse Resp BP Pulse Ox 07/04/19 08:20 98.9 F 81 16 127/71 94 L 07/04/19 04:00 98.0 F 83 18 100/64 95 07/04/19 00:08 98.9 F 83 18 126/65 100 Weight 180 lb - Physical Exam General: alert & oriented x3 HEENT: mucus membranes moist Neck: supple neck Cardiac: regular rate and rhythm Lungs: clear to auscultation, decreased breath sounds Neuro: cranial nerve 2-12 intact Extremities: other: (right pedal pulses are present by doppler. The edema has decreased.) - Labs Result Diagrams: 07/04/19 06:15 07/04/19 06:15 - Assessment/Plan Assessment/Plan: 1. PVD with s/p stent in Rt MICHAEL, Rt Commond, Profunda, and Popliteal endarterectomy, and RSVG bypass from fem to infrapopliteal artery on 2019. - only symptom she has now was pain to Rt 3rd toe; diminished pulse to Rt posterior tibial but present by doppler; On Plavix and ASA; She is instructed not to bend her Rt knee to 90 degrees. 2. CAD - stable; on Metoprolol, ASA, and Statin 3. HTN - stable 4. DM type 2 5. CKD - stable 6. HLD - On Lipitor 80mg qd 7. Chronic anemia - stable 8. Tobacco abuse - strongly recommend smoking cessation MAR reviewed Pt. seen and eval. by me. I agree with the A/P by the PSYCHOLOGICAL OPERATIONS SPECIALIST.
[2019-07-04] MEDS ORDERED: Pioglitazone HCl 45 MG TAB PO SCH (09:00)
[2019-07-04] MEDS ORDERED: Aspirin 81 mg Enteric Coated Tablet PO SCH (09:00)
[2019-07-04] MEDS: Bupropion 150 MG SR TAB PO SCH (09:48)
[2019-07-04] MEDS: Metoprolol Tartrate 50 MG TAB PO SCH (09:49)
[2019-07-04 16:40] VITALS: BP 136/77; TEMP 99.2
[2019-07-04] MEDS ORDERED: Clopidogrel Bisulfate 75 MG TAB PO SCH (21:00)
[2019-07-04] MEDS ORDERED: Enoxaparin Sodium 40 MG/0.4 ML SYRINGE SC SCH (21:00)
== END 2019-07-04 17:27 | DRG 253 ==
LOC: CCL 05:59 → SURG A 14:16
PROVIDERS: ADMIT Internal Medicine Cardiovascular Disease; ATTEND Internal Medicine Cardiovascular Disease
PROC: 04CK0ZZ Extirpation of Matter from Right Femoral Artery, Open Approach (ICD-10-PCS; principal; 2019-07-02)
PROC: 04HL3DZ Insertion of Intraluminal Device into Left Femoral Artery, Percutaneous Approach (ICD-10-PCS; 2019-07-02)
DX: I70.221 Atherosclerosis of native arteries of extremities with rest pain, right leg (principal); I13.0 Hypertensive heart and chronic kidney disease with heart failure and stage 1 through stage 4 chronic kidney disease, or unspecified chronic kidney disease; I50.32 Chronic diastolic (congestive) heart failure; E11.22 Type 2 diabetes mellitus with diabetic chronic kidney disease; E78.00 Pure hypercholesterolemia, unspecified; F17.210 Nicotine dependence, cigarettes, uncomplicated; D63.1 Anemia in chronic kidney disease; N18.9 Chronic kidney disease, unspecified; E78.5 Hyperlipidemia, unspecified; I25.10 Atherosclerotic heart disease of native coronary artery without angina pectoris; Z88.2 Allergy status to sulfonamides; Z90.710 Acquired absence of both cervix and uterus; Z89.612 Acquired absence of left leg above knee; Z79.4 Long term (current) use of insulin; Z79.01 Long term (current) use of anticoagulants
CPT/HCPCS: 36140; 36200; 36245; 36252; 36415; 36416; 36430; 75630; 75710; 76000; 80048; 80053; 85025; 85610; 85730; 86850; 86900; 86901; 86921; 93005; 93010; C1769; C1876; J0360; J0690; J1100; J1642; J1644; J1815; J2001; J2250; J2270; J2405; J2704; J2720; J3010

== ENCOUNTER 2019-08-08 09:35 | Day surgery (SDC) | payer MEDICARE, MEDICAID ==
[2019-08-08] MEDS ORDERED: EPOETIN ALFA-EPBX (ESRD) 40,000 UNIT/ML VIAL ONE (09:41)
[2019-08-08] MEDS ORDERED: EPOETIN ALFA-EPBX (ESRD) 40,000 UNIT/ML VIAL SC SCH (10:00)
[2019-08-08 11:31] VITALS: BP 173/70; TEMP 99.1
== END 2019-08-08 11:31 | disposition home or self-care (01) ==
LOC: ONC/OP 09:35
PROVIDERS: ATTEND Internal Medicine Hematology & Oncology
DX: N18.9 Chronic kidney disease, unspecified (principal); D63.1 Anemia in chronic kidney disease; Z88.1 Allergy status to other antibiotic agents; Z88.2 Allergy status to sulfonamides
CPT/HCPCS: 96372; Q5105

== ENCOUNTER → 2019-08-22 | Day surgery (SDC) | payer MEDICARE, MEDICAID ==
[~2019-08-22] MED LIST changes: +EPOETIN ALFA-EPBX (ESRD) 40,000 UNIT/ML VIAL ONE
[2019-08-22 09:48] VITALS: BP 156/68; TEMP 98.5
== END ==
LOC: ONC/OP 09:33
PROVIDERS: ATTEND Internal Medicine Hematology & Oncology
DX: N18.9 Chronic kidney disease, unspecified (principal); D63.1 Anemia in chronic kidney disease; Z88.1 Allergy status to other antibiotic agents; Z88.2 Allergy status to sulfonamides
CPT/HCPCS: 96372; Q5105

== ENCOUNTER 2019-09-05 09:36 | Day surgery (SDC) | payer MEDICARE, MEDICAID ==
[2019-09-05] MEDS ORDERED: EPOETIN ALFA-EPBX (ESRD) 40,000 UNIT/ML VIAL ONE (09:38)
[2019-09-05 09:43] VITALS: BP 141/85; TEMP 98.9
== END 2019-09-05 09:44 | disposition home or self-care (01) ==
LOC: ONC/OP 09:36
PROVIDERS: ATTEND Internal Medicine Hematology & Oncology
DX: N18.9 Chronic kidney disease, unspecified (principal); D63.1 Anemia in chronic kidney disease; D51.3 Other dietary vitamin B12 deficiency anemia; Z88.1 Allergy status to other antibiotic agents; Z88.2 Allergy status to sulfonamides
CPT/HCPCS: 36415; 80048; 82607; 82728; 96372; Q5105

== ENCOUNTER 2019-09-19 09:04 | Day surgery (SDC) | payer MEDICARE, MEDICAID ==
[~2019-09-19 09:04] MED LIST changes: -EPOETIN ALFA-EPBX (ESRD) 40,000 UNIT/ML VIAL ONE
[2019-09-19 09:10] VITALS: BP 165/70; TEMP 98.6
[2019-09-19] MEDS ORDERED: EPOETIN ALFA-EPBX (ESRD) 40,000 UNIT/ML VIAL ONE (09:14)
== END 2019-09-19 09:15 | disposition home or self-care (01) ==
LOC: ONC/OP 09:04
PROVIDERS: ATTEND Internal Medicine Hematology & Oncology
DX: N18.9 Chronic kidney disease, unspecified (principal); D63.1 Anemia in chronic kidney disease; D51.3 Other dietary vitamin B12 deficiency anemia; Z88.1 Allergy status to other antibiotic agents; Z88.2 Allergy status to sulfonamides
CPT/HCPCS: 96372; Q5105

== ENCOUNTER 2019-10-17 08:59 | Day surgery (SDC) | payer MEDICARE, MEDICAID ==
[2019-10-17] MEDS ORDERED: EPOETIN ALFA-EPBX (ESRD) 40,000 UNIT/ML VIAL ONE (09:01)
[2019-10-17 09:12] VITALS: BP 130/62; TEMP 97.8
[2019-10-17] MEDS ORDERED: EPOETIN ALFA-EPBX (ESRD) 40,000 UNIT/ML VIAL SC SCH (09:30)
== END 2019-10-17 09:27 | disposition home or self-care (01) ==
LOC: ONC/OP 08:59
PROVIDERS: ATTEND Internal Medicine Hematology & Oncology
DX: N18.9 Chronic kidney disease, unspecified (principal); D63.1 Anemia in chronic kidney disease; D51.3 Other dietary vitamin B12 deficiency anemia; Z88.1 Allergy status to other antibiotic agents; Z88.2 Allergy status to sulfonamides
CPT/HCPCS: 96372; Q5105

== ENCOUNTER 2019-12-26 09:01 | Day surgery (SDC) | payer MEDICARE, MEDICAID ==
[2019-12-26 09:12] VITALS: BP 177/76; TEMP 98
[2019-12-26] MEDS ORDERED: EPOETIN ALFA-EPBX (ESRD) 40,000 UNIT/ML VIAL ONE (09:13)
[2019-12-26] MEDS ORDERED: EPOETIN ALFA-EPBX (ESRD) 40,000 UNIT/ML VIAL SC SCH (09:30)
== END 2019-12-26 09:16 | disposition home or self-care (01) ==
LOC: ONC/OP 09:01
PROVIDERS: ATTEND Internal Medicine Hematology & Oncology
DX: N18.9 Chronic kidney disease, unspecified (principal); D63.1 Anemia in chronic kidney disease; D51.3 Other dietary vitamin B12 deficiency anemia; Z88.1 Allergy status to other antibiotic agents; Z88.2 Allergy status to sulfonamides
CPT/HCPCS: 96372; Q5105

== ENCOUNTER 2020-01-14 09:31 | Outpatient (CLI) | payer MEDICARE, MEDICAID ==
--- NOTE | 2020-01-14 11:33 | CT ---
CT angiogram abdomen and pelvis with IV contrast and 3-D reconstructions CT angiogram bilateral lower extremities with runoff to the feet with IV contrast and 3-D reconstruct ions HISTORY: Peripheral vascular disease. Stents placed in arteries right lower extremity. Patient continues to ramos ve problems. COMPARISON: CTA abdomen and pelvis on 02/13/2018. FINDINGS: Minimal dependent bibasilar atelectasis is present. No pulmonary mass, nodule, or pleural effusion is evident. The liver, spleen, pancreas, bilateral adrenal gland, and bilateral kidneys demonstrate a normal CT a ppearance. There are calcifications seen in each kidney which are most suggestive of vascular calcifications as opposed to renal calculi. Urinary bladder is decompressed. There is evidence of prior hysterectomy. Loops of small bowel are normal in caliber. The appendix is visualized and filled with gas and normal in caliber. Small gastric diverticulum is again seen at the gastric fundus. Vascular calcifications are seen in the abdominal aorta without aneurysmal dilatation or evidence of an aortic dissection. There is atherosclerotic calcifications involving the celiac artery with at least mild narrowing seen proximally. There is now a superior mesenteric artery stent in place, but t he lumen of the stent is difficult to evaluate. Branches of the superior mesenteric artery just distal to the stent do demonstrate opacification. The origin of the TANVI is mostly obscured due to den se vascular calcifications involving the abdominal aorta. There are dense vascular calcifications involving each renal artery with at least moderate degree of narrowing involving the proximal right r enal artery. There is mild narrowing at the origin of the left renal artery. Bilateral common iliac artery stents are noted in place. Intraluminal portion of each stent is diffic ult to evaluate. Focal high-grade stenosis at the level of the distal portion of the left iliac artery stent is noted with significant atherosclerotic vascular calcifications in this region and inv olving the left internal iliac artery. There is also dense vascular calcifications involving the majority of the left external iliac artery. There are dense vascular calcifications involving the right internal iliac artery, and the lumen is u nable to be adequately evaluated. Vascular calcifications are seen involving the right external iliac artery with multifocal mild degrees of narrowing with probable moderate narrowing involving the mid right external iliac artery. Stent Lower extremities: Left lower extremity: There is evidence of xrnby-rab-ahva amputation left lower extremity at the leve l of the mid femoral diaphysis. There is occlusion of a left common femoral artery stent or graft, and the left superficial femoral artery is occluded.. There is reconstitution of the profunda femoral artery on the left. Disuse osteopenia left femur is seen. Right lower extremity: Right common femoral and profunda femoral arteries are patent. A right femoral popliteal artery bypass graft is present which is widely patent. Right superficial femoral artery is occluded. The distal right popliteal artery is not well assessed due to dense vascular calcificati ons present. There is inadequate opacification of the tibial peroneal vessels with very faint opacification of the anterior tibial and peroneal arteries. Left posterior tibial artery does not dem onstrate significant enhancement and may be occluded. No flow seen in the distal tibial peroneal vessels are in the dorsalis pedis artery. This could be a factor of timing of the bolus or secondary to low flow due to significant stenosis involving the distal popliteal artery and at the origin of the tibial peroneal trunk. Surgical clips and postoperative scarring are seen involving the medial aspect of the right lower ext remity. There is subcutaneous edema involving the right lower extremity. IMPRESSION: 1. Interval development of a left adrenal nodule which does demonstrate fat attenuation and probably represents an adrenal adenoma versus myelolipoma. 2. Dense atherosclerotic vascular calcifications. 3. Superior mesenteric artery stent with limited evaluation of the intraluminal portion of the stent. There is at least moderate narrowing involving the superior mesenteric artery immediately distal to the SMA stent. 4. Patent right femoral-popliteal artery bypass graft. Dense vascular calcifications are seen involvi ng the distal popliteal artery obscuring the lumen. There is only faint opacification of the tibial peroneal vessels. This could be a factor of timing of the contrast bolus versus more significant sten osis involving the distal popliteal artery and at the origin of the tibial peroneal vessels. 5. Bilateral common iliac artery stents which are probably patent. However, there is occlusion of the left external iliac artery and femoral artery. There is at least moderate narrowing involving the mid right external iliac artery.
[2020-01-14] MEDS ORDERED: Iopamidol-370 76% 500 ML 1 ML ONE (13:42)
== END 2020-01-14 09:32 | disposition home or self-care (01) ==
LOC: BICCT 09:31
PROVIDERS: ATTEND Thoracic Surgery (Cardiothoracic Vascular Surgery)
DX: I70.213 Atherosclerosis of native arteries of extremities with intermittent claudication, bilateral legs (principal); E27.8 Other specified disorders of adrenal gland; I74.5 Embolism and thrombosis of iliac artery; K55.1 Chronic vascular disorders of intestine; Z95.828 Presence of other vascular implants and grafts
CPT/HCPCS: 75635; Q9967

== ENCOUNTER 2020-02-10 09:10 | Day surgery (SDC) | payer MEDICARE, MEDICAID ==
[2020-02-10] MEDS ORDERED: EPOETIN ALFA-EPBX (ESRD) 40,000 UNIT/ML VIAL ONE (09:13)
[2020-02-10 09:21] VITALS: BP 182/86; TEMP 98.6
[2020-02-10] MEDS ORDERED: EPOETIN ALFA-EPBX (ESRD) 40,000 UNIT/ML VIAL SC SCH (09:30)
== END 2020-02-10 09:24 | disposition home or self-care (01) ==
LOC: ONC/OP 09:10
PROVIDERS: ATTEND Internal Medicine Hematology & Oncology
DX: N18.9 Chronic kidney disease, unspecified (principal); D63.1 Anemia in chronic kidney disease; D51.3 Other dietary vitamin B12 deficiency anemia; Z88.2 Allergy status to sulfonamides
CPT/HCPCS: 96372; Q5105

== ENCOUNTER 2020-03-30 09:10 | Day surgery (SDC) | payer MEDICARE, MEDICAID ==
[2020-03-30] MEDS ORDERED: EPOETIN ALFA-EPBX (ESRD) 40,000 UNIT/ML VIAL SC SCH (09:30)
== END 2020-03-30 09:46 | disposition home or self-care (01) ==
LOC: ONC/OP 09:10
PROVIDERS: ATTEND Internal Medicine Hematology & Oncology
DX: N18.9 Chronic kidney disease, unspecified (principal); D63.1 Anemia in chronic kidney disease; D51.3 Other dietary vitamin B12 deficiency anemia; Z88.2 Allergy status to sulfonamides
CPT/HCPCS: 96372; Q5105

== ENCOUNTER 2020-04-13 09:05 | Day surgery (SDC) | payer MEDICARE, MEDICAID ==
[2020-04-13] MEDS ORDERED: EPOETIN ALFA-EPBX (ESRD) 40,000 UNIT/ML VIAL SC SCH (09:15)
== END 2020-04-13 09:22 | disposition home or self-care (01) ==
LOC: ONC/OP 09:05
PROVIDERS: ATTEND Internal Medicine Hematology & Oncology
DX: N18.9 Chronic kidney disease, unspecified (principal); D63.1 Anemia in chronic kidney disease; D50.0 Iron deficiency anemia secondary to blood loss (chronic); Z88.2 Allergy status to sulfonamides
CPT/HCPCS: 96372; Q5105

== ENCOUNTER 2020-09-29 11:35 | Outpatient (CLI) | payer MEDICARE, MEDICAID | END 2020-09-29 11:36 | disposition home or self-care (01) | LOC: BICRAD 11:35 | PROVIDERS: ATTEND Physician Assistant Medical | DX: R10.33 Periumbilical pain (principal); K59.00 Constipation, unspecified; R11.2 Nausea with vomiting, unspecified | CPT/HCPCS: 74019 ==

== ENCOUNTER 2021-03-30 14:09 | Inpatient (IN) | payer MEDICARE, MEDICAID ==
[2021-03-30] MEDS ORDERED: Nitroglycerin 2% Ointment 1 INCH/1 GM Packet ONE (14:45)
[2021-03-30] MEDS ORDERED: Nitroglycerin 0.4 MG TAB 1 EACH ONE (14:45)
[2021-03-30 15:07] LABS: Actual Bicarbonate (HCO3v) 19 mEq/L (22-28); Analyzer IN Cardio ER; Base Excess -5.8 mEq/L (-2.0 to +3.0); Calcium, Ionized (venous) 1.04 mmol/L (1.16-1.32); Chloride (VBG) 113 mmol/L (98-106); Hemoglobin (Hb) 8.4 g/dL (11.7-16.0); pH (venous) 7.35 (7.32-7.43)
[2021-03-30] MEDS ORDERED: Furosemide 40 MG/4 ML VIAL ONE (15:18)
[2021-03-30 15:20] LABS: ALT (SGPT) 12 U/L (8-55); AST (SGOT) 11 U/L (5-34); Albumin 3.3 g/dL (3.5-5.0); Alkaline Phosphatase 95 U/L (40-110); Anion Gap 15 mmol/L (10-20); BUN (Urea Nitrogen) 23 mg/dL (9.8-20.1); Bilirubin, Total 0.6 mg/dL (0.2-1.2); Calc. Creatinine Clearance 0 mL/min (70-130); Calcium 8.7 mg/dL (7.8-10.44); Carbon Dioxide 19 mmol/L (22-29); Chloride 111 mmol/L (98-107); Globulin 3.7 g/dL (2.4-3.5); Glucose 167 mg/dL (70-105); Potassium 3.8 mmol/L (3.5-5.1); Sodium 141 mmol/L (136-145)
[2021-03-30 15:23] LABS: #Eosinphils 0.1 thou/uL (0.0-0.7); #Lymphocytes 1.1 thou/uL (1.20-3.40); #Monocytes 0.3 thou/uL (0.11-0.59); #Neutrophils 5.1 thou/uL (1.40-6.50); %Eosinophils 1.2 % (0.0-10.0); %Monocytes 4.4 % (0.0-10.0); %Neutrophils 77.3 % (42.0-75.0); Anisocytosis SLIGHT = 6-15 cells (100X) (0-5/hpf); Hemoglobin 7.8 g/dL (12.0-16.0); MDiff Complete? YES; Macrocytosis SLIGHT = 6-15 cells (100X) (0-5/hpf); Mean Corpuscular HGB CONC 31.4 g/dL (32.0-36.0); Mean Platelet Volume 6.9 fL (7.4-10.4); Platelet Count 239 thou/uL (130-400); Platelet Morphology Comment Appears Adequate; Polychromasia SLIGHT = 2-3 cells (100X) (0-2/hpf); RBC Distribution Width 17.4 % (11.5-14.5); Red Blood Cell (RBC) Count 2.28 mill/uL (4.20-5.40); Target Cells SLIGHT = 2-5 cells (100X) (0-1/hpf); White Blood Cell (WBC) Count 6.7 thou/uL (4.8-10.8)
[2021-03-30 16:48] LABS: SARS-CoV-2 NAA Rapid Test Not Detected (NotDetected)
[2021-03-30] MEDS ORDERED: Azithromycin 500 MG VIAL ONE (17:04)
[2021-03-30] MEDS ORDERED: cefTRIAXone\\ROCEPHIN 2 GM VIAL ONE (17:04)
[2021-03-30 18:49] LABS: Troponin I 0.024 ng/mL (< 0.028)
[2021-03-30] MEDS ORDERED: Bisacodyl 5 MG TAB PO PRN (20:13)
[2021-03-30] MEDS ORDERED: HYDROcodone/Acetaminophen 5/325 mg Tablet PO PRN (20:13)
[2021-03-30] MEDS ORDERED: Ondansetron PF 4 MG/2 ML Vial IVP PRN (20:13)
[2021-03-30] MEDS ORDERED: Guaifenesin DM 100-10/5 ML UDCUP PO PRN (20:13)
[2021-03-30] MEDS ORDERED: HYDROcodone/Acetaminophen 7.5/325 mg Tablet PO PRN (20:13)
[2021-03-30] MEDS ORDERED: Dextrose 50% Abboject 50 ML SYRINGE SLOW IVP PRN (20:25)
[2021-03-30] MEDS ORDERED: HumaLOG 300 UNITS/3 ML VIAL SC PRN (20:25)
[2021-03-30] MEDS ORDERED: Dextrose 5% in Water 1,000 ML IV PRN (20:25)
[2021-03-30] MEDS ORDERED: Furosemide 20 MG/2 ML VIAL SLOW IVP SCH (21:00)
[2021-03-30] MEDS ORDERED: Famotidine/PF 20 mg/2ml Vial SLOW IVP SCH (21:00)
[2021-03-30 21:43] LABS: Troponin I 0.014 ng/mL (< 0.028)
[2021-03-30] MEDS ORDERED: Nitroglycerin 0.4 MG TAB (25 Tab Bottle) SL PRN (22:29)
[2021-03-30] MEDS: Metoprolol Tartrate 50 MG TAB PO SCH ×2 (22:49→22:56)
[2021-03-30] MEDS: Senokot S 8.6-50 MG TAB PO SCH (22:49)
[2021-03-30] MEDS: Atorvastatin Calcium 40 MG TAB PO SCH (22:49)
[2021-03-30] MEDS: Furosemide 20 MG/2 ML VIAL SLOW IVP SCH (22:50)
[2021-03-30] MEDS: Nicotine 21 MG PATCH TD SCH (23:09)
[2021-03-30 23:15] VITALS: BMI 33.1
[2021-03-31 01:16] LABS: Troponin I Less than 0.010 ng/mL (< 0.028)
[2021-03-31 06:23] LABS: #Eosinphils 0.1 thou/uL (0.0-0.7); #Lymphocytes 0.6 thou/uL (1.20-3.40); #Monocytes 0.3 thou/uL (0.11-0.59); #Neutrophils 4.8 thou/uL (1.40-6.50); %Eosinophils 1.3 % (0.0-10.0); %Lymphocytes 9.8 % (21.0-51.0); %Monocytes 4.9 % (0.0-10.0); Hemoglobin 7.6 g/dL (12.0-16.0); Mean Corpuscular HGB CONC 31.7 g/dL (32.0-36.0); Mean Corpuscular Hemoglobin 34.6 pg (27.0-31.0); Platelet Count 216 thou/uL (130-400); RBC Distribution Width 17.2 % (11.5-14.5); Red Blood Cell (RBC) Count 2.19 mill/uL (4.20-5.40); White Blood Cell (WBC) Count 5.8 thou/uL (4.8-10.8)
[2021-03-31 06:55] LABS: ALT (SGPT) 12 U/L (8-55); AST (SGOT) 10 U/L (5-34); Albumin 3.2 g/dL (3.5-5.0); Alkaline Phosphatase 90 U/L (40-110); Anion Gap 11 mmol/L (10-20); BUN (Urea Nitrogen) 22 mg/dL (9.8-20.1); Bilirubin, Total 0.4 mg/dL (0.2-1.2); Calc. Creatinine Clearance 52 mL/min (70-130); Calcium 8.6 mg/dL (7.8-10.44); Carbon Dioxide 23 mmol/L (22-29); Cardiac Risk 3.4 (Less than 4.5); Chloride 112 mmol/L (98-107); Cholesterol 88 mg/dl (< 200 Desired); Globulin 3.5 g/dL (2.4-3.5); Glucose 96 mg/dL (70-105); HDL Cholesterol 26 mg/dL (>60 Neg Risk); LDL Cholesterol, Calculated 50 mg/dL; Potassium 4.4 mmol/L (3.5-5.1); Protein, Total 6.7 g/dL (6.0-8.3); Sodium 142 mmol/L (136-145); Triglycerides 61 mg/dL (Less than 150)
[2021-03-31] MEDS: Ferrous Sulfate 325 MG TAB PO SCH (10:00)
[2021-03-31] MEDS: Acetaminophen 325 MG TAB PO PRN (10:00)
[2021-03-31] MEDS: Senokot S 8.6-50 MG TAB PO SCH ×2 (10:02→20:48)
[2021-03-31] MEDS ORDERED: ALPRAZolam 0.25 MG TAB PO SCH ×2 (11:00→21:00)
[2021-03-31] MEDS: cefTRIAXone\\ROCEPHIN 2 GM in Sodium Chloride 0.9% 100 ML IVPB SCH (17:01)
[2021-03-31] MEDS: Furosemide 20 MG/2 ML VIAL SLOW IVP SCH (17:58)
[2021-03-31] MEDS: Azithromycin 500 MG in Sodium Chloride 0.9% 250 ML 250 ML IVPB SCH (20:48)
[2021-03-31] MEDS: Heparin 5,000 UNITS/ML VIAL SC SCH (20:49)
[2021-03-31] MEDS: ALPRAZolam 0.25 MG TAB PO SCH (20:49)
[2021-03-31] MEDS: Atorvastatin Calcium 40 MG TAB PO SCH (20:49)
[2021-03-31] MEDS: Nicotine 21 MG PATCH TD SCH (22:06)
[2021-04-01] MEDS: Furosemide 20 MG/2 ML VIAL SLOW IVP SCH ×2 (05:35→17:27)
[2021-04-01] MEDS: Senokot S 8.6-50 MG TAB PO SCH ×2 (09:47→20:54)
[2021-04-01] MEDS: predniSONE 20 MG TAB PO SCH (09:47)
[2021-04-01] MEDS: Ferrous Sulfate 325 MG TAB PO SCH (09:47)
[2021-04-01] MEDS: ALPRAZolam 0.25 MG TAB PO SCH ×2 (09:47→20:52)
[2021-04-01] MEDS: Heparin 5,000 UNITS/ML VIAL SC SCH ×2 (09:47→20:55)
[2021-04-01] MEDS: Acetaminophen 325 MG TAB PO PRN (11:44)
[2021-04-01 14:00] LABS: #Eosinphils 0.1 thou/uL (0.0-0.7); #Lymphocytes 0.5 thou/uL (1.20-3.40); #Monocytes 0.1 thou/uL (0.11-0.59); #Neutrophils 4.4 thou/uL (1.40-6.50); %Eosinophils 1.6 % (0.0-10.0); %Lymphocytes 9.3 % (21.0-51.0); %Monocytes 2.5 % (0.0-10.0); %Neutrophils 86.7 % (42.0-75.0); Hemoglobin 7.5 g/dL (12.0-16.0); Mean Corpuscular HGB CONC 31.7 g/dL (32.0-36.0); Mean Corpuscular Hemoglobin 34.6 pg (27.0-31.0); Mean Platelet Volume 7.1 fL (7.4-10.4); Platelet Count 209 thou/uL (130-400); RBC Distribution Width 17.2 % (11.5-14.5); Red Blood Cell (RBC) Count 2.16 mill/uL (4.20-5.40); White Blood Cell (WBC) Count 5.1 thou/uL (4.8-10.8)
[2021-04-01 14:29] LABS: Anion Gap 13 mmol/L (10-20); BUN (Urea Nitrogen) 21 mg/dL (9.8-20.1); Calc. Creatinine Clearance 52 mL/min (70-130); Calcium 8.6 mg/dL (7.8-10.44); Carbon Dioxide 20 mmol/L (22-29); Chloride 111 mmol/L (98-107); Glucose 126 mg/dL (70-105); Potassium 4.2 mmol/L (3.5-5.1); Sodium 140 mmol/L (136-145)
[2021-04-01] MEDS: cefTRIAXone\\ROCEPHIN 2 GM in Sodium Chloride 0.9% 100 ML IVPB SCH (16:26)
[2021-04-01] MEDS: HumaLOG 300 UNITS/3 ML VIAL SC PRN (17:27)
[2021-04-01] MEDS: Azithromycin 500 MG in Sodium Chloride 0.9% 250 ML 250 ML IVPB SCH (17:42)
[2021-04-01] MEDS: Atorvastatin Calcium 40 MG TAB PO SCH (20:53)
[2021-04-01] MEDS: Nicotine 21 MG PATCH TD SCH (21:59)
[2021-04-01 23:56] LABS: Hemoglobin 8.1 g/dL (12.0-16.0)
[2021-04-02 05:35] LABS: #Lymphocytes 0.5 thou/uL (1.20-3.40); #Monocytes 0.2 thou/uL (0.11-0.59); #Neutrophils 4.9 thou/uL (1.40-6.50); %Basophils 0.2 % (0.0-1.0); %Eosinophils 0.4 % (0.0-10.0); %Lymphocytes 9.3 % (21.0-51.0); %Monocytes 3.9 % (0.0-10.0); %Neutrophils 86.2 % (42.0-75.0); Mean Corpuscular HGB CONC 31.6 g/dL (32.0-36.0); Mean Corpuscular Hemoglobin 33.8 pg (27.0-31.0); Mean Platelet Volume 7.1 fL (7.4-10.4); Platelet Count 202 thou/uL (130-400); RBC Distribution Width 17.3 % (11.5-14.5); Red Blood Cell (RBC) Count 2.38 mill/uL (4.20-5.40); White Blood Cell (WBC) Count 5.6 thou/uL (4.8-10.8)
[2021-04-02 05:54] LABS: Anion Gap 14 mmol/L (10-20); BUN (Urea Nitrogen) 22 mg/dL (9.8-20.1); Calc. Creatinine Clearance 62 mL/min (70-130); Calcium 8.5 mg/dL (7.8-10.44); Carbon Dioxide 19 mmol/L (22-29); Chloride 107 mmol/L (98-107); Glucose 121 mg/dL (70-105); Potassium 4.2 mmol/L (3.5-5.1); Sodium 136 mmol/L (136-145)
[2021-04-02] MEDS: Furosemide 20 MG/2 ML VIAL SLOW IVP SCH (06:00)
[2021-04-02] MEDS: Senokot S 8.6-50 MG TAB PO SCH ×2 (07:48→22:25)
[2021-04-02] MEDS: ALPRAZolam 0.25 MG TAB PO SCH ×2 (07:48→22:24)
[2021-04-02] MEDS: Heparin 5,000 UNITS/ML VIAL SC SCH ×2 (07:48→22:24)
[2021-04-02] MEDS: predniSONE 20 MG TAB PO SCH (07:48)
[2021-04-02] MEDS: Ferrous Sulfate 325 MG TAB PO SCH ×2 (07:49→22:22)
[2021-04-02] MEDS ORDERED: Furosemide 40 MG TAB PO SCH (08:15)
[2021-04-02] MEDS: Metoprolol Tartrate 25 MG TAB PO SCH ×2 (08:48→22:23)
[2021-04-02 08:56] LABS: Reticulocyte Count 6.2 % (0.5-1.5)
[2021-04-02 09:42] LABS: Ferritin 144.76 ng/mL (10-291)
[2021-04-02] MEDS: Mometasone 200 MCG/Formoterol 5 MCG 120 PUFF INHALER INH SCH ×2 (10:02→18:55)
[2021-04-02] MEDS: HumaLOG 300 UNITS/3 ML VIAL SC PRN ×2 (11:16→18:19)
[2021-04-02] MEDS ORDERED: Folic Acid 1 MG TAB PO SCH (12:30)
[2021-04-02] MEDS: cefTRIAXone\\ROCEPHIN 2 GM in Sodium Chloride 0.9% 100 ML IVPB SCH (15:23)
[2021-04-02] MEDS: Azithromycin 500 MG in Sodium Chloride 0.9% 250 ML 250 ML IVPB SCH (18:47)
[2021-04-02] MEDS: Atorvastatin Calcium 40 MG TAB PO SCH (22:22)
[2021-04-02] MEDS: Nicotine 21 MG PATCH TD SCH (22:25)
[2021-04-03 05:03] LABS: #Lymphocytes 0.8 thou/uL (1.20-3.40); #Monocytes 0.4 thou/uL (0.11-0.59); %Basophils 0.6 % (0.0-1.0); %Eosinophils 0.1 % (0.0-10.0); %Lymphocytes 12.3 % (21.0-51.0); %Monocytes 6.5 % (0.0-10.0); %Neutrophils 80.6 % (42.0-75.0); Hemoglobin 7.7 g/dL (12.0-16.0); Mean Corpuscular HGB CONC 31.6 g/dL (32.0-36.0); Mean Corpuscular Hemoglobin 33.9 pg (27.0-31.0); Mean Platelet Volume 7.1 fL (7.4-10.4); Platelet Count 194 thou/uL (130-400); Red Blood Cell (RBC) Count 2.27 mill/uL (4.20-5.40); White Blood Cell (WBC) Count 6.2 thou/uL (4.8-10.8)
[2021-04-03 05:20] LABS: Anion Gap 13 mmol/L (10-20); BUN (Urea Nitrogen) 24 mg/dL (9.8-20.1); Calc. Creatinine Clearance 67 mL/min (70-130); Calcium 8.3 mg/dL (7.8-10.44); Carbon Dioxide 20 mmol/L (22-29); Chloride 109 mmol/L (98-107); Glucose 98 mg/dL (70-105); Potassium 3.9 mmol/L (3.5-5.1); Sodium 138 mmol/L (136-145)
[2021-04-03] MEDS: Mometasone 200 MCG/Formoterol 5 MCG 120 PUFF INHALER INH SCH ×2 (07:04→19:36)
[2021-04-03] MEDS: Ferrous Sulfate 325 MG TAB PO SCH ×2 (09:36→21:07)
[2021-04-03] MEDS: ALPRAZolam 0.25 MG TAB PO SCH ×2 (09:36→21:07)
[2021-04-03] MEDS: Metoprolol Tartrate 25 MG TAB PO SCH ×2 (09:36→21:07)
[2021-04-03] MEDS: Senokot S 8.6-50 MG TAB PO SCH ×2 (09:36→21:07)
[2021-04-03] MEDS: Furosemide 40 MG TAB PO SCH (09:37)
[2021-04-03] MEDS: Heparin 5,000 UNITS/ML VIAL SC SCH ×2 (09:37→21:08)
[2021-04-03] MEDS: Folic Acid 1 MG TAB PO SCH (09:37)
[2021-04-03] MEDS: predniSONE 20 MG TAB PO SCH (09:37)
[2021-04-03] MEDS: cefTRIAXone\\ROCEPHIN 2 GM in Sodium Chloride 0.9% 100 ML IVPB SCH (16:43)
[2021-04-03] MEDS: Azithromycin 500 MG in Sodium Chloride 0.9% 250 ML 250 ML IVPB SCH (18:26)
[2021-04-03] MEDS: Atorvastatin Calcium 40 MG TAB PO SCH (21:07)
[2021-04-03] MEDS: Nicotine 21 MG PATCH TD SCH (21:08)
[2021-04-04 05:20] LABS: #Lymphocytes 0.7 thou/uL (1.20-3.40); #Monocytes 0.4 thou/uL (0.11-0.59); #Neutrophils 4.8 thou/uL (1.40-6.50); %Basophils 0.1 % (0.0-1.0); %Eosinophils 0.3 % (0.0-10.0); %Lymphocytes 11.9 % (21.0-51.0); %Monocytes 6.2 % (0.0-10.0); %Neutrophils 81.6 % (42.0-75.0); Hemoglobin 8.2 g/dL (12.0-16.0); Mean Corpuscular HGB CONC 32.7 g/dL (32.0-36.0); Mean Corpuscular Hemoglobin 34.7 pg (27.0-31.0); Platelet Count 194 thou/uL (130-400); RBC Distribution Width 16.8 % (11.5-14.5); Red Blood Cell (RBC) Count 2.36 mill/uL (4.20-5.40); White Blood Cell (WBC) Count 5.9 thou/uL (4.8-10.8)
[2021-04-04 05:43] LABS: Anion Gap 13 mmol/L (10-20); BUN (Urea Nitrogen) 26 mg/dL (9.8-20.1); Calc. Creatinine Clearance 70 mL/min (70-130); Calcium 8.2 mg/dL (7.8-10.44); Carbon Dioxide 21 mmol/L (22-29); Chloride 109 mmol/L (98-107); Glucose 88 mg/dL (70-105); Sodium 139 mmol/L (136-145)
[2021-04-04] MEDS: predniSONE 20 MG TAB PO SCH (08:32)
[2021-04-04] MEDS: Metoprolol Tartrate 25 MG TAB PO SCH (08:32)
[2021-04-04] MEDS: Senokot S 8.6-50 MG TAB PO SCH (08:32)
[2021-04-04] MEDS: Furosemide 40 MG TAB PO SCH (08:32)
[2021-04-04] MEDS: Ferrous Sulfate 325 MG TAB PO SCH (08:33)
[2021-04-04] MEDS: ALPRAZolam 0.25 MG TAB PO SCH (08:33)
[2021-04-04] MEDS: Folic Acid 1 MG TAB PO SCH (08:33)
[2021-04-04] MEDS: Heparin 5,000 UNITS/ML VIAL SC SCH (08:33)
[2021-04-04 10:03] VITALS: BP 142/75; TEMP 98
[2021-04-04] MEDS: Mometasone 200 MCG/Formoterol 5 MCG 120 PUFF INHALER INH SCH (11:37)
[2021-04-04] MEDS ORDERED: Azithromycin 250 MG TAB PO SCH (18:00)
[2021-04-04 23:08] LABS: L.pneumophilia Abs <0.91 OD ratio (0.00-0.90); Mycoplasma pneumoniae IgG AB 1088 U/mL (0-99); Mycoplasma pneumoniae IgM AB Less than 770 U/mL (0-769)
== END 2021-04-04 12:56 | disposition home or self-care (01) | DRG 193 ==
LOC: ERS 14:09 → ERHOLD 15:59 → 2NO 22:35
PROVIDERS: ADMIT Internal Medicine; ATTEND Family Medicine
DX: J18.9 Pneumonia, unspecified organism (principal); I50.33 Acute on chronic diastolic (congestive) heart failure; J96.01 Acute respiratory failure with hypoxia; I13.0 Hypertensive heart and chronic kidney disease with heart failure and stage 1 through stage 4 chronic kidney disease, or unspecified chronic kidney disease; J44.0 Chronic obstructive pulmonary disease with (acute) lower respiratory infection; Z20.822 Contact with and (suspected) exposure to COVID-19; F17.210 Nicotine dependence, cigarettes, uncomplicated; N18.9 Chronic kidney disease, unspecified; E78.00 Pure hypercholesterolemia, unspecified; E11.22 Type 2 diabetes mellitus with diabetic chronic kidney disease; E11.65 Type 2 diabetes mellitus with hyperglycemia; E11.51 Type 2 diabetes mellitus with diabetic peripheral angiopathy without gangrene; E78.5 Hyperlipidemia, unspecified; K21.9 Gastro-esophageal reflux disease without esophagitis; I25.10 Atherosclerotic heart disease of native coronary artery without angina pectoris; D63.1 Anemia in chronic kidney disease; Z90.710 Acquired absence of both cervix and uterus; Z89.612 Acquired absence of left leg above knee; Z88.1 Allergy status to other antibiotic agents; Z88.2 Allergy status to sulfonamides; Z79.01 Long term (current) use of anticoagulants; Z79.82 Long term (current) use of aspirin; Z79.899 Other long term (current) drug therapy; I25.2 Old myocardial infarction; Z98.61 Coronary angioplasty status
CPT/HCPCS: 0240U; 36415; 36416; 36430; 71045; 71275; 80048; 80053; 80061; 82607; 82728; 82746; 82805; 83036; 83540; 83880; 84145; 84484; 85025; 85046; 85379; 86713; 86850; 86900; 86901; 87040; 87633; 93005; 93306; 96365; 96375; J0456; J0696; J1644; J1815; J1940; J3490; J7050; J7512; P9016; S0028

== ENCOUNTER 2021-04-15 09:12 | Inpatient (IN) | payer MEDICARE, MEDICAID ==
[2021-04-15 10:21] LABS: #Lymphocytes 0.5 thou/uL (1.20-3.40); #Monocytes 0.1 thou/uL (0.11-0.59); #Neutrophils 3.5 thou/uL (1.40-6.50); %Eosinophils 0.5 % (0.0-10.0); %Lymphocytes 12.5 % (21.0-51.0); %Monocytes 2.1 % (0.0-10.0); Hemoglobin 7.1 g/dL (12.0-16.0); Mean Corpuscular HGB CONC 31.1 g/dL (32.0-36.0); Mean Corpuscular Hemoglobin 32.7 pg (27.0-31.0); Mean Platelet Volume 8.5 fL (7.4-10.4); Platelet Count 171 thou/uL (130-400); RBC Distribution Width 16.7 % (11.5-14.5); Red Blood Cell (RBC) Count 2.18 mill/uL (4.20-5.40); White Blood Cell (WBC) Count 4.1 thou/uL (4.8-10.8)
[2021-04-15 10:47] LABS: ALT (SGPT) 132 U/L (8-55); AST (SGOT) 261 U/L (5-34); Albumin 3.2 g/dL (3.5-5.0); Anion Gap 19 mmol/L (10-20); BUN (Urea Nitrogen) 53 mg/dL (9.8-20.1); Bilirubin, Total 1.7 mg/dL (0.2-1.2); Calc. Creatinine Clearance 0 mL/min (70-130); Calcium 7.6 mg/dL (7.8-10.44); Carbon Dioxide 17 mmol/L (22-29); Chloride 101 mmol/L (98-107); Globulin 3.5 g/dL (2.4-3.5); Glucose 102 mg/dL (70-105); Potassium 4.9 mmol/L (3.5-5.1); Protein, Total 6.7 g/dL (6.0-8.3); Sodium 132 mmol/L (136-145)
[2021-04-15 10:53] LABS: SARS-CoV-2 NAA Rapid Test DETECTED (NotDetected)
[2021-04-15 10:58] LABS: Alkaline Phosphatase 125 U/L (40-110)
[2021-04-15 11:04] LABS: CKMB 1.3 ng/mL (0-6.6)
[2021-04-15] MEDS ORDERED: Acetaminophen 325 MG TAB PO PRN (12:59)
[2021-04-15] MEDS ORDERED: Furosemide 40 MG/4 ML VIAL SLOW IVP SCH (13:00)
[2021-04-15] MEDS ORDERED: Aspirin Chewable 81 MG TAB ONE (13:25)
[2021-04-15] MEDS ORDERED: Metoclopramide HCl 10 MG/2 ML VIAL IVP PRN (13:26)
[2021-04-15] MEDS ORDERED: guaiFENesin 200 MG TAB PO PRN (13:26)
[2021-04-15 13:28] LABS: Troponin I 0.204 ng/mL (< 0.028)
[2021-04-15 14:53] LABS: Troponin I 0.214 ng/mL (< 0.028)
[2021-04-15] MEDS ORDERED: Dexamethasone 4 mg/ml Vial SLOW IVP SCH (17:00)
[2021-04-15 17:18] LABS: Bilirubin Negative (Negative); Blood, Urine Negative (Negative); Clarity Clear (Clear); Glucose, Urine (Dipstick) Negative (Negative); Ketone, Urine Negative (Negative); Leukocyte Negative (Negative); Nitrite Negative (Negative); Protein, Urine (Dipstick) Negative (Neg-Trace)
[2021-04-15 17:26] LABS: RBC/HPF 0-3 HPF (0-3); Squamous Epithelial 0-3 HPF (0-3); Urine Culture Reflex No No; WBC/HPF 0-3 HPF (0-3)
[2021-04-15] MEDS ORDERED: Furosemide 40 MG/4 ML VIAL ONE (17:40)
[2021-04-15] MEDS ORDERED: Dexamethasone 10 MG/ML VIAL ONE (17:40)
[2021-04-15] MEDS: Dexamethasone 10 MG/ML VIAL SLOW IVP SCH (17:50)
[2021-04-15] MEDS ORDERED: Amiodarone 450 MG in Dextrose 5% in Water 250 ML IVPB SCH (19:00)
[2021-04-15 19:18] LABS: Anion Gap 17 mmol/L (10-20); BUN (Urea Nitrogen) 58 mg/dL (9.8-20.1); Calc. Creatinine Clearance 0 mL/min (70-130); Calcium 7.6 mg/dL (7.8-10.44); Carbon Dioxide 22 mmol/L (22-29); Chloride 102 mmol/L (98-107); Glucose 158 mg/dL (70-105); Magnesium 2.2 mg/dL (1.6-2.6); Potassium 3.7 mmol/L (3.5-5.1); Sodium 137 mmol/L (136-145)
[2021-04-15] MEDS ORDERED: Potassium Chloride 20 MEQ TAB PO SCH (19:45)
[2021-04-15 19:51] LABS: Troponin I 0.279 ng/mL (< 0.028)
[2021-04-15] MEDS: Atorvastatin Calcium 40 MG TAB PO SCH (21:55)
[2021-04-15] MEDS: Metoprolol Tartrate 25 MG TAB PO SCH (21:55)
[2021-04-15] MEDS: ALPRAZolam 0.25 MG TAB PO PRN (22:26)
[2021-04-15 22:27] LABS: Troponin I 0.281 ng/mL (< 0.028)
[2021-04-16 01:30] LABS: Troponin I 0.222 ng/mL (< 0.028)
[2021-04-16 04:13] LABS: #Lymphocytes 0.3 thou/uL (1.20-3.40); #Monocytes 0.1 thou/uL (0.11-0.59); #Neutrophils 3.9 thou/uL (1.40-6.50); %Eosinophils 0.4 % (0.0-10.0); %Lymphocytes 5.9 % (21.0-51.0); %Monocytes 1.4 % (0.0-10.0); %Neutrophils 92.3 % (42.0-75.0); Hemoglobin 7.6 g/dL (12.0-16.0); Mean Corpuscular HGB CONC 31.1 g/dL (32.0-36.0); Mean Corpuscular Hemoglobin 32.3 pg (27.0-31.0); Mean Platelet Volume 7.9 fL (7.4-10.4); Platelet Count 155 thou/uL (130-400); RBC Distribution Width 16.9 % (11.5-14.5); Red Blood Cell (RBC) Count 2.34 mill/uL (4.20-5.40); White Blood Cell (WBC) Count 4.3 thou/uL (4.8-10.8)
[2021-04-16 04:36] LABS: Anion Gap 19 mmol/L (10-20); BUN (Urea Nitrogen) 50 mg/dL (9.8-20.1); CRP (Inflammatory) 31.05 mg/dL (= or < 0.5); Calc. Creatinine Clearance 0 mL/min (70-130); Calcium 7.8 mg/dL (7.8-10.44); Carbon Dioxide 19 mmol/L (22-29); Chloride 103 mmol/L (98-107); Glucose 196 mg/dL (70-105); Potassium 4.4 mmol/L (3.5-5.1); Sodium 137 mmol/L (136-145)
[2021-04-16 04:43] LABS: ALT (SGPT) 361 U/L (8-55); AST (SGOT) 800 U/L (5-34); Albumin 3.3 g/dL (3.5-5.0); Alkaline Phosphatase 166 U/L (40-110); Bilirubin, Direct 0.7 mg/dL (0.1-0.3); Protein, Total 6.7 g/dL (6.0-8.3)
[2021-04-16] MEDS: Dexamethasone 10 MG/ML VIAL SLOW IVP SCH ×2 (04:58→17:16)
[2021-04-16] MEDS: Furosemide 40 MG/4 ML VIAL SLOW IVP SCH ×2 (04:58→14:17)
[2021-04-16] MEDS: Mometasone 200 MCG/Formoterol 5 MCG 120 PUFF INHALER INH SCH ×3 (07:49→17:17)
[2021-04-16 09:34] VITALS: BMI 29.2
[2021-04-16] MEDS: Ferrous Sulfate 325 MG TAB PO SCH (09:35)
[2021-04-16] MEDS: Clopidogrel Bisulfate 75 MG TAB PO SCH (09:36)
[2021-04-16] MEDS: Enoxaparin Sodium 40 MG/0.4 ML SYRINGE SC SCH (09:36)
[2021-04-16] MEDS: Aspirin 81 mg Enteric Coated Tablet PO SCH (09:36)
[2021-04-16] MEDS: Metoprolol Tartrate 25 MG TAB PO SCH ×2 (09:36→21:05)
[2021-04-16] MEDS ORDERED: HumaLOG 300 UNITS/3 ML VIAL SC PRN (12:00)
[2021-04-16] MEDS ORDERED: Dextrose 5% in Water 1,000 ML IV PRN (12:00)
[2021-04-16] MEDS ORDERED: Dextrose 50% Abboject 50 ML SYRINGE IVP PRN (12:00)
[2021-04-16] MEDS: HumaLOG 300 UNITS/3 ML VIAL SC PRN ×2 (17:15→21:07)
[2021-04-16] MEDS: Albumin 25% 25 GM/100 ML BOT IVPB SCH (17:16)
[2021-04-16] MEDS: Atorvastatin Calcium 40 MG TAB PO SCH (21:05)
[2021-04-16] MEDS: Albuterol 200 PUFF (6.7GM INHALER) INH SCH (21:06)
[2021-04-16] MEDS: Nicotine 21 MG PATCH TOP SCH (21:06)
[2021-04-17] MEDS: Albumin 25% 25 GM/100 ML BOT IVPB SCH ×3 (01:01→12:39)
[2021-04-17] MEDS: Albuterol 200 PUFF (6.7GM INHALER) INH SCH ×6 (02:12→22:00)
[2021-04-17 04:20] LABS: #Lymphocytes 0.4 thou/uL (1.20-3.40); #Monocytes 0.1 thou/uL (0.11-0.59); #Neutrophils 6.1 thou/uL (1.40-6.50); %Basophils 0.1 % (0.0-1.0); %Eosinophils 0.3 % (0.0-10.0); %Monocytes 0.8 % (0.0-10.0); %Neutrophils 92.8 % (42.0-75.0); Hemoglobin 7.1 g/dL (12.0-16.0); Mean Corpuscular Hemoglobin 32.2 pg (27.0-31.0); Platelet Count 134 thou/uL (130-400); RBC Distribution Width 16.8 % (11.5-14.5); Red Blood Cell (RBC) Count 2.21 mill/uL (4.20-5.40); White Blood Cell (WBC) Count 6.6 thou/uL (4.8-10.8)
[2021-04-17 04:37] LABS: ALT (SGPT) 533 U/L (8-55); AST (SGOT) 817 U/L (5-34); Albumin 3.9 g/dL (3.5-5.0); Alkaline Phosphatase 146 U/L (40-110); Anion Gap 16 mmol/L (10-20); BUN (Urea Nitrogen) 41 mg/dL (9.8-20.1); Calc. Creatinine Clearance 43 mL/min (70-130); Calcium 8.4 mg/dL (7.8-10.44); Carbon Dioxide 21 mmol/L (22-29); Chloride 103 mmol/L (98-107); Globulin 3.3 g/dL (2.4-3.5); Glucose 239 mg/dL (70-105); Potassium 4.1 mmol/L (3.5-5.1); Protein, Total 7.2 g/dL (6.0-8.3); Sodium 136 mmol/L (136-145)
[2021-04-17] MEDS: Dexamethasone 10 MG/ML VIAL SLOW IVP SCH ×2 (04:49→16:13)
[2021-04-17] MEDS: Mometasone 200 MCG/Formoterol 5 MCG 120 PUFF INHALER INH SCH ×2 (06:43→19:09)
[2021-04-17] MEDS ORDERED: Nicotine 21 MG PATCH TOP SCH (09:00)
[2021-04-17] MEDS: Enoxaparin Sodium 40 MG/0.4 ML SYRINGE SC SCH (09:12)
[2021-04-17] MEDS: Clopidogrel Bisulfate 75 MG TAB PO SCH (09:12)
[2021-04-17] MEDS: Metoprolol Tartrate 25 MG TAB PO SCH ×2 (09:12→20:42)
[2021-04-17] MEDS: Ascorbic Acid 500 mg Chewable Tablet PO SCH (09:13)
[2021-04-17] MEDS: Ferrous Sulfate 325 MG TAB PO SCH (09:13)
[2021-04-17] MEDS: Aspirin 81 mg Enteric Coated Tablet PO SCH (09:13)
[2021-04-17] MEDS: Cholecalciferol (Vitamin D3) 400 UNITS TAB PO SCH (09:13)
[2021-04-17] MEDS: Zinc Sulfate 220 MG CAP PO SCH (09:13)
[2021-04-17] MEDS: HumaLOG 300 UNITS/3 ML VIAL SC PRN ×4 (09:15→20:47)
[2021-04-17] MEDS: ALPRAZolam 0.25 MG TAB PO PRN ×2 (09:20→20:42)
[2021-04-17] MEDS: Benzonatate 100 MG CAP PO PRN ×2 (09:20→20:42)
[2021-04-17] MEDS: Atorvastatin Calcium 40 MG TAB PO SCH (20:43)
[2021-04-17] MEDS: Nicotine 21 MG PATCH TOP SCH (20:44)
[2021-04-18] MEDS: Albuterol 200 PUFF (6.7GM INHALER) INH SCH ×7 (02:10→22:18)
[2021-04-18 03:34] LABS: #Basophils 0.1 thou/uL (0.0-0.2); #Lymphocytes 0.3 thou/uL (1.20-3.40); #Monocytes 0.1 thou/uL (0.11-0.59); #Neutrophils 9.1 thou/uL (1.40-6.50); %Basophils 0.7 % (0.0-1.0); %Eosinophils 0.3 % (0.0-10.0); %Lymphocytes 3.1 % (21.0-51.0); %Monocytes 1.3 % (0.0-10.0); %Neutrophils 94.6 % (42.0-75.0); Hemoglobin 8.4 g/dL (12.0-16.0); Mean Corpuscular HGB CONC 32.3 g/dL (32.0-36.0); Mean Corpuscular Hemoglobin 32.5 pg (27.0-31.0); Mean Platelet Volume 8.5 fL (7.4-10.4); Platelet Count 131 thou/uL (130-400); Red Blood Cell (RBC) Count 2.57 mill/uL (4.20-5.40); White Blood Cell (WBC) Count 9.6 thou/uL (4.8-10.8)
[2021-04-18 03:44] LABS: Anion Gap 17 mmol/L (10-20); BUN (Urea Nitrogen) 42 mg/dL (9.8-20.1); Calc. Creatinine Clearance 44 mL/min (70-130); Calcium 8.5 mg/dL (7.8-10.44); Carbon Dioxide 18 mmol/L (22-29); Chloride 102 mmol/L (98-107); Glucose 338 mg/dL (70-105); Potassium 4.3 mmol/L (3.5-5.1); Sodium 133 mmol/L (136-145)
[2021-04-18] MEDS: Dexamethasone 10 MG/ML VIAL SLOW IVP SCH ×2 (03:53→16:41)
[2021-04-18] MEDS: HumaLOG 300 UNITS/3 ML VIAL SC PRN ×4 (03:55→21:38)
[2021-04-18] MEDS: Mometasone 200 MCG/Formoterol 5 MCG 120 PUFF INHALER INH SCH ×2 (05:41→18:49)
[2021-04-18] MEDS: Aspirin 81 mg Enteric Coated Tablet PO SCH (08:04)
[2021-04-18] MEDS: Ascorbic Acid 500 mg Chewable Tablet PO SCH (08:04)
[2021-04-18] MEDS: Metoprolol Tartrate 25 MG TAB PO SCH ×2 (08:04→19:54)
[2021-04-18] MEDS: Zinc Sulfate 220 MG CAP PO SCH (08:05)
[2021-04-18] MEDS: Cholecalciferol (Vitamin D3) 400 UNITS TAB PO SCH (08:05)
[2021-04-18] MEDS: Ferrous Sulfate 325 MG TAB PO SCH (08:05)
[2021-04-18] MEDS: Clopidogrel Bisulfate 75 MG TAB PO SCH (08:05)
[2021-04-18] MEDS: Enoxaparin Sodium 40 MG/0.4 ML SYRINGE SC SCH (08:06)
[2021-04-18] MEDS: Nicotine 21 MG PATCH TD SCH (11:50)
[2021-04-18 14:02] LABS: ALT (SGPT) 346 U/L (8-55); AST (SGOT) 157 U/L (5-34); Alkaline Phosphatase 145 U/L (40-110); Bilirubin, Direct 0.6 mg/dL (0.1-0.3); Bilirubin, Total 1.4 mg/dL (0.2-1.2); Protein, Total 7.1 g/dL (6.0-8.3)
[2021-04-18] MEDS: Atorvastatin Calcium 40 MG TAB PO SCH (19:55)
[2021-04-18] MEDS: Benzonatate 100 MG CAP PO PRN (19:55)
[2021-04-18] MEDS: ALPRAZolam 0.25 MG TAB PO PRN (19:55)
[2021-04-19] MEDS: Albuterol 200 PUFF (6.7GM INHALER) INH SCH ×6 (02:54→22:40)
[2021-04-19] MEDS: Dexamethasone 10 MG/ML VIAL SLOW IVP SCH ×2 (03:15→10:57)
[2021-04-19] MEDS ORDERED: Dextrose 5% in Water 1,000 ML IV PRN (05:14)
[2021-04-19] MEDS: HumaLOG 300 UNITS/3 ML VIAL SC PRN ×4 (05:18→17:06)
[2021-04-19] MEDS: Mometasone 200 MCG/Formoterol 5 MCG 120 PUFF INHALER INH SCH ×2 (06:17→18:28)
[2021-04-19 07:17] LABS: Anion Gap 16 mmol/L (10-20); BUN (Urea Nitrogen) 55 mg/dL (9.8-20.1); Calc. Creatinine Clearance 36 mL/min (70-130); Calcium 8.3 mg/dL (7.8-10.44); Carbon Dioxide 18 mmol/L (22-29); Chloride 98 mmol/L (98-107); Potassium 4.3 mmol/L (3.5-5.1); Sodium 128 mmol/L (136-145)
[2021-04-19 07:45] LABS: Glucose 611 mg/dL (70-105)
[2021-04-19 08:10] LABS: #Lymphocytes 0.3 thou/uL (1.20-3.40); #Monocytes 0.1 thou/uL (0.11-0.59); #Neutrophils 11.5 thou/uL (1.40-6.50); %Basophils 0.1 % (0.0-1.0); %Eosinophils 0.1 % (0.0-10.0); %Lymphocytes 2.6 % (21.0-51.0); %Monocytes 0.9 % (0.0-10.0); %Neutrophils 96.3 % (42.0-75.0); Hemoglobin 8.6 g/dL (12.0-16.0); Mean Corpuscular HGB CONC 31.8 g/dL (32.0-36.0); Mean Corpuscular Hemoglobin 32.7 pg (27.0-31.0); Mean Platelet Volume 8.8 fL (7.4-10.4); Platelet Count 148 thou/uL (130-400); RBC Distribution Width 17.3 % (11.5-14.5); Red Blood Cell (RBC) Count 2.64 mill/uL (4.20-5.40); White Blood Cell (WBC) Count 11.9 thou/uL (4.8-10.8)
[2021-04-19] MEDS: Enoxaparin Sodium 40 MG/0.4 ML SYRINGE SC SCH (08:16)
[2021-04-19] MEDS: Aspirin 81 mg Enteric Coated Tablet PO SCH (08:17)
[2021-04-19] MEDS: Metoprolol Tartrate 25 MG TAB PO SCH ×2 (08:17→21:30)
[2021-04-19] MEDS: Zinc Sulfate 220 MG CAP PO SCH (08:17)
[2021-04-19] MEDS: Folic Acid 1 MG TAB PO SCH (08:17)
[2021-04-19] MEDS: Ascorbic Acid 500 mg Chewable Tablet PO SCH (08:17)
[2021-04-19] MEDS: Ferrous Sulfate 325 MG TAB PO SCH (08:17)
[2021-04-19] MEDS: Cholecalciferol (Vitamin D3) 400 UNITS TAB PO SCH (08:17)
[2021-04-19] MEDS: Clopidogrel Bisulfate 75 MG TAB PO SCH (08:17)
[2021-04-19] MEDS ORDERED: Lantus 1000 UNITS/10 ML VIAL SC SCH (08:30)
[2021-04-19 08:38] LABS: Hemoglobin A1c 6.1 % (4.0-6.0)
[2021-04-19 08:43] LABS: MDiff Complete? YES; Macrocytosis SLIGHT = 6-15 cells (100X) (0-5/hpf); Platelet Morphology Comment Appears Adequate; Polychromasia SLIGHT = 2-3 cells (100X) (0-2/hpf)
[2021-04-19] MEDS: Nicotine 21 MG PATCH TD SCH (10:58)
[2021-04-19] MEDS: ALPRAZolam 0.25 MG TAB PO PRN (21:30)
[2021-04-19] MEDS: Atorvastatin Calcium 40 MG TAB PO SCH (21:30)
[2021-04-19] MEDS: Benzonatate 100 MG CAP PO PRN (21:30)
[2021-04-20] MEDS: Albuterol 200 PUFF (6.7GM INHALER) INH SCH ×5 (02:30→18:41)
[2021-04-20] MEDS: Mometasone 200 MCG/Formoterol 5 MCG 120 PUFF INHALER INH SCH ×2 (06:28→18:41)
[2021-04-20] MEDS: HumaLOG 300 UNITS/3 ML VIAL SC PRN ×4 (06:34→20:23)
[2021-04-20] MEDS: Clopidogrel Bisulfate 75 MG TAB PO SCH (08:38)
[2021-04-20] MEDS: Metoprolol Tartrate 25 MG TAB PO SCH ×2 (08:38→20:22)
[2021-04-20] MEDS: Cholecalciferol (Vitamin D3) 400 UNITS TAB PO SCH (08:38)
[2021-04-20] MEDS: Aspirin 81 mg Enteric Coated Tablet PO SCH (08:38)
[2021-04-20] MEDS: Folic Acid 1 MG TAB PO SCH (08:38)
[2021-04-20] MEDS: Ascorbic Acid 500 mg Chewable Tablet PO SCH (08:38)
[2021-04-20] MEDS: Ferrous Sulfate 325 MG TAB PO SCH (08:38)
[2021-04-20] MEDS: Zinc Sulfate 220 MG CAP PO SCH (08:39)
[2021-04-20] MEDS: Dexamethasone 10 MG/ML VIAL SLOW IVP SCH (08:39)
[2021-04-20] MEDS: Enoxaparin Sodium 40 MG/0.4 ML SYRINGE SC SCH (08:39)
[2021-04-20] MEDS: Dexamethasone 4 mg/ml Vial SLOW IVP SCH (09:13)
[2021-04-20] MEDS: Lantus 1000 UNITS/10 ML VIAL SC SCH (09:14)
[2021-04-20] MEDS: Sodium Chloride 0.9% 1,000 ML IV SCH ×2 (10:30→20:21)
[2021-04-20] MEDS: Nicotine 21 MG PATCH TD SCH (10:35)
[2021-04-20] MEDS: Atorvastatin Calcium 40 MG TAB PO SCH (20:22)
[2021-04-20] MEDS: Benzonatate 100 MG CAP PO PRN (20:23)
[2021-04-21] MEDS: Albuterol 200 PUFF (6.7GM INHALER) INH SCH ×7 (00:29→23:39)
[2021-04-21] MEDS: HumaLOG 300 UNITS/3 ML VIAL SC PRN ×2 (05:11→16:29)
[2021-04-21] MEDS: Sodium Chloride 0.9% 1,000 ML IV SCH ×3 (05:11→23:39)
[2021-04-21] MEDS: Mometasone 200 MCG/Formoterol 5 MCG 120 PUFF INHALER INH SCH ×2 (05:13→18:09)
[2021-04-21 07:38] LABS: #Lymphocytes 0.4 thou/uL (1.20-3.40); #Monocytes 0.1 thou/uL (0.11-0.59); #Neutrophils 7.8 thou/uL (1.40-6.50); %Eosinophils 0.4 % (0.0-10.0); %Lymphocytes 4.7 % (21.0-51.0); %Monocytes 1.3 % (0.0-10.0); %Neutrophils 93.6 % (42.0-75.0); Hemoglobin 8.8 g/dL (12.0-16.0); Mean Corpuscular HGB CONC 30.8 g/dL (32.0-36.0); Mean Corpuscular Hemoglobin 32.6 pg (27.0-31.0); Mean Platelet Volume 8.5 fL (7.4-10.4); Platelet Count 142 thou/uL (130-400); RBC Distribution Width 17.9 % (11.5-14.5); Red Blood Cell (RBC) Count 2.69 mill/uL (4.20-5.40); White Blood Cell (WBC) Count 8.4 thou/uL (4.8-10.8)
[2021-04-21 07:47] LABS: Anion Gap 15 mmol/L (10-20); BUN (Urea Nitrogen) 55 mg/dL (9.8-20.1); Calc. Creatinine Clearance 55 mL/min (70-130); Calcium 8.1 mg/dL (7.8-10.44); Carbon Dioxide 17 mmol/L (22-29); Chloride 107 mmol/L (98-107); Glucose 202 mg/dL (70-105); Potassium 3.6 mmol/L (3.5-5.1); Sodium 135 mmol/L (136-145)
[2021-04-21 08:39] LABS: Hypochromia SLIGHT = 6-15 cells (100X) (0-5/hpf); MDiff Complete? YES; Macrocytosis SLIGHT = 6-15 cells (100X) (0-5/hpf); Platelet Morphology Comment Appears Adequate; Polychromasia MODERATE = 3-4 cells (100X) (0-2/hpf)
[2021-04-21] MEDS: Cholecalciferol (Vitamin D3) 400 UNITS TAB PO SCH (08:47)
[2021-04-21] MEDS: Metoprolol Tartrate 25 MG TAB PO SCH ×2 (08:47→21:02)
[2021-04-21] MEDS: Aspirin 81 mg Enteric Coated Tablet PO SCH (08:47)
[2021-04-21] MEDS: Ascorbic Acid 500 mg Chewable Tablet PO SCH (08:49)
[2021-04-21] MEDS: Clopidogrel Bisulfate 75 MG TAB PO SCH (08:49)
[2021-04-21] MEDS: Ferrous Sulfate 325 MG TAB PO SCH (08:49)
[2021-04-21] MEDS: Zinc Sulfate 220 MG CAP PO SCH (08:50)
[2021-04-21] MEDS: Folic Acid 1 MG TAB PO SCH (08:50)
[2021-04-21] MEDS: Dexamethasone 4 mg/ml Vial SLOW IVP SCH (08:50)
[2021-04-21] MEDS: Lantus 1000 UNITS/10 ML VIAL SC SCH ×2 (08:51→21:05)
[2021-04-21] MEDS: Enoxaparin Sodium 40 MG/0.4 ML SYRINGE SC SCH (08:53)
[2021-04-21] MEDS: Nicotine 21 MG PATCH TD SCH (11:19)
[2021-04-21] MEDS: Atorvastatin Calcium 40 MG TAB PO SCH (21:02)
[2021-04-22] MEDS: Albuterol 200 PUFF (6.7GM INHALER) INH SCH ×6 (02:28→22:34)
[2021-04-22] MEDS: Mometasone 200 MCG/Formoterol 5 MCG 120 PUFF INHALER INH SCH ×2 (05:57→18:20)
[2021-04-22 08:12] LABS: Anion Gap 13 mmol/L (10-20); BUN (Urea Nitrogen) 43 mg/dL (9.8-20.1); Calc. Creatinine Clearance 61 mL/min (70-130); Calcium 7.8 mg/dL (7.8-10.44); Carbon Dioxide 18 mmol/L (22-29); Chloride 112 mmol/L (98-107); Glucose 117 mg/dL (70-105); Potassium 3.2 mmol/L (3.5-5.1); Sodium 140 mmol/L (136-145)
[2021-04-22] MEDS: Enoxaparin Sodium 40 MG/0.4 ML SYRINGE SC SCH (08:26)
[2021-04-22] MEDS: Folic Acid 1 MG TAB PO SCH (08:27)
[2021-04-22] MEDS: Metoprolol Tartrate 25 MG TAB PO SCH ×2 (08:27→20:57)
[2021-04-22] MEDS: Zinc Sulfate 220 MG CAP PO SCH (08:27)
[2021-04-22] MEDS: Clopidogrel Bisulfate 75 MG TAB PO SCH (08:27)
[2021-04-22] MEDS: Cholecalciferol (Vitamin D3) 400 UNITS TAB PO SCH (08:28)
[2021-04-22] MEDS: Ferrous Sulfate 325 MG TAB PO SCH ×2 (08:28→20:56)
[2021-04-22] MEDS: Ascorbic Acid 500 mg Chewable Tablet PO SCH (08:28)
[2021-04-22] MEDS: Aspirin 81 mg Enteric Coated Tablet PO SCH (08:28)
[2021-04-22] MEDS: Dexamethasone 4 mg/ml Vial SLOW IVP SCH (08:28)
[2021-04-22] MEDS: Lantus 1000 UNITS/10 ML VIAL SC SCH ×2 (08:30→20:57)
[2021-04-22] MEDS: Sodium Chloride 0.9% 1,000 ML IV SCH (08:35)
[2021-04-22] MEDS: Nicotine 21 MG PATCH TD SCH (10:37)
[2021-04-22] MEDS ORDERED: Potassium Chloride 20 MEQ TAB PO SCH (12:30)
[2021-04-22] MEDS ORDERED: Cepastat Lozenges 1 LOZ PO PRN (13:15)
[2021-04-22] MEDS ORDERED: Hydrocerin (Eucerin) Cream 120 gm Jar TOP PRN (13:15)
[2021-04-22] MEDS ORDERED: Calcium Carbonate 500 MG ChewTAB PO PRN (13:15)
[2021-04-22] MEDS ORDERED: Sodium Chloride 0.65% Nasal 44 ML BOT EA NARE PRN (13:15)
[2021-04-22] MEDS ORDERED: hydrALAZINE 20 MG/ML VIAL SLOW IVP PRN (13:15)
[2021-04-22] MEDS ORDERED: HYDROcodone/Acetaminophen 5/325 mg Tablet PO PRN (13:15)
[2021-04-22] MEDS ORDERED: Loperamide HCl 2 MG CAP PO PRN (13:15)
[2021-04-22] MEDS ORDERED: GUAIFENESIN SF SOLN 200 MG/10 ML UDCUP PO PRN (13:15)
[2021-04-22] MEDS ORDERED: Ondansetron ODT 4 MG TAB PO PRN (13:15)
[2021-04-22] MEDS ORDERED: Bisacodyl 5 MG TAB PO PRN (13:15)
[2021-04-22] MEDS ORDERED: Ondansetron PF 4 MG/2 ML Vial IVP PRN (13:15)
[2021-04-22] MEDS ORDERED: Loratadine 10 MG TAB PO PRN (13:15)
[2021-04-22] MEDS ORDERED: Artificial Tear Sol 15 ML BOT EA EYE PRN (13:15)
[2021-04-22] MEDS ORDERED: Senokot S 8.6-50 MG TAB PO PRN (13:15)
[2021-04-22] MEDS ORDERED: Polyethylene Glycol 3350 17 GM Packet PO SCH (13:15)
[2021-04-22] MEDS: HumaLOG 300 UNITS/3 ML VIAL SC PRN ×2 (17:18→20:58)
[2021-04-22] MEDS: Atorvastatin Calcium 40 MG TAB PO SCH (20:56)
[2021-04-22] MEDS: ALPRAZolam 0.25 MG TAB PO SCH (20:57)
[2021-04-22] MEDS: Fluticasone Propionate Nasal Spray 16 gm Bottle NASAL SCH (22:34)
[2021-04-23] MEDS: Albuterol 200 PUFF (6.7GM INHALER) INH SCH ×6 (03:44→22:47)
[2021-04-23] MEDS: Mometasone 200 MCG/Formoterol 5 MCG 120 PUFF INHALER INH SCH ×2 (05:54→17:37)
[2021-04-23] MEDS: Enoxaparin Sodium 40 MG/0.4 ML SYRINGE SC SCH (08:31)
[2021-04-23] MEDS: Polyethylene Glycol 3350 17 GM Packet PO SCH (08:31)
[2021-04-23] MEDS: Folic Acid 1 MG TAB PO SCH (08:32)
[2021-04-23] MEDS: Clopidogrel Bisulfate 75 MG TAB PO SCH (08:32)
[2021-04-23] MEDS: Ferrous Sulfate 325 MG TAB PO SCH ×3 (08:32→20:37)
[2021-04-23] MEDS: Metoprolol Tartrate 25 MG TAB PO SCH ×2 (08:32→20:38)
[2021-04-23] MEDS: ALPRAZolam 0.25 MG TAB PO SCH ×2 (08:32→20:38)
[2021-04-23] MEDS: Ascorbic Acid 500 mg Chewable Tablet PO SCH (08:32)
[2021-04-23] MEDS: Dexamethasone 4 MG TAB PO SCH (08:32)
[2021-04-23] MEDS: Aspirin 81 mg Enteric Coated Tablet PO SCH (08:33)
[2021-04-23] MEDS: Cholecalciferol (Vitamin D3) 400 UNITS TAB PO SCH (08:33)
[2021-04-23] MEDS: Zinc Sulfate 220 MG CAP PO SCH (08:33)
[2021-04-23] MEDS: Fluticasone Propionate Nasal Spray 16 gm Bottle NASAL SCH ×2 (08:34→20:40)
[2021-04-23] MEDS: Lantus 1000 UNITS/10 ML VIAL SC SCH ×2 (08:34→20:39)
[2021-04-23] MEDS: Nicotine 21 MG PATCH TD SCH (10:12)
[2021-04-23 10:17] LABS: #Eosinphils 0.1 thou/uL (0.0-0.7); #Lymphocytes 0.4 thou/uL (1.20-3.40); #Monocytes 0.2 thou/uL (0.11-0.59); %Basophils 0.1 % (0.0-1.0); %Eosinophils 1.6 % (0.0-10.0); %Lymphocytes 4.7 % (21.0-51.0); %Monocytes 2.1 % (0.0-10.0); %Neutrophils 91.5 % (42.0-75.0); Hemoglobin 8.5 g/dL (12.0-16.0); Mean Corpuscular HGB CONC 32.2 g/dL (32.0-36.0); Mean Corpuscular Hemoglobin 34.1 pg (27.0-31.0); Platelet Count 120 thou/uL (130-400); RBC Distribution Width 17.9 % (11.5-14.5); Red Blood Cell (RBC) Count 2.48 mill/uL (4.20-5.40); White Blood Cell (WBC) Count 8.7 thou/uL (4.8-10.8)
[2021-04-23 10:34] LABS: ALT (SGPT) 71 U/L (8-55); AST (SGOT) 14 U/L (5-34); Albumin 2.9 g/dL (3.5-5.0); Alkaline Phosphatase 90 U/L (40-110); Anion Gap 15 mmol/L (10-20); BUN (Urea Nitrogen) 35 mg/dL (9.8-20.1); Bilirubin, Total 1.3 mg/dL (0.2-1.2); Calc. Creatinine Clearance 67 mL/min (70-130); Calcium 7.9 mg/dL (7.8-10.44); Carbon Dioxide 16 mmol/L (22-29); Chloride 114 mmol/L (98-107); Glucose 153 mg/dL (70-105); Magnesium 1.4 mg/dL (1.6-2.6); Phosphorus 2.2 mg/dL (2.3-4.7); Potassium 3.4 mmol/L (3.5-5.1); Protein, Total 5.9 g/dL (6.0-8.3); Sodium 142 mmol/L (136-145)
[2021-04-23] MEDS: ALPRAZolam 0.25 MG TAB PO PRN (13:05)
[2021-04-23] MEDS: HumaLOG 300 UNITS/3 ML VIAL SC PRN (17:36)
[2021-04-23] MEDS: Atorvastatin Calcium 40 MG TAB PO SCH (20:38)
[2021-04-24] MEDS: Albuterol 200 PUFF (6.7GM INHALER) INH SCH ×6 (03:40→20:58)
[2021-04-24] MEDS: Mometasone 200 MCG/Formoterol 5 MCG 120 PUFF INHALER INH SCH ×2 (05:42→17:44)
[2021-04-24] MEDS: Ferrous Sulfate 325 MG TAB PO SCH ×2 (09:10→09:12)
[2021-04-24] MEDS: Aspirin 81 mg Enteric Coated Tablet PO SCH (09:10)
[2021-04-24] MEDS: Zinc Sulfate 220 MG CAP PO SCH (09:10)
[2021-04-24] MEDS: Enoxaparin Sodium 40 MG/0.4 ML SYRINGE SC SCH (09:10)
[2021-04-24] MEDS: Clopidogrel Bisulfate 75 MG TAB PO SCH (09:10)
[2021-04-24] MEDS: Dexamethasone 4 MG TAB PO SCH (09:10)
[2021-04-24] MEDS: Lantus 1000 UNITS/10 ML VIAL SC SCH ×2 (09:10→19:48)
[2021-04-24] MEDS: Metoprolol Tartrate 25 MG TAB PO SCH ×2 (09:11→19:47)
[2021-04-24] MEDS: Folic Acid 1 MG TAB PO SCH (09:11)
[2021-04-24] MEDS: Ascorbic Acid 500 mg Chewable Tablet PO SCH (09:11)
[2021-04-24] MEDS: ALPRAZolam 0.25 MG TAB PO SCH ×2 (09:12→19:47)
[2021-04-24] MEDS: Polyethylene Glycol 3350 17 GM Packet PO SCH (09:12)
[2021-04-24] MEDS: Fluticasone Propionate Nasal Spray 16 gm Bottle NASAL SCH ×2 (09:12→20:57)
[2021-04-24] MEDS: Cholecalciferol (Vitamin D3) 400 UNITS TAB PO SCH (09:12)
[2021-04-24] MEDS: Nicotine 21 MG PATCH TD SCH (12:14)
[2021-04-24] MEDS: HumaLOG 300 UNITS/3 ML VIAL SC PRN ×2 (17:43→19:50)
[2021-04-24] MEDS: Atorvastatin Calcium 40 MG TAB PO SCH (19:46)
[2021-04-24 21:42] VITALS: TEMP 98.3
[2021-04-25] MEDS: Albuterol 200 PUFF (6.7GM INHALER) INH SCH ×4 (04:18→13:36)
[2021-04-25] MEDS: Mometasone 200 MCG/Formoterol 5 MCG 120 PUFF INHALER INH SCH (05:15)
[2021-04-25] MEDS: Enoxaparin Sodium 40 MG/0.4 ML SYRINGE SC SCH (09:09)
[2021-04-25] MEDS: Aspirin 81 mg Enteric Coated Tablet PO SCH (09:10)
[2021-04-25] MEDS: Metoprolol Tartrate 25 MG TAB PO SCH (09:10)
[2021-04-25] MEDS: Folic Acid 1 MG TAB PO SCH (09:10)
[2021-04-25] MEDS: Ferrous Sulfate 325 MG TAB PO SCH (09:11)
[2021-04-25] MEDS: Ascorbic Acid 500 mg Chewable Tablet PO SCH (09:11)
[2021-04-25] MEDS: ALPRAZolam 0.25 MG TAB PO SCH (09:11)
[2021-04-25] MEDS: Clopidogrel Bisulfate 75 MG TAB PO SCH (09:11)
[2021-04-25] MEDS: Zinc Sulfate 220 MG CAP PO SCH (09:11)
[2021-04-25] MEDS: Cholecalciferol (Vitamin D3) 400 UNITS TAB PO SCH (09:12)
[2021-04-25] MEDS: Dexamethasone 4 MG TAB PO SCH (09:12)
[2021-04-25] MEDS: Fluticasone Propionate Nasal Spray 16 gm Bottle NASAL SCH (09:23)
[2021-04-25] MEDS: Lantus 1000 UNITS/10 ML VIAL SC SCH (09:25)
[2021-04-25] MEDS: Polyethylene Glycol 3350 17 GM Packet PO SCH (09:26)
[2021-04-25] MEDS: Nicotine 21 MG PATCH TD SCH (13:36)
[2021-04-25 16:16] VITALS: BP 147/60
== END 2021-04-25 17:23 | disposition home health service (06) | DRG 177 ==
LOC: ERS 09:12 → ERHOLD 12:21 → IMCU/EMU 20:55 → T4-A 04-17 17:41
PROVIDERS: ADMIT Family Medicine; ATTEND Internal Medicine
PROC: 5A0935A Assistance with Respiratory Ventilation, Less than 24 Consecutive Hours, High Flow/Velocity Cannula (ICD-10-PCS; principal; 2021-04-15)
PROC: 8E0ZXY6 Isolation (ICD-10-PCS; 2021-04-15)
PROC: 30233N1 Transfusion of Nonautologous Red Blood Cells into Peripheral Vein, Percutaneous Approach (ICD-10-PCS; 2021-04-17)
DX: U07.1 COVID-19 (principal); J12.82 Pneumonia due to coronavirus disease 2019; J96.01 Acute respiratory failure with hypoxia; I50.33 Acute on chronic diastolic (congestive) heart failure; N17.9 Acute kidney failure, unspecified; J44.0 Chronic obstructive pulmonary disease with (acute) lower respiratory infection; I50.32 Chronic diastolic (congestive) heart failure; I13.0 Hypertensive heart and chronic kidney disease with heart failure and stage 1 through stage 4 chronic kidney disease, or unspecified chronic kidney disease; E87.1 Hypo-osmolality and hyponatremia; J44.1 Chronic obstructive pulmonary disease with (acute) exacerbation; E78.5 Hyperlipidemia, unspecified; I73.9 Peripheral vascular disease, unspecified; F17.210 Nicotine dependence, cigarettes, uncomplicated; N18.30 Chronic kidney disease, stage 3 unspecified; D63.1 Anemia in chronic kidney disease; I25.10 Atherosclerotic heart disease of native coronary artery without angina pectoris; R94.5 Abnormal results of liver function studies; E77.8 Other disorders of glycoprotein metabolism; R94.31 Abnormal electrocardiogram [ECG] [EKG]; R73.9 Hyperglycemia, unspecified; E87.6 Hypokalemia; Z83.1 Family history of other infectious and parasitic diseases; Z88.1 Allergy status to other antibiotic agents; Z79.899 Other long term (current) drug therapy; Z79.82 Long term (current) use of aspirin; Z79.02 Long term (current) use of antithrombotics/antiplatelets; Z79.52 Long term (current) use of systemic steroids; Z89.612 Acquired absence of left leg above knee; Z95.828 Presence of other vascular implants and grafts; Z90.710 Acquired absence of both cervix and uterus
CPT/HCPCS: 36415; 36416; 36430; 71045; 76770; 80048; 80053; 80076; 81001; 82553; 83036; 83735; 83880; 84100; 84484; 85025; 86140; 86850; 86900; 86901; 86922; 93005; 94664; J1100; J1650; J1815; J1940; J7050; J8540; P9016; P9047; U0002

== ENCOUNTER 2021-05-10 09:27 | Outpatient (CLI) | payer MEDICARE, MEDICAID | END 2021-05-10 09:28 | disposition home or self-care (01) | LOC: BICRAD 09:27 | PROVIDERS: ATTEND Internal Medicine | DX: J18.9 Pneumonia, unspecified organism (principal); R05.9 Cough, unspecified; I51.7 Cardiomegaly; R91.8 Other nonspecific abnormal finding of lung field | CPT/HCPCS: 71046 ==

== ENCOUNTER 2021-05-13 06:38 | Inpatient (IN) | payer MEDICARE, MEDICAID ==
[2021-05-13] MEDS ORDERED: Vancomycin 1 GM/200 ML BAG ONE (07:10)
[2021-05-13] MEDS ORDERED: Cefepime 2 GM VIAL ONE (07:10)
[2021-05-13 07:44] LABS: ALT (SGPT) 13 U/L (8-55); AST (SGOT) 15 U/L (5-34); Albumin 3.2 g/dL (3.5-5.0); Alkaline Phosphatase 97 U/L (40-110); Anion Gap 18 mmol/L (10-20); BUN (Urea Nitrogen) 11 mg/dL (9.8-20.1); Bilirubin, Total 1.6 mg/dL (0.2-1.2); Calc. Creatinine Clearance 0 mL/min (70-130); Calcium 6.2 mg/dL (7.8-10.44); Carbon Dioxide 22 mmol/L (22-29); Chloride 104 mmol/L (98-107); Globulin 3.8 g/dL (2.4-3.5); Glucose 99 mg/dL (70-105); Potassium 3.1 mmol/L (3.5-5.1); Sodium 141 mmol/L (136-145)
[2021-05-13 07:47] LABS: #Eosinphils 0.1 thou/uL (0.0-0.7); #Lymphocytes 1.2 thou/uL (1.20-3.40); #Monocytes 0.5 thou/uL (0.11-0.59); #Neutrophils 5.3 thou/uL (1.40-6.50); %Basophils 0.1 % (0.0-1.0); %Eosinophils 1.2 % (0.0-10.0); %Lymphocytes 17.2 % (21.0-51.0); %Monocytes 7.3 % (0.0-10.0); %Neutrophils 74.3 % (42.0-75.0); Hemoglobin 7.7 g/dL (12.0-16.0); Mean Corpuscular HGB CONC 30.9 g/dL (32.0-36.0); Mean Corpuscular Hemoglobin 31.7 pg (27.0-31.0); Mean Platelet Volume 7.8 fL (7.4-10.4); Platelet Count 249 thou/uL (130-400); RBC Distribution Width 19.9 % (11.5-14.5); Red Blood Cell (RBC) Count 2.44 mill/uL (4.20-5.40); White Blood Cell (WBC) Count 7.2 thou/uL (4.8-10.8)
[2021-05-13] MEDS ORDERED: Benzonatate 100 MG CAP PO PRN (08:31)
[2021-05-13] MEDS ORDERED: Acetaminophen 650 MG Suppository PR PRN (08:31)
[2021-05-13] MEDS ORDERED: Acetaminophen 325 MG TAB PO PRN (08:31)
[2021-05-13] MEDS ORDERED: Iopamidol 370 76% 100 ML VIAL ONE (09:23)
[2021-05-13] MEDS ORDERED: Furosemide 40 MG/4 ML VIAL ONE (09:24)
[2021-05-13] MEDS ORDERED: Calcium Gluc 4.6 MEQ/10 ML (100 MG/ML) SLOW IVP ONE (10:01)
[2021-05-13] MEDS ORDERED: Dexamethasone 10 MG/ML VIAL ONE (11:38)
[2021-05-13] MEDS ORDERED: Calcium Gluc 4.6 MEQ/10 ML (100 MG/ML) ONE (11:38)
[2021-05-13] MEDS ORDERED: Famotidine 20 MG TAB ONE (11:38)
[2021-05-13] MEDS ORDERED: Zinc Sulfate 220 MG CAP ONE (11:40)
[2021-05-13] MEDS ORDERED: Ascorbic Acid 500 mg Chewable Tablet ONE (11:40)
[2021-05-13] MEDS: Ascorbic Acid 500 mg Chewable Tablet PO SCH (11:56)
[2021-05-13] MEDS: Zinc Sulfate 220 MG CAP PO SCH (11:57)
[2021-05-13] MEDS: Dexamethasone 10 MG/ML VIAL SLOW IVP SCH ×2 (11:57→20:38)
[2021-05-13] MEDS: Famotidine 20 MG TAB PO SCH ×2 (11:57→20:37)
[2021-05-13 13:28] VITALS: BMI 29.2
[2021-05-13] MEDS ORDERED: FLU VACC QS2021-22(6MOS UP)/PF 60 MCG/0.5 ML SYRINGE IM ONE (13:30)
[2021-05-13] MEDS: Ferrous Sulfate 325 MG TAB PO SCH (16:19)
[2021-05-13 16:59] LABS: Bacteria/HPF None Seen HPF (None Seen); Bilirubin Negative (Negative); Blood, Urine Trace (Negative); Clarity Clear (Clear); Glucose, Urine (Dipstick) Normal (Negative); Ketone, Urine Negative (Negative); Leukocyte Negative Leu/uL (Negative); Nitrite Negative (Negative); Protein, Urine (Dipstick) 70 mg/dL (Neg-Trace); Specific Gravity, Urine 1.012 (1.002-1.036); Squamous Epithelial 0-3 HPF (0-3); Urobilinogen Normal mg/dL (Less than 2); WBC/HPF 0-3 HPF (0-3); pH, Urine 5.5 (5.0-9.0)
[2021-05-13 17:00] LABS: Urine Culture Reflex No No
[2021-05-13] MEDS ORDERED: Dextrose 5% in Water 1,000 ML IV PRN (18:02)
[2021-05-13] MEDS ORDERED: Dextrose 50% Abboject 50 ML SYRINGE SLOW IVP PRN (18:02)
[2021-05-13] MEDS: HumaLOG 300 UNITS/3 ML VIAL SC PRN ×2 (18:34→20:38)
[2021-05-13] MEDS: ALPRAZolam 0.25 MG TAB PO SCH (20:34)
[2021-05-13] MEDS: Metoprolol Tartrate 25 MG TAB PO SCH (20:37)
[2021-05-13] MEDS: Cefepime 1 GM in Sodium Chloride 0.9% 100 ML IVPB SCH (20:38)
[2021-05-13] MEDS: Vancomycin 1 GM in Premix Bag 1 BAG IVPB SCH (20:39)
[2021-05-14 04:40] LABS: #Lymphocytes 0.5 thou/uL (1.20-3.40); #Monocytes 0.1 thou/uL (0.11-0.59); #Neutrophils 5.4 thou/uL (1.40-6.50); %Eosinophils 0.1 % (0.0-10.0); %Lymphocytes 7.6 % (21.0-51.0); %Monocytes 1.7 % (0.0-10.0); %Neutrophils 90.6 % (42.0-75.0); Hemoglobin 8.1 g/dL (12.0-16.0); Mean Corpuscular HGB CONC 31.3 g/dL (32.0-36.0); Mean Corpuscular Hemoglobin 31.9 pg (27.0-31.0); Mean Platelet Volume 8.1 fL (7.4-10.4); Platelet Count 236 thou/uL (130-400); RBC Distribution Width 19.7 % (11.5-14.5); Red Blood Cell (RBC) Count 2.52 mill/uL (4.20-5.40); White Blood Cell (WBC) Count 5.9 thou/uL (4.8-10.8)
[2021-05-14 04:59] LABS: Anion Gap 18 mmol/L (10-20); BUN (Urea Nitrogen) 19 mg/dL (9.8-20.1); Calc. Creatinine Clearance 56 mL/min (70-130); Calcium 6.3 mg/dL (7.8-10.44); Carbon Dioxide 23 mmol/L (22-29); Chloride 102 mmol/L (98-107); Glucose 186 mg/dL (70-105); Potassium 3.5 mmol/L (3.5-5.1); Sodium 139 mmol/L (136-145)
[2021-05-14] MEDS: HumaLOG 300 UNITS/3 ML VIAL SC PRN ×4 (05:43→20:39)
[2021-05-14] MEDS: Cefepime 1 GM in Sodium Chloride 0.9% 100 ML IVPB SCH (08:44)
[2021-05-14] MEDS: Dexamethasone 4 mg/ml Vial SLOW IVP SCH (08:44)
[2021-05-14] MEDS: Vancomycin 1 GM in Premix Bag 1 BAG IVPB SCH (08:44)
[2021-05-14] MEDS: Ascorbic Acid 500 mg Chewable Tablet PO SCH (08:44)
[2021-05-14] MEDS: Zinc Sulfate 220 MG CAP PO SCH (08:44)
[2021-05-14] MEDS: Metoprolol Tartrate 25 MG TAB PO SCH ×2 (08:45→20:38)
[2021-05-14] MEDS: Famotidine 20 MG TAB PO SCH ×2 (08:45→20:38)
[2021-05-14] MEDS: Ferrous Sulfate 325 MG TAB PO SCH ×2 (08:45→17:43)
[2021-05-14] MEDS: Folic Acid 1 MG TAB PO SCH (08:45)
[2021-05-14] MEDS: ALPRAZolam 0.25 MG TAB PO SCH ×2 (08:45→20:37)
[2021-05-14] MEDS ORDERED: BARICITINIB 2 MG TAB PO SCH (09:00)
[2021-05-15] MEDS: HumaLOG 300 UNITS/3 ML VIAL SC PRN ×3 (05:55→17:20)
[2021-05-15 08:09] LABS: #Monocytes 0.8 thou/uL (0.11-0.59); #Neutrophils 10.4 thou/uL (1.40-6.50); %Basophils 0.3 % (0.0-1.0); %Eosinophils 0.1 % (0.0-10.0); %Monocytes 6.4 % (0.0-10.0); %Neutrophils 85.2 % (42.0-75.0); Hemoglobin 7.6 g/dL (12.0-16.0); Mean Corpuscular HGB CONC 30.7 g/dL (32.0-36.0); Mean Corpuscular Hemoglobin 31.6 pg (27.0-31.0); Mean Platelet Volume 7.6 fL (7.4-10.4); Platelet Count 259 thou/uL (130-400); RBC Distribution Width 19.5 % (11.5-14.5); Red Blood Cell (RBC) Count 2.42 mill/uL (4.20-5.40); White Blood Cell (WBC) Count 12.2 thou/uL (4.8-10.8)
[2021-05-15 08:25] LABS: ALT (SGPT) 11 U/L (8-55); AST (SGOT) 13 U/L (5-34); Albumin 3.1 g/dL (3.5-5.0); Alkaline Phosphatase 89 U/L (40-110); Anion Gap 15 mmol/L (10-20); BUN (Urea Nitrogen) 23 mg/dL (9.8-20.1); Bilirubin, Total 0.9 mg/dL (0.2-1.2); Calc. Creatinine Clearance 53 mL/min (70-130); Calcium 6.2 mg/dL (7.8-10.44); Carbon Dioxide 27 mmol/L (22-29); Chloride 104 mmol/L (98-107); Globulin 3.7 g/dL (2.4-3.5); Glucose 127 mg/dL (70-105); Potassium 3.1 mmol/L (3.5-5.1); Protein, Total 6.8 g/dL (6.0-8.3); Sodium 143 mmol/L (136-145)
[2021-05-15] MEDS: Ascorbic Acid 500 mg Chewable Tablet PO SCH (09:22)
[2021-05-15] MEDS: Folic Acid 1 MG TAB PO SCH (09:22)
[2021-05-15] MEDS: Ferrous Sulfate 325 MG TAB PO SCH ×2 (09:23→17:19)
[2021-05-15] MEDS: Metoprolol Tartrate 25 MG TAB PO SCH ×2 (09:23→21:14)
[2021-05-15] MEDS: Famotidine 20 MG TAB PO SCH ×2 (09:24→21:16)
[2021-05-15] MEDS: Zinc Sulfate 220 MG CAP PO SCH (09:24)
[2021-05-15] MEDS: Dexamethasone 4 mg/ml Vial SLOW IVP SCH (09:24)
[2021-05-15] MEDS ORDERED: Enoxaparin Sodium 40 MG/0.4 ML SYRINGE SC SCH (10:15)
[2021-05-15] MEDS ORDERED: Electrolyte Replacement Protocol 1 EACH FS SCH (10:15)
[2021-05-15] MEDS: Nicotine 21 MG PATCH TD SCH (12:21)
[2021-05-15] MEDS ORDERED: Potassium Chloride 20 MEQ TAB PO SCH (13:00)
[2021-05-15 13:57] LABS: Legionella Urinary Ag Negative (Negative); Strep pneumo Urine Ag NEGATIVE (NEGATIVE)
[2021-05-15 14:06] LABS: Creatinine, Urine 87.55 mg/dL (47-110)
[2021-05-15] MEDS ORDERED: Vancomycin 1 GM in Premix Bag 1 BAG IVPB SCH (17:03)
[2021-05-15] MEDS: cefTRIAXone\\ROCEPHIN 1 GM in Sodium Chloride 0.9% 100 ML IVPB SCH (17:19)
[2021-05-15] MEDS ORDERED: VANCOMYCIN 1.25 GM/250 ML BAG 1.25 GM in Premix Bag 1 BAG IVPB SCH (18:00)
[2021-05-15 19:08] LABS: Potassium 3.9 mmol/L (3.5-5.1)
[2021-05-15] MEDS ORDERED: Atorvastatin Calcium 20 MG TAB PO SCH (21:00)
[2021-05-15] MEDS: Fluticasone Propionate Nasal Spray 16 gm Bottle NASAL SCH (21:13)
[2021-05-15] MEDS: Mometasone 200 MCG/Formoterol 5 MCG 120 PUFF INHALER INH SCH (23:16)
[2021-05-16 04:36] LABS: #Lymphocytes 1.1 thou/uL (1.20-3.40); #Monocytes 0.5 thou/uL (0.11-0.59); #Neutrophils 9.3 thou/uL (1.40-6.50); %Basophils 0.1 % (0.0-1.0); %Eosinophils 0.3 % (0.0-10.0); %Lymphocytes 10.1 % (21.0-51.0); %Monocytes 4.8 % (0.0-10.0); %Neutrophils 84.7 % (42.0-75.0); Hemoglobin 7.9 g/dL (12.0-16.0); Mean Corpuscular HGB CONC 30.6 g/dL (32.0-36.0); Mean Corpuscular Hemoglobin 32.1 pg (27.0-31.0); Mean Platelet Volume 8.2 fL (7.4-10.4); Platelet Count 252 thou/uL (130-400); RBC Distribution Width 19.2 % (11.5-14.5); Red Blood Cell (RBC) Count 2.47 mill/uL (4.20-5.40)
[2021-05-16] MEDS ORDERED: hydrALAZINE 20 MG/ML VIAL SLOW IVP PRN (04:36)
[2021-05-16 05:05] LABS: ALT (SGPT) 11 U/L (8-55); AST (SGOT) 13 U/L (5-34); Albumin 3.1 g/dL (3.5-5.0); Alkaline Phosphatase 90 U/L (40-110); Anion Gap 16 mmol/L (10-20); BUN (Urea Nitrogen) 24 mg/dL (9.8-20.1); Bilirubin, Total 0.8 mg/dL (0.2-1.2); Calc. Creatinine Clearance 60 mL/min (70-130); Calcium 6.3 mg/dL (7.8-10.44); Carbon Dioxide 22 mmol/L (22-29); Chloride 107 mmol/L (98-107); Globulin 3.6 g/dL (2.4-3.5); Glucose 106 mg/dL (70-105); Iron 53 ug/dL (50-170); Iron Binding Capacity, Total 209 mcg/dL (265-497); Magnesium 1.1 mg/dL (1.6-2.6); Potassium 3.7 mmol/L (3.5-5.1); Protein, Total 6.7 g/dL (6.0-8.3); Sodium 141 mmol/L (136-145)
[2021-05-16 05:08] LABS: Iron 53 ug/dL (50-170); Iron Binding Capacity, Total 204 mcg/dL (265-497); Phosphorus 3.8 mg/dL (2.3-4.7)
[2021-05-16] MEDS ORDERED: Magnesium Sulfate 4 GM in Sodium Chloride 0.9% 250 ML 250 ML IVPB SCH (06:00)
[2021-05-16] MEDS: Mometasone 200 MCG/Formoterol 5 MCG 120 PUFF INHALER INH SCH (07:07)
[2021-05-16] MEDS: Ferrous Sulfate 325 MG TAB PO SCH ×2 (08:55→16:36)
[2021-05-16] MEDS: Folic Acid 1 MG TAB PO SCH (08:58)
[2021-05-16] MEDS: Zinc Sulfate 220 MG CAP PO SCH (08:58)
[2021-05-16] MEDS: Metoprolol Tartrate 25 MG TAB PO SCH (08:59)
[2021-05-16] MEDS: Ascorbic Acid 500 mg Chewable Tablet PO SCH (08:59)
[2021-05-16] MEDS ORDERED: Cholecalciferol (Vitamin D3) 400 UNITS TAB PO SCH (09:00)
[2021-05-16] MEDS ORDERED: Zinc Sulfate 220 MG CAP PO SCH (09:00)
[2021-05-16] MEDS ORDERED: Amlodipine 10 MG TAB PO SCH (09:00)
[2021-05-16] MEDS: Famotidine 20 MG TAB PO SCH (09:00)
[2021-05-16] MEDS ORDERED: Enoxaparin Sodium 40 MG/0.4 ML SYRINGE SC SCH (09:00)
[2021-05-16] MEDS ORDERED: Ascorbic Acid 500 mg Chewable Tablet PO SCH (09:00)
[2021-05-16] MEDS: Dexamethasone 4 mg/ml Vial SLOW IVP SCH (09:01)
[2021-05-16] MEDS: Fluticasone Propionate Nasal Spray 16 gm Bottle NASAL SCH (09:29)
[2021-05-16] MEDS ORDERED: Magnesium 2 GM/50 ML 2 GM in Premix Bag 1 BAG IVPB SCH (10:00)
[2021-05-16] MEDS: Nicotine 21 MG PATCH TD SCH (11:20)
[2021-05-16] MEDS ORDERED: Electrolyte Replacement Protocol FS PRN (11:30)
[2021-05-16] MEDS: cefTRIAXone\\ROCEPHIN 1 GM in Sodium Chloride 0.9% 100 ML IVPB SCH (16:36)
[2021-05-16] MEDS: HumaLOG 300 UNITS/3 ML VIAL SC PRN ×2 (17:27→22:12)
[2021-05-16] MEDS ORDERED: Dextrose 50% Abboject 50 ML SYRINGE SLOW IVP PRN (21:41)
[2021-05-16] MEDS ORDERED: Dextrose 5% in Water 1,000 ML IV PRN (21:41)
[2021-05-16] MEDS ORDERED: Atorvastatin Calcium 20 MG TAB PO SCH (22:00)
[2021-05-17] MEDS ORDERED: Enoxaparin Sodium 40 MG/0.4 ML SYRINGE SC SCH ×2 (09:00→10:30)
[2021-05-17] MEDS ORDERED: Fluticasone Propionate Nasal Spray 16 gm Bottle NASAL SCH (09:00)
[2021-05-17] MEDS ORDERED: Benzonatate 100 MG CAP PO PRN (10:32)
[2021-05-17] MEDS ORDERED: Acetaminophen 650 MG Suppository PR PRN (10:32)
[2021-05-17] MEDS ORDERED: Acetaminophen 325 MG TAB PO PRN (10:32)
[2021-05-17] MEDS ORDERED: Electrolyte Replacement Protocol FS PRN (10:35)
[2021-05-17] MEDS ORDERED: Folic Acid 1 MG TAB PO SCH (10:45)
[2021-05-17] MEDS ORDERED: Zinc Sulfate 220 MG CAP PO SCH (10:45)
[2021-05-17] MEDS ORDERED: Amlodipine 10 MG TAB PO SCH (10:45)
[2021-05-17] MEDS ORDERED: Mometasone 200 MCG/Formoterol 5 MCG 120 PUFF INHALER INH SCH (10:45)
[2021-05-17] MEDS ORDERED: Metoprolol Tartrate 25 MG TAB PO SCH (10:45)
[2021-05-17] MEDS ORDERED: Ferrous Sulfate 325 MG TAB PO SCH ×2 (10:45→17:00)
[2021-05-17] MEDS ORDERED: Famotidine 20 MG TAB PO SCH (10:45)
[2021-05-17] MEDS ORDERED: Cholecalciferol (Vitamin D3) 400 UNITS TAB PO SCH (10:45)
[2021-05-17] MEDS ORDERED: Dexamethasone 4 mg/ml Vial SLOW IVP SCH (10:45)
[2021-05-17] MEDS ORDERED: Ascorbic Acid 500 mg Chewable Tablet PO SCH (10:45)
[2021-05-17] MEDS: Nicotine 21 MG PATCH TD SCH (11:04)
[2021-05-17] MEDS: hydrALAZINE 20 MG/ML VIAL SLOW IVP PRN (11:35)
[2021-05-17] MEDS: Vancomycin 1.5 GRAM/300 ML BAG 1.5 GM in Premix Bag 1 BAG IVPB SCH (11:52)
[2021-05-17] MEDS: HumaLOG 300 UNITS/3 ML VIAL SC PRN ×2 (17:24→20:31)
[2021-05-17] MEDS: Ferrous Sulfate 325 MG TAB PO SCH (17:25)
[2021-05-17] MEDS: Mometasone 200 MCG/Formoterol 5 MCG 120 PUFF INHALER INH SCH (19:10)
[2021-05-17] MEDS: Famotidine 20 MG TAB PO SCH (20:25)
[2021-05-17] MEDS: Atorvastatin Calcium 20 MG TAB PO SCH (20:30)
[2021-05-17] MEDS: Metoprolol Tartrate 25 MG TAB PO SCH (20:30)
[2021-05-17] MEDS: Fluticasone Propionate Nasal Spray 16 gm Bottle NASAL SCH (20:30)
[2021-05-18] MEDS: Mometasone 200 MCG/Formoterol 5 MCG 120 PUFF INHALER INH SCH ×2 (08:01→19:20)
[2021-05-18] MEDS ORDERED: Ascorbic Acid 500 mg Chewable Tablet PO SCH (09:00)
[2021-05-18] MEDS ORDERED: Dexamethasone 4 mg/ml Vial SLOW IVP SCH (09:00)
[2021-05-18] MEDS: Ferrous Sulfate 325 MG TAB PO SCH ×2 (09:02→16:20)
[2021-05-18] MEDS: Folic Acid 1 MG TAB PO SCH (09:02)
[2021-05-18] MEDS: Cholecalciferol (Vitamin D3) 400 UNITS TAB PO SCH (09:02)
[2021-05-18] MEDS: Amlodipine 10 MG TAB PO SCH (09:02)
[2021-05-18] MEDS: Zinc Sulfate 220 MG CAP PO SCH (09:02)
[2021-05-18] MEDS: Famotidine 20 MG TAB PO SCH ×2 (09:03→20:16)
[2021-05-18] MEDS: Metoprolol Tartrate 25 MG TAB PO SCH ×2 (09:03→20:16)
[2021-05-18] MEDS: Ascorbic Acid 500 mg Chewable Tablet PO SCH (09:03)
[2021-05-18] MEDS: Fluticasone Propionate Nasal Spray 16 gm Bottle NASAL SCH ×2 (09:04→20:15)
[2021-05-18] MEDS: Enoxaparin Sodium 40 MG/0.4 ML SYRINGE SC SCH (09:04)
[2021-05-18] MEDS: Vancomycin 1.5 GRAM/300 ML BAG 1.5 GM in Premix Bag 1 BAG IVPB SCH (11:09)
[2021-05-18] MEDS: hydrALAZINE 20 MG/ML VIAL SLOW IVP PRN ×3 (11:10→23:56)
[2021-05-18] MEDS: Nicotine 21 MG PATCH TD SCH (11:10)
[2021-05-18] MEDS ORDERED: hydrALAZINE 25 MG TAB PO SCH (11:45)
[2021-05-18] MEDS: HumaLOG 300 UNITS/3 ML VIAL SC PRN (17:06)
[2021-05-18] MEDS: hydrALAZINE 25 MG TAB PO SCH (20:16)
[2021-05-18] MEDS: Atorvastatin Calcium 20 MG TAB PO SCH (20:16)
[2021-05-19] MEDS: Mometasone 200 MCG/Formoterol 5 MCG 120 PUFF INHALER INH SCH ×2 (07:50→19:15)
[2021-05-19] MEDS: Amlodipine 10 MG TAB PO SCH (08:37)
[2021-05-19] MEDS: Ferrous Sulfate 325 MG TAB PO SCH ×2 (08:37→17:25)
[2021-05-19] MEDS: Ascorbic Acid 500 mg Chewable Tablet PO SCH (08:38)
[2021-05-19] MEDS: Enoxaparin Sodium 40 MG/0.4 ML SYRINGE SC SCH (08:38)
[2021-05-19] MEDS: hydrALAZINE 25 MG TAB PO SCH ×2 (08:39→20:46)
[2021-05-19] MEDS: Folic Acid 1 MG TAB PO SCH (08:39)
[2021-05-19] MEDS: Famotidine 20 MG TAB PO SCH ×2 (08:39→20:46)
[2021-05-19] MEDS: Zinc Sulfate 220 MG CAP PO SCH (08:40)
[2021-05-19] MEDS: Metoprolol Tartrate 25 MG TAB PO SCH ×2 (08:40→20:46)
[2021-05-19] MEDS: Fluticasone Propionate Nasal Spray 16 gm Bottle NASAL SCH ×2 (08:41→20:47)
[2021-05-19] MEDS: Cholecalciferol (Vitamin D3) 400 UNITS TAB PO SCH (08:55)
[2021-05-19 10:51] LABS: Vancomycin, Trough 30.9 ug/mL
[2021-05-19] MEDS: Vancomycin 1.5 GRAM/300 ML BAG 1.5 GM in Premix Bag 1 BAG IVPB SCH (10:59)
[2021-05-19] MEDS ORDERED: Vancomycin 1.5 GRAM/300 ML BAG 1.5 GM in Premix Bag 1 BAG IVPB SCH (11:00)
[2021-05-19] MEDS: Nicotine 21 MG PATCH TD SCH (11:11)
[2021-05-19 11:50] LABS: #Eosinphils 0.1 thou/uL (0.0-0.7); #Lymphocytes 1.5 thou/uL (1.20-3.40); #Monocytes 0.7 thou/uL (0.11-0.59); %Eosinophils 0.7 % (0.0-10.0); %Lymphocytes 12.3 % (21.0-51.0); %Monocytes 5.8 % (0.0-10.0); %Neutrophils 81.1 % (42.0-75.0); Hemoglobin 7.7 g/dL (12.0-16.0); Mean Corpuscular HGB CONC 31.2 g/dL (32.0-36.0); Mean Corpuscular Hemoglobin 32.4 pg (27.0-31.0); Mean Platelet Volume 7.3 fL (7.4-10.4); Platelet Count 270 thou/uL (130-400); RBC Distribution Width 20.4 % (11.5-14.5); Red Blood Cell (RBC) Count 2.37 mill/uL (4.20-5.40); White Blood Cell (WBC) Count 12.3 thou/uL (4.8-10.8)
[2021-05-19 12:04] LABS: Anion Gap 12 mmol/L (10-20); BUN (Urea Nitrogen) 25 mg/dL (9.8-20.1); Calc. Creatinine Clearance 62 mL/min (70-130); Carbon Dioxide 22 mmol/L (22-29); Chloride 111 mmol/L (98-107); Glucose 148 mg/dL (70-105); Potassium 3.6 mmol/L (3.5-5.1); Sodium 141 mmol/L (136-145)
[2021-05-19] MEDS: HumaLOG 300 UNITS/3 ML VIAL SC PRN (17:25)
[2021-05-19] MEDS: Atorvastatin Calcium 20 MG TAB PO SCH (20:46)
[2021-05-20 04:56] LABS: Anion Gap 13 mmol/L (10-20); BUN (Urea Nitrogen) 26 mg/dL (9.8-20.1); Calc. Creatinine Clearance 57 mL/min (70-130); Carbon Dioxide 25 mmol/L (22-29); Chloride 109 mmol/L (98-107); Glucose 99 mg/dL (70-105); Sodium 143 mmol/L (136-145)
[2021-05-20] MEDS: Mometasone 200 MCG/Formoterol 5 MCG 120 PUFF INHALER INH SCH ×2 (07:15→18:36)
[2021-05-20] MEDS: Zinc Sulfate 220 MG CAP PO SCH (08:59)
[2021-05-20] MEDS: Cholecalciferol (Vitamin D3) 400 UNITS TAB PO SCH (08:59)
[2021-05-20] MEDS: Ascorbic Acid 500 mg Chewable Tablet PO SCH (08:59)
[2021-05-20] MEDS: Ferrous Sulfate 325 MG TAB PO SCH ×2 (08:59→17:12)
[2021-05-20] MEDS: Metoprolol Tartrate 25 MG TAB PO SCH ×2 (08:59→21:06)
[2021-05-20] MEDS: Famotidine 20 MG TAB PO SCH ×2 (08:59→21:07)
[2021-05-20] MEDS: Folic Acid 1 MG TAB PO SCH (08:59)
[2021-05-20] MEDS: Amlodipine 10 MG TAB PO SCH (09:00)
[2021-05-20] MEDS: Enoxaparin Sodium 40 MG/0.4 ML SYRINGE SC SCH (09:00)
[2021-05-20] MEDS: Fluticasone Propionate Nasal Spray 16 gm Bottle NASAL SCH ×2 (09:00→21:07)
[2021-05-20] MEDS: hydrALAZINE 25 MG TAB PO SCH ×2 (09:00→21:06)
[2021-05-20 09:17] LABS: Vancomycin, Random 19.1 ug/mL (See Comment)
[2021-05-20] MEDS: Nicotine 21 MG PATCH TD SCH (11:17)
[2021-05-20] MEDS: Vancomycin HCl 750 MG in Sodium Chloride 0.9% 250 ML 250 ML IVPB SCH (11:17)
[2021-05-20] MEDS: metFORMIN 500 MG TAB PO SCH (17:12)
[2021-05-20] MEDS: Atorvastatin Calcium 20 MG TAB PO SCH (21:07)
[2021-05-21] MEDS: Mometasone 200 MCG/Formoterol 5 MCG 120 PUFF INHALER INH SCH ×2 (07:19→19:16)
[2021-05-21 07:35] LABS: Hemoglobin 7.7 g/dL (12.0-16.0); Mean Corpuscular HGB CONC 29.5 g/dL (32.0-36.0); Mean Corpuscular Hemoglobin 31.8 pg (27.0-31.0); Mean Platelet Volume 7.7 fL (7.4-10.4); Platelet Count 229 thou/uL (130-400); RBC Distribution Width 20.3 % (11.5-14.5); Red Blood Cell (RBC) Count 2.41 mill/uL (4.20-5.40)
[2021-05-21 07:36] LABS: #Eosinphils 0.2 thou/uL (0.0-0.7); #Lymphocytes 0.8 thou/uL (1.20-3.40); #Monocytes 0.5 thou/uL (0.11-0.59); #Neutrophils 6.5 thou/uL (1.40-6.50); %Basophils 0.1 % (0.0-1.0); %Lymphocytes 10.2 % (21.0-51.0); %Monocytes 5.9 % (0.0-10.0); %Neutrophils 81.9 % (42.0-75.0)
[2021-05-21 07:53] LABS: Anion Gap 14 mmol/L (10-20); BUN (Urea Nitrogen) 24 mg/dL (9.8-20.1); Calc. Creatinine Clearance 69 mL/min (70-130); Calcium 8.3 mg/dL (7.8-10.44); Carbon Dioxide 19 mmol/L (22-29); Chloride 109 mmol/L (98-107); Glucose 84 mg/dL (70-105); Potassium 4.3 mmol/L (3.5-5.1); Sodium 138 mmol/L (136-145)
[2021-05-21 08:06] LABS: Helmet Cells SLIGHT = 2-5 cells (100X) (0-1/hpf); Hypochromia SLIGHT = 6-15 cells (100X) (0-5/hpf); MDiff Complete? YES; Macrocytosis MODERATE=16-30 cells (100X) (0-5/hpf); Platelet Morphology Comment Appears Adequate; Polychromasia SLIGHT = 2-3 cells (100X) (0-2/hpf); Schistocytes SLIGHT = 2-5 cells (100X) (0-1/hpf); Target Cells SLIGHT = 2-5 cells (100X) (0-1/hpf); Tear Drops SLIGHT = 2-5 cells (100X) (0-1/hpf)
[2021-05-21] MEDS: Zinc Sulfate 220 MG CAP PO SCH (08:42)
[2021-05-21] MEDS: Ferrous Sulfate 325 MG TAB PO SCH ×2 (08:42→16:58)
[2021-05-21] MEDS: Cholecalciferol (Vitamin D3) 400 UNITS TAB PO SCH (08:42)
[2021-05-21] MEDS: Folic Acid 1 MG TAB PO SCH (08:42)
[2021-05-21] MEDS: Ascorbic Acid 500 mg Chewable Tablet PO SCH (08:42)
[2021-05-21] MEDS: metFORMIN 500 MG TAB PO SCH ×2 (08:43→16:58)
[2021-05-21] MEDS: Amlodipine 10 MG TAB PO SCH (08:43)
[2021-05-21] MEDS: Famotidine 20 MG TAB PO SCH ×2 (08:43→21:23)
[2021-05-21] MEDS: hydrALAZINE 25 MG TAB PO SCH ×2 (08:43→21:22)
[2021-05-21] MEDS: Metoprolol Tartrate 25 MG TAB PO SCH ×2 (08:43→21:23)
[2021-05-21] MEDS: predniSONE 20 MG TAB PO SCH (08:43)
[2021-05-21] MEDS: Enoxaparin Sodium 40 MG/0.4 ML SYRINGE SC SCH (08:44)
[2021-05-21] MEDS: Fluticasone Propionate Nasal Spray 16 gm Bottle NASAL SCH ×2 (08:44→21:21)
[2021-05-21] MEDS: Nicotine 21 MG PATCH TD SCH (11:05)
[2021-05-21] MEDS: Vancomycin HCl 750 MG in Sodium Chloride 0.9% 250 ML 250 ML IVPB SCH (11:05)
[2021-05-21] MEDS ORDERED: Metoprolol Tartrate 25 MG TAB PO SCH (12:00)
[2021-05-21] MEDS: HumaLOG 300 UNITS/3 ML VIAL SC PRN (16:58)
[2021-05-21] MEDS: Atorvastatin Calcium 20 MG TAB PO SCH (21:23)
[2021-05-22] MEDS: Mometasone 200 MCG/Formoterol 5 MCG 120 PUFF INHALER INH SCH (07:27)
[2021-05-22 09:20] VITALS: TEMP 98.4
[2021-05-22] MEDS: Ascorbic Acid 500 mg Chewable Tablet PO SCH (09:21)
[2021-05-22] MEDS: predniSONE 20 MG TAB PO SCH (09:22)
[2021-05-22] MEDS: Folic Acid 1 MG TAB PO SCH (09:22)
[2021-05-22] MEDS: Cholecalciferol (Vitamin D3) 400 UNITS TAB PO SCH (09:23)
[2021-05-22] MEDS: metFORMIN 500 MG TAB PO SCH (09:23)
[2021-05-22] MEDS: hydrALAZINE 25 MG TAB PO SCH (09:23)
[2021-05-22] MEDS: Amlodipine 10 MG TAB PO SCH (09:23)
[2021-05-22] MEDS: Ferrous Sulfate 325 MG TAB PO SCH (09:23)
[2021-05-22] MEDS: Metoprolol Tartrate 25 MG TAB PO SCH (09:23)
[2021-05-22] MEDS: Zinc Sulfate 220 MG CAP PO SCH (09:23)
[2021-05-22] MEDS: Fluticasone Propionate Nasal Spray 16 gm Bottle NASAL SCH (09:24)
[2021-05-22] MEDS: Famotidine 20 MG TAB PO SCH (09:24)
[2021-05-22] MEDS: Enoxaparin Sodium 40 MG/0.4 ML SYRINGE SC SCH (09:24)
[2021-05-22 10:45] LABS: Vancomycin, Trough 15.5 ug/mL
[2021-05-22 11:21] VITALS: BP 148/65
[2021-05-22] MEDS: Nicotine 21 MG PATCH TD SCH (11:22)
[2021-05-22] MEDS: Vancomycin HCl 750 MG in Sodium Chloride 0.9% 250 ML 250 ML IVPB SCH (11:23)
== END 2021-05-22 14:36 | disposition home health service (06) | DRG 177 ==
LOC: ERS 06:38 → 2NO 08:21 → UNDOADMIN 08:31 → ERHOLD 08:31 → 2NO 12:32 → ERHOLD 12:35 → UNDODISIN 05-16 17:50
PROVIDERS: ADMIT Hospitalist; ATTEND Family Medicine
PROC: 5A09357 Assistance with Respiratory Ventilation, Less than 24 Consecutive Hours, Continuous Positive Airway Pressure (ICD-10-PCS; principal; 2021-05-13)
PROC: 3E03329 Introduction of Other Anti-infective into Peripheral Vein, Percutaneous Approach (ICD-10-PCS; 2021-05-13)
PROC: 02HV33Z Insertion of Infusion Device into Superior Vena Cava, Percutaneous Approach (ICD-10-PCS; 2021-05-20)
PROC: B5181ZA Fluoroscopy of Superior Vena Cava using Low Osmolar Contrast, Guidance (ICD-10-PCS; 2021-05-20)
PROC: B548ZZA Ultrasonography of Superior Vena Cava, Guidance (ICD-10-PCS; 2021-05-20)
DX: J15.212 Pneumonia due to Methicillin resistant Staphylococcus aureus (principal); J96.21 Acute and chronic respiratory failure with hypoxia; J44.1 Chronic obstructive pulmonary disease with (acute) exacerbation; J44.0 Chronic obstructive pulmonary disease with (acute) lower respiratory infection; N17.9 Acute kidney failure, unspecified; I13.0 Hypertensive heart and chronic kidney disease with heart failure and stage 1 through stage 4 chronic kidney disease, or unspecified chronic kidney disease; I50.32 Chronic diastolic (congestive) heart failure; N25.81 Secondary hyperparathyroidism of renal origin; U09.9 Post COVID-19 condition, unspecified; E21.3 Hyperparathyroidism, unspecified; E78.5 Hyperlipidemia, unspecified; E88.09 Other disorders of plasma-protein metabolism, not elsewhere classified; F17.210 Nicotine dependence, cigarettes, uncomplicated; F12.10 Cannabis abuse, uncomplicated; E11.40 Type 2 diabetes mellitus with diabetic neuropathy, unspecified; E11.51 Type 2 diabetes mellitus with diabetic peripheral angiopathy without gangrene; E87.6 Hypokalemia; N18.30 Chronic kidney disease, stage 3 unspecified; E11.22 Type 2 diabetes mellitus with diabetic chronic kidney disease; D63.1 Anemia in chronic kidney disease; I45.81 Long QT syndrome; D53.9 Nutritional anemia, unspecified; E11.65 Type 2 diabetes mellitus with hyperglycemia; I25.10 Atherosclerotic heart disease of native coronary artery without angina pectoris; R07.89 Other chest pain; G47.33 Obstructive sleep apnea (adult) (pediatric); Z89.612 Acquired absence of left leg above knee; Z99.81 Dependence on supplemental oxygen; Z95.828 Presence of other vascular implants and grafts; Z88.1 Allergy status to other antibiotic agents; Z88.2 Allergy status to sulfonamides; Z79.899 Other long term (current) drug therapy; Z79.52 Long term (current) use of systemic steroids; Z89.512 Acquired absence of left leg below knee; R05.9 Cough, unspecified; R91.8 Other nonspecific abnormal finding of lung field
CPT/HCPCS: 36415; 36416; 36569; 70220; 71045; 71046; 71275; 76770; 80048; 80053; 80202; 81001; 82570; 82607; 82746; 83036; 83540; 83550; 83605; 83735; 83880; 83970; 84100; 84145; 84156; 85025; 86140; 87040; 87070; 87077; 87081; 87186; 87205; 87449; 87899; 93005; 94640; 94660; 96374; 96375; C1751; J0360; J0610; J0692; J0696; J1100; J1650; J1815; J1940; J1956; J3370; J3475; J3490; J7050; J7512; J7620; Q9967

== ENCOUNTER 2022-01-31 15:52 | Outpatient (CLI) | payer MEDICARE, MEDICAID ==
[2022-01-31 16:40] LABS: Hemoglobin 12.2 g/dL (12.0-15.5); Mean Corpuscular HGB CONC 33.9 g/dL (32.0-36.0); Mean Corpuscular Volume 97.3 fl (81.6-98.3); Mean Platelet Volume 10.2 fl (7.4-10.4); Platelet Count 198 10x3/uL (150-450); RBC Distribution Width 15.9 % (11.5-14.5); White Blood Cell (WBC) Count 7.9 10x3/uL (3.5-10.5)
[2022-01-31 16:58] LABS: Anion Gap 16 mmol/L (10-20); BUN (Urea Nitrogen) 31 mg/dL (9.8-20.1); Calc. Creatinine Clearance 0 mL/min (70-130); Calcium 8.7 mg/dL (7.8-10.44); Carbon Dioxide 17 mmol/L (23-31); Chloride 111 mmol/L (98-107); Estimated GFR 25; Glucose 106 mg/dL (80-115); Potassium 5.1 mmol/L (3.5-5.1); Sodium 139 mmol/L (136-145)
== END 2022-01-31 15:53 | disposition home or self-care (01) ==
LOC: LABBT 15:52
PROVIDERS: ATTEND Thoracic Surgery (Cardiothoracic Vascular Surgery)
DX: Z01.812 Encounter for preprocedural laboratory examination (principal); I70.221 Atherosclerosis of native arteries of extremities with rest pain, right leg
CPT/HCPCS: 80048; 85027

== ENCOUNTER 2022-02-01 06:19 | Day surgery (SDC) | payer MEDICARE, MEDICAID ==
[2022-02-01 02:55] VITALS: BMI 28.0
[2022-02-01] MEDS ORDERED: Lidocaine 1% (PF) 30 ML VIAL ONE ×2 (06:30→06:35)
[2022-02-01] MEDS ORDERED: Heparin 10,000 UNITS/ 10 ML VIAL ONE (06:30)
[2022-02-01] MEDS ORDERED: Midazolam HCl 2 mg/2 ml Vial ONE (07:30)
[2022-02-01] MEDS ORDERED: Protamine Sulfate 50 MG/5 ML VIAL ONE (07:57)
[2022-02-01] MEDS ORDERED: Clopidogrel Bisulfate 300 MG TAB ONE (07:58)
[2022-02-01] MEDS ORDERED: fentaNYL PF 100 MCG/2 ML SYRINGE ONE (08:36)
[2022-02-01] MEDS ORDERED: Iopamidol 370 76% 100 ML VIAL ONE (09:58)
== END 2022-02-01 13:36 | disposition home or self-care (01) ==
LOC: SDC 06:19
PROVIDERS: ATTEND Thoracic Surgery (Cardiothoracic Vascular Surgery)
PROC: 047C3DZ Dilation of Right Common Iliac Artery with Intraluminal Device, Percutaneous Approach (ICD-10-PCS; principal; 2022-02-01)
DX: E11.51 Type 2 diabetes mellitus with diabetic peripheral angiopathy without gangrene (principal); I25.10 Atherosclerotic heart disease of native coronary artery without angina pectoris; I25.2 Old myocardial infarction; I13.0 Hypertensive heart and chronic kidney disease with heart failure and stage 1 through stage 4 chronic kidney disease, or unspecified chronic kidney disease; E11.22 Type 2 diabetes mellitus with diabetic chronic kidney disease; N18.30 Chronic kidney disease, stage 3 unspecified; I50.9 Heart failure, unspecified; Z79.82 Long term (current) use of aspirin; Z79.84 Long term (current) use of oral hypoglycemic drugs; Z79.899 Other long term (current) drug therapy; Z88.2 Allergy status to sulfonamides
CPT/HCPCS: 37221; 85347; C1725; C1769 ×2; C1894 ×2; 99152; 99153; J1644; J2001; J2250; J2720; Q9967

== ENCOUNTER 2023-09-04 10:07 | Inpatient (IN) | payer MEDICARE, MEDICAID ==
[2023-09-04] MEDS ORDERED: Iopamidol-370 76% 500 ML MDV (1 ML CHARGE) ONE (10:34)
[2023-09-04] MEDS ORDERED: niCARdipine 25 MG/10 ML SDV ONE ×3 (10:36→16:13)
[2023-09-04 10:59] LABS: #Basophils Less than 0.03 10x3/uL (0.0-0.2); %Basophils 0.3 % (0.0-1.0); %Lymphocytes 26.7 % (21.0-51.0); %Monocytes 6.5 % (0.0-10.0); %Neutrophils 65.2 % (42.0-75.0); Hematocrit 31.1 % (36.0-47.0); Mean Corpuscular HGB CONC 32.2 g/dL (32.0-36.0); Mean Corpuscular Hemoglobin 32.5 pg (27.0-31.0); Mean Platelet Volume 10.2 fL (7.4-10.4); Platelet Count 236 10x3/uL (130-400); RBC Distribution Width 16.1 % (11.5-14.5); Red Blood Cell (RBC) Count 3.08 mill/uL (4.20-5.40)
[2023-09-04 11:12] LABS: INR-International Normal Ratio 1.1; PTT 37.2 sec (22.9-36.1); Prothrombin Time 14.5 sec (12.0-14.7)
[2023-09-04 11:15] LABS: ALT (SGPT) 7 U/L (8-55); AST (SGOT) 11 U/L (5-34); Albumin 2.7 g/dL (3.4-4.8); Alkaline Phosphatase 103 U/L (40-110); Anion Gap 14 mmol/L (10-20); BUN (Urea Nitrogen) 43 mg/dL (9.8-20.1); Bilirubin, Total 0.2 mg/dL (0.2-1.2); Calc. Creatinine Clearance 0 mL/min (70-130); Calcium 9.1 mg/dL (7.8-10.44); Carbon Dioxide 19 mmol/L (23-31); Chloride 107 mmol/L (98-107); Estimated GFR 18; Globulin 4.4 g/dL (2.4-3.5); Glucose 93 mg/dL (80-115); Potassium 4.3 mmol/L (3.5-5.1); Protein, Total 7.1 g/dL (5.8-8.1); Sodium 136 mmol/L (136-145)
[2023-09-04] MEDS ORDERED: Tenecteplase 50 MG ONE (11:47)
[2023-09-04] MEDS ORDERED: Morphine 4 MG/ML VIAL ONE (12:09)
[2023-09-04] MEDS ORDERED: Proparacaine 0.5% Opth 15 ML BOT ONE (12:14)
[2023-09-04] MEDS ORDERED: Ondansetron PF 4 MG/2 ML Vial ONE ×2 (12:43→13:22)
[2023-09-04] MEDS ORDERED: [UNRECOGNIZED DRUG - REMARK] FS SCH (13:12)
[2023-09-04] MEDS ORDERED: hydrALAZINE 20 MG/ML VIAL SLOW IVP PRN (13:12)
[2023-09-04] MEDS ORDERED: Labetalol HCl 100 MG/20 ML VIAL SLOW IVP PRN (13:12)
[2023-09-04] MEDS ORDERED: Acetaminophen 325 MG TAB PO PRN (13:14)
[2023-09-04] MEDS ORDERED: Mag-Al 1200 mg/1200 mg/30 ML UDCUP PO PRN (13:14)
[2023-09-04] MEDS ORDERED: Docusate 100 MG CAP PO PRN (13:14)
[2023-09-04] MEDS ORDERED: Acetaminophen 500 MG TAB ONE (13:30)
[2023-09-04] MEDS ORDERED: Prochlorperazine 10 MG/2 ML VIAL ONE (13:37)
[2023-09-04] MEDS: niCARdipine 25 MG in Sodium Chloride 0.9% 250 ML 250 ML IVPB PRN (18:00)
[2023-09-04] MEDS: Sodium Chloride 0.9% 1,000 ML IV SCH (18:50)
[2023-09-04] MEDS: Scopolamine 1 mg/72 hour Patch TD SCH (21:10)
[2023-09-04] MEDS: Rosuvastatin 10 MG TAB PO SCH (21:11)
[2023-09-04] MEDS: Famotidine 20 MG TAB PO SCH (21:11)
[2023-09-04] MEDS: Famotidine/PF 20 mg/2ml Vial SLOW IVP SCH (21:11)
[2023-09-04 21:20] LABS: Amphetamine Not Detected (NotDetected); Barbiturates Screen Not Detected (NotDetected); Benzodiazepine Screen Not Detected (NotDetected); Cocaine Metabolite Screen Not Detected (NotDetected); Methadone Not Detected (NotDetected); Methamphetamine Not Detected (NotDetected); Opiate Screen Detected (NotDetected); Oxycodone Screen Not Detected (NotDetected); Phencyclidine (PCP) Not Detected (NotDetected); THC/Cannabinoid Screen Not Detected (NotDetected); Tricyclic Screen Not Detected (NotDetected)
[2023-09-04] MEDS: Ondansetron PF 4 MG/2 ML Vial IVP PRN (22:10)
[2023-09-05] MEDS: Sodium Chloride 0.9% 1,000 ML IV SCH (03:28)
[2023-09-05] MEDS: Promethazine HCl 12.5 MG in Sodium Chloride 0.9% 50 ML IVPB PRN (03:58)
[2023-09-05] MEDS: Acetaminophen 650 MG Suppository PR PRN (08:21)
[2023-09-05] MEDS: Albumin 25% 25 GM (100 mL) BOT IVPB SCH (10:59)
[2023-09-05 11:50] LABS: #Basophils Less than 0.03 10x3/uL (0.0-0.2); #Eosinphils Less than 0.03 10x3/uL (0.0-0.7); %Basophils 0.1 % (0.0-1.0); Hematocrit 29.7 % (36.0-47.0); Hemoglobin 9.6 g/dL (12.0-16.0); Mean Corpuscular HGB CONC 32.3 g/dL (32.0-36.0); Mean Corpuscular Hemoglobin 32.4 pg (27.0-31.0); Mean Corpuscular Volume 100.3 fL (78.0-98.0); Red Blood Cell (RBC) Count 2.96 mill/uL (4.20-5.40)
[2023-09-05 12:08] LABS: Anion Gap 16 mmol/L (10-20); BUN (Urea Nitrogen) 43 mg/dL (9.8-20.1); Calc. Creatinine Clearance 23 mL/min (70-130); Calcium 8.9 mg/dL (7.8-10.44); Carbon Dioxide 16 mmol/L (23-31); Chloride 114 mmol/L (98-107); Estimated GFR 16; Glucose 142 mg/dL (80-115); Potassium 4.7 mmol/L (3.5-5.1); Sodium 141 mmol/L (136-145)
[2023-09-05 12:47] LABS: %Lymphocytes 10.7 % (21.0-51.0); %Monocytes 4.7 % (0.0-10.0); %Neutrophils 84.1 % (42.0-75.0); Mean Platelet Volume 10.6 fL (7.4-10.4); Platelet Count 178 10x3/uL (130-400); RBC Distribution Width 16.4 % (11.5-14.5)
[2023-09-05] MEDS: Aspirin 300 MG Suppository PR SCH (17:28)
[2023-09-05] MEDS: Insulin Regular, Human 100 UNIT/ML 10 ML VIAL SC PRN (17:31)
[2023-09-05] MEDS: Heparin 5,000 UNITS/ML VIAL SC SCH (20:21)
[2023-09-05 21:15] LABS: Bacteria/HPF None Seen HPF (None Seen); Bilirubin Negative (Negative); Blood, Urine 3+ (Negative); Clarity Clear (Clear); Glucose, Urine (Dipstick) Normal (Negative); Ketone, Urine Negative (Negative); Leukocyte Negative Leu/uL (Negative); Nitrite Negative (Negative); Protein, Urine (Dipstick) 300 mg/dL (Neg-Trace); Specific Gravity, Urine 1.009 (1.002-1.036); Squamous Epithelial 0-3 HPF (0-3); Urobilinogen Normal mg/dL (Less than 2); WBC/HPF 0-3 HPF (0-3)
[2023-09-06 04:21] LABS: #Basophils Less than 0.03 10x3/uL (0.0-0.2); #Eosinphils Less than 0.03 10x3/uL (0.0-0.7); %Basophils 0.1 % (0.0-1.0); %Lymphocytes 9.1 % (21.0-51.0); %Monocytes 5.5 % (0.0-10.0); %Neutrophils 84.9 % (42.0-75.0); Mean Corpuscular HGB CONC 32.1 g/dL (32.0-36.0); Mean Corpuscular Hemoglobin 32.3 pg (27.0-31.0); Mean Corpuscular Volume 100.4 fL (78.0-98.0); Mean Platelet Volume 10.4 fL (7.4-10.4); Platelet Count 159 10x3/uL (130-400); RBC Distribution Width 16.5 % (11.5-14.5); Red Blood Cell (RBC) Count 2.79 mill/uL (4.20-5.40)
[2023-09-06 04:46] LABS: Anion Gap 20 mmol/L (10-20); BUN (Urea Nitrogen) 39 mg/dL (9.8-20.1); Calc. Creatinine Clearance 23 mL/min (70-130); Calcium 9.4 mg/dL (7.8-10.44); Carbon Dioxide 13 mmol/L (23-31); Cardiac Risk 3.7 (Less than 4.5); Chloride 119 mmol/L (98-107); Cholesterol 118 mg/dl (< 200 Desired); Estimated GFR 15; Glucose 138 mg/dL (80-115); HDL Cholesterol 32 mg/dL (>60 Neg Risk); LDL Cholesterol, Calculated 67 mg/dL; Potassium 4.4 mmol/L (3.5-5.1); Sodium 148 mmol/L (136-145); Triglycerides 95 mg/dL (Less than 150)
[2023-09-06 05:05] VITALS: BMI 26.0
[2023-09-06] MEDS: Sodium Chloride 0.45% 1,000 ML IV SCH (07:26)
[2023-09-06] MEDS: Aspirin 325 mg Enteric Coated Tablet PO SCH (09:00)
[2023-09-06 12:08] VITALS: BMI 26.0
[2023-09-06] MEDS: Cefepime 1 GM in Sodium Chloride 0.9% 100 ML IVPB SCH (12:19)
[2023-09-06] MEDS: Aspirin 300 MG Suppository PR SCH (14:18)
[2023-09-06] MEDS: metroNIDAZOLE 500 MG in Premix 1 BAG IVPB SCH (14:18)
[2023-09-06 14:35] LABS: Base Excess (BEa) -6.8 mEq/L (-2.0 to +3.0); CO2 Tension 33.4 mmHg (35.0-45.0); Carboxyhemoglobin (COHb) 0.7 gm% (0.0-3.0); Hematocrit-ABG 30 % (36.0-47.0); Hemoglobin (Hb) 10.2 g/dL (12.0-16.0); O2 Tension (PaO2), arterial 75.5 mmHg (> 80.0); Potassium - ABG Lab 4.74 mmol/L (3.70-5.30); pH, Arterial 7.349 (7.35-7.45)
[2023-09-06 14:39] LABS: Puncture Site LRA
[2023-09-06] MEDS: Glycopyrrolate 0.2 MG/ML 5 ML SYRINGE SLOW IVP SCH (16:18)
[2023-09-06] MEDS: Morphine 2 MG/ML VIAL SLOW IVP PRN (16:18)
[2023-09-06] MEDS: Lorazepam 2 MG/ML VIAL SLOW IVP PRN (20:19)
[2023-09-06 22:33] VITALS: BP 90/47; TEMP 97.8
[2023-09-07] MEDS ORDERED: Aspirin 300 MG Suppository PR SCH (09:00)
== END 2023-09-07 13:16 | disposition hospice, inpatient (51) | DRG 61 ==
LOC: ERS 10:07 → CCU 13:09 → MSONC 09-06 19:34
PROVIDERS: ADMIT Family Medicine; ATTEND Internal Medicine
PROC: 3E03317 Introduction of Other Thrombolytic into Peripheral Vein, Percutaneous Approach (ICD-10-PCS; principal; 2023-09-04)
PROC: 4A00X4Z Measurement of Central Nervous Electrical Activity, External Approach (ICD-10-PCS; 2023-09-06)
PROC: 4A033R1 Measurement of Arterial Saturation, Peripheral, Percutaneous Approach (ICD-10-PCS; 2023-09-06)
PROC: 3E03329 Introduction of Other Anti-infective into Peripheral Vein, Percutaneous Approach (ICD-10-PCS; 2023-09-06)
DX: I63.511 Cerebral infarction due to unspecified occlusion or stenosis of right middle cerebral artery (principal); A41.9 Sepsis, unspecified organism; J69.0 Pneumonitis due to inhalation of food and vomit; G93.41 Metabolic encephalopathy; G81.94 Hemiplegia, unspecified affecting left nondominant side; N17.9 Acute kidney failure, unspecified; I16.1 Hypertensive emergency; E87.1 Hypo-osmolality and hyponatremia; Z51.5 Encounter for palliative care; Z66 Do not resuscitate; I63.531 Cerebral infarction due to unspecified occlusion or stenosis of right posterior cerebral artery; N18.30 Chronic kidney disease, stage 3 unspecified; R44.9 Unspecified symptoms and signs involving general sensations and perceptions; I65.23 Occlusion and stenosis of bilateral carotid arteries; E11.51 Type 2 diabetes mellitus with diabetic peripheral angiopathy without gangrene; F17.210 Nicotine dependence, cigarettes, uncomplicated; E11.22 Type 2 diabetes mellitus with diabetic chronic kidney disease; I12.9 Hypertensive chronic kidney disease with stage 1 through stage 4 chronic kidney disease, or unspecified chronic kidney disease; G93.89 Other specified disorders of brain; Z89.512 Acquired absence of left leg below knee; Z98.890 Other specified postprocedural states; Z90.710 Acquired absence of both cervix and uterus; Z88.1 Allergy status to other antibiotic agents; Z88.2 Allergy status to sulfonamides; Z79.899 Other long term (current) drug therapy; Z79.82 Long term (current) use of aspirin
CPT/HCPCS: 36415; 36416; 36600; 70450; 70496; 70498; 70544; 70551; 71045; 71250; 71555; 74177; 80048; 80053; 80061; 80306; 81001; 82805; 83036; 84484; 85025; 85610; 85730; 87040; 93005; 93306; 93880; 94760; 95700; 95711; 95819; 96361; 96365; 96366; 96375; 96376; C8911; J0692; J0780; J1644; J1815; J2060; J2270; J2272; J2405; J2550; J3101; J3490; J7050; P9047; Q9967; S0028

== ENCOUNTER 2023-09-07 13:38 | Inpatient (IN) | payer OTHER ==
[2023-09-07] MEDS ORDERED: Scopolamine 1 mg/72 hour Patch TOP PRN (15:15)
[2023-09-07] MEDS ORDERED: Acetaminophen 650 MG Suppository PR PRN (15:15)
[2023-09-07] MEDS: Morphine 4 MG/ML VIAL SLOW IVP SCH (16:23)
[2023-09-07] MEDS: Lorazepam 2 MG/ML VIAL SLOW IVP SCH (16:24)
[2023-09-08 19:10] VITALS: BP 114/75; TEMP 100.6
[2023-09-08] MEDS: Morphine 2 MG/ML VIAL SLOW IVP PRN (20:59)
[2023-09-08] MEDS: Lorazepam 2 MG/ML VIAL SLOW IVP PRN (22:00)
[2023-09-09] MEDS: Hyoscyamine SL 0.125 MG TAB SL PRN (01:11)
[2023-09-09] MEDS: Morphine 4 MG/ML VIAL SLOW IVP SCH ×2 (01:11→02:36)
[2023-09-09] MEDS: Lorazepam 2 MG/ML VIAL SLOW IVP SCH ×2 (01:11→02:31)
== END 2023-09-09 10:08 | disposition expired | DRG 951 ==
LOC: MSONC 13:38
PROVIDERS: ADMIT Family Medicine; ATTEND Family Medicine
DX: Z51.5 Encounter for palliative care (principal); I63.9 Cerebral infarction, unspecified; I16.9 Hypertensive crisis, unspecified; N17.9 Acute kidney failure, unspecified; G93.40 Encephalopathy, unspecified; E11.51 Type 2 diabetes mellitus with diabetic peripheral angiopathy without gangrene; N18.9 Chronic kidney disease, unspecified; E11.22 Type 2 diabetes mellitus with diabetic chronic kidney disease; I12.9 Hypertensive chronic kidney disease with stage 1 through stage 4 chronic kidney disease, or unspecified chronic kidney disease; Z90.710 Acquired absence of both cervix and uterus; Z98.890 Other specified postprocedural states; Z88.1 Allergy status to other antibiotic agents; Z79.899 Other long term (current) drug therapy; Z79.82 Long term (current) use of aspirin
CPT/HCPCS: 36416; J2060; J2270; J2272